=== PATIENT | male | born 1965 | race Caucasian/White ===

== ENCOUNTER 2018-02-09 10:57 | Inpatient (IN) | payer OTHER, MEDICAID ==
[~2018-02-09] VITALS: Ht 172.7 cm; Wt 70.3 kg
--- NOTE | 2018-02-09 10:59 | NUR ---
PT BROUGHT TO BED IN WHEELCHAIR BY CAREGIVER
--- NOTE | 2018-02-09 11:00 | NUR ---
PT. CAME INTO ED FROM [place] WITH CAREGIVER DUE TO LOW BLOOD PRESSURE. PT. IS AAO TO NAME AND DATE OF AND PLACE. PT. USES ACCESORY MUSCLES TO BREATH RR TACHYPNEIC, SKIN WARM, AND MOIST UPON TOUCH. DENIES ANY PAIN, DENIES SOB, DENIES CHEST PAIN. LS: WHEEZES BILATERALLY THROUGHOUT. NON PRODUCTIVE COUGH PRESENT. BED IN LOWEST POSTION, SAFETY PRECAUTIONS INITIATED. Nestor QUAN AWARE.WILL CONTINUE TO MONITOR.
[2018-02-09 11:04] VITALS: BP 92/56
[2018-02-09] MEDS ORDERED: BENA20TA PO (11:25)
[2018-02-09] MEDS ORDERED: ASCO500T45 PO (11:30)
[2018-02-09] MEDS ORDERED: MAGN400S60 PO (11:34)
[2018-02-09] MEDS ORDERED: ACET-2619 PO (11:36)
[2018-02-09] MEDS ORDERED: BISA5ECT43 RC (11:36)
[2018-02-09] MEDS ORDERED: NACL 0.9% 1,000 ML IV ONE ×2 (11:50→12:35)
[2018-02-09] MEDS ORDERED: ZINC220C12 PO (12:04)
[2018-02-09] MEDS ORDERED: CARB15DR8 OT (12:04)
[2018-02-09] MEDS ORDERED: MULT-1869 PO (12:04)
[2018-02-09] MEDS ORDERED: CALC-784 PO (12:04)
--- NOTE | 2018-02-09 12:05 | NUR ---
PT. HAS B/P OF . DR. MERRILL NOTIFIED. 1 L OF NACL BOLUS STARTED.
--- NOTE | 2018-02-09 12:16 | NUR ---
XRAY AT BEDSIDE.
[2018-02-09 12:36] LABS: BASOPHILS % (AUTO) 0.4 % (0.0-2.0); EOSINOPHILS # (AUTO) 0.3 K/uL (0-0.4); EOSINOPHILS % (AUTO) 3.1 % (0.0-4.0); HEMATOCRIT 43.5 % (36-52); HEMOGLOBIN 14.3 g/dL (12.0-18.0); LYMPHOCYTES # (AUTO) 1.4 K/uL (2.0-11.5); LYMPHOCYTES % (AUTO) 13.1 % (20.5-51.1); MEAN CORPUSCULAR HEMOGLOBIN 27 pg (27-31); MEAN CORPUSCULAR HGB CONC 33 g/dL (33-37); MEAN CORPUSCULAR VOLUME 83.3 fL (80-94); MONOCYTES # (AUTO) 0.8 K/uL (0.8-1.0); MONOCYTES % (AUTO) 7.1 % (1.7-9.3); NEUTROPHILS # (AUTO) 8.3 K/uL (1.8-7.7); NEUTROPHILS % (AUTO) 76.3 % (42.2-75.2); PLATELET COUNT (AUTO) 213 K/uL (140-450); RED BLOOD CELL COUNT(AUTO) 5.22 MIL/uL (4.20-6.10); RED CELL DISTRIBUTION WIDTH 14.4 % (11.6-13.7); WHITE BLOOD COUNT (AUTO) 10.9 K/uL (4.8-10.8)
[2018-02-09 12:52] LABS: ANION GAP 13.3 (8-16); CARBON DIOXIDE 26.4 mmol/L (21-32); POTASSIUM 3.7 mmol/L (3.5-5.1)
[2018-02-09 12:58] LABS: ALBUMIN 2.7 g/dL (3.4-5.0); TOTAL BILIRUBIN 0.6 mg/dL (0.0-1.0)
[2018-02-09 13:01] LABS: PROTHROMBIN TIME 10.7 secs (10.8-13.4)
[2018-02-09 13:14] LABS: APPEARANCE,URINE CLEAR (CLEAR); BILIRUBIN,URINE NEGATIVE (NEGATIVE); BLOOD, URINE NEGATIVE (NEGATIVE); COLOR,URINE YELLOW (YELLOW); LEUKOCYTE ESTERASE ,URINE NEGATIVE (NEGATIVE); NITRITE, URINE NEGATIVE (NEGATIVE); PH,URINE 7.5 (5.0-9.0); UGLUCOSE NEGATIVE (NEGATIVE)
[2018-02-09 13:26] LABS: RBC,URINE 0-5 (RARE) /HPF (0-5); WBC,URINE 0-5 (RARE) /HPF (0-5)
--- NOTE | 2018-02-09 14:25 | NUR ---
PT. RESTING COMFORTABLY IN BED, CAREGIVER AT BEDSIDE. WILL CONTINUE TO MONITOR.
--- NOTE | 2018-02-09 14:30 | NUR ---
PT. B/P AT , DR. MERRILL NOTIFIED. NO FURTHER ORDERS AT THIS TIME WILL CONTINUE TO MONITOR.
[2018-02-09] MEDS: NACL 0.9% 1,000 ML IV SCH (14:31)
[2018-02-09] MEDS ORDERED: DOCUSATE SODIUM 100 MG GELCAP PO PRN (14:35)
[2018-02-09] MEDS ORDERED: ACETAMINOPHEN 325 MG TAB PO PRN (14:35)
[2018-02-09] MEDS ORDERED: HYDROcodone/APAP 7.5/325 MG 1 TAB PO PRN (14:35)
[2018-02-09] MEDS ORDERED: ONDANSETRON 4 MG/2 ML VIAL IM/IVP PRN (14:35)
[2018-02-09] MEDS ORDERED: MORPHINE SULFATE 4 MG/ML SYR IVP PRN (14:35)
--- NOTE | 2018-02-09 14:57 | NUR ---
Patient will be admitted to care of DR. SCHULER . Admited to TELE FLOOR . Will go to room 121 B . Belongings list completed. Report to TIRSO HAYS .
--- NOTE | 2018-02-09 15:00 | NUR ---
RECEIVED PT ON UNIT VIA [place], REPORT RECEIVED FROM TIRSO HOANG. PT IS AAOX3, BEDBOUND, PT IS LEGALLY BLIND, PT HAS RIGHT ARM CONTRACTURE AND BILATERAL LOWER EXT CONTRACTURES, REDNESS NOTED ON RIGHT FOOT, BONY PROMINENCE, PT HAS IV ON LEFT FA, PATENT, INTACT, FLUSHING WELL, PT IS DIAPHORETIC, PT AXILLARY TEMP IS 97.5, NO S/S OF RESPIRATORY DISTRESS OR DISCOMFORT NOTED, DISCUSSED PLAN OF CARE WITH PT AND PATIENT'S CAREGIVER (WOOD) WHO IS AT BEDSIDE, ORIENTED PATIENT TO ROOM, SAFETY/FALL PRECAUTIONS ARE IN PLACE, CALL LIGHT IS WITHIN REACH, WILL CONTINUE TO MONITOR
[2018-02-09 15:11] LABS: FREE T4 (FREE THYROXINE) 1.18 ng/dL (0.76-1.46); MAGNESIUM 1.8 mg/dL (1.8-2.4); PHOSPHORUS 2.5 mg/dL (2.5-4.9); THYROID STIMULATING HORMONE 0.19 uIU/mL (0.34-3.74)
[2018-02-09 15:38] LABS: BARBITURATE, URINE NEG. ng/ml (NEG <=200); BENZODIAZEPINE, URINE NEG. ng/mL (NEG <=200); CANNABINOID, URINE NEG. ng/mL (NEG <=50); COCAINE, URINE NEG. ng/mL (NEG <=300); OPIATE, URINE NEG. ng/mL (NEG <=2000); PHENCYCLIDINE SCREEN,URINE NEG. ng/mL (NEG <=25)
[2018-02-09 16:00] VITALS: BP 102/70
[2018-02-09] MEDS ORDERED: BISACODYL 5 MG TABEC PO PRN (16:30)
[2018-02-09] MEDS ORDERED: MAGNESIUM HYDROXIDE 2400 MG/30 ML UDC PO PRN (16:30)
--- NOTE | 2018-02-09 17:00 | NUR ---
PT IS SLEEPING IN BED, NO S/S OF RESPIRATORY DISTRESS OR DISCOMFORT NOTED. CALL LIGHT WITHIN REACH.
--- NOTE | 2018-02-09 19:25 | NUR ---
ENDORSED PT TO CUTTER ALUMINUM SHEET NURSE FOR CONTINUITY OF CARE. PT STABLE AT THIS TIME.
--- NOTE | 2018-02-09 19:26 | NUR ---
RECEIVED REPORT FROM DAYSHIFT NURSE AT BEDSIDE FOR CONTINUITY OF CARE. PT AAOX2. PT IS LEGALLY BLIND. 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 PT IV NOTED LFA 20G NS 110ML/HR. PT BED LOWERED CALL LIGHT WITHIN REACH. WILL CONTINUE TO MONITOR.
[2018-02-09] MEDS: CALCIUM CARB/VIT-D 500 MG/200 IU 1 TAB PO SCH (20:19)
[2018-02-09] MEDS: ASCORBIC ACID 500 MG TAB PO SCH (20:19)
--- NOTE | 2018-02-09 20:30 | NUR ---
PT TOOK MEDS WELL. ABLE TO SWALLOW VITAMINS. PT WANTS TO GO TO SLEEP. TURNED OFF TV. WILL CONTINUE TO MONITOR.
[2018-02-09 21:19] VITALS: BP 108/62
--- NOTE | 2018-02-09 23:01 | NUR ---
PT IS SLEEPING. NO SOB. NO S/S OF DISTRESS. WILL CONTINUE TO MONITOR.
[2018-02-09 23:42] VITALS: BP 97/64
[2018-02-10] MEDS: NACL 0.9% 1,000 ML IV SCH ×2 (01:04→09:35)
[2018-02-10 04:02] VITALS: BP 104/72
--- NOTE | 2018-02-10 04:09 | NUR ---
ASSESSED PT VITALS. PT ASLEEP. WILL CONTINUE TO MONITOR.
[2018-02-10 06:04] LABS: BASOPHILS % (AUTO) 0.3 % (0.0-2.0); EOSINOPHILS # (AUTO) 0.5 K/uL (0-0.4); EOSINOPHILS % (AUTO) 5.4 % (0.0-4.0); HEMATOCRIT 43.1 % (36-52); LYMPHOCYTES # (AUTO) 1.5 K/uL (2.0-11.5); LYMPHOCYTES % (AUTO) 17.4 % (20.5-51.1); MEAN CORPUSCULAR HEMOGLOBIN 27 pg (27-31); MEAN CORPUSCULAR HGB CONC 32 g/dL (33-37); MEAN CORPUSCULAR VOLUME 83.4 fL (80-94); MONOCYTES # (AUTO) 0.5 K/uL (0.8-1.0); MONOCYTES % (AUTO) 5.7 % (1.7-9.3); NEUTROPHILS % (AUTO) 71.2 % (42.2-75.2); PLATELET COUNT (AUTO) 203 K/uL (140-450); RED BLOOD CELL COUNT(AUTO) 5.17 MIL/uL (4.20-6.10); RED CELL DISTRIBUTION WIDTH 14.2 % (11.6-13.7); WHITE BLOOD COUNT (AUTO) 8.5 K/uL (4.8-10.8)
[2018-02-10 06:18] LABS: T4 (THYROXINE) 7.6 ug/dL (4.5-12.0)
[2018-02-10 06:24] LABS: ANION GAP 10.9 (8-16); CARBON DIOXIDE 26.2 mmol/L (21-32); CREATININE 0.8 mg/dL (0.7-1.3); POTASSIUM 4.1 mmol/L (3.5-5.1)
[2018-02-10 06:34] LABS: MAGNESIUM 1.7 mg/dL (1.8-2.4); PHOSPHORUS 2.9 mg/dL (2.5-4.9)
--- NOTE | 2018-02-10 07:26 | NUR ---
GAVE PT REPORT AT BEDSIDE TO DAYSHIFT NURSE FOR CONTINUITY OF CARE.
--- NOTE | 2018-02-10 07:27 | NUR ---
RECEIVED BEDSIDE REPORT FROM HEEL NAILING MACHINE OPERATOR NURSE. PATIENT IS AWAKE. ALERT AND ORIENTEDX3. NO COMPLAINTS AT THIS TIME. NO SIGNS OF DISTRESS ON ROOM AIR. IV ON L FA 22G INFUSING NS AT 110ML/HR. IV IS CLEAN, DRY AND INTACT. R ARM IS CONTRACTED, BLE CONTRACTED, REDNESS ON R FOOT, BLE SCABS, PATIENT IS A QUADRIPLEGIC. PATIENT IS LEGALLY BLIND, SIGNS ARE POSTED. FALL RISK PRECAUTIONS IN PLACE. BED IN LOW POSITION. CALL LIGHT WITHIN REACH. BED ALARM ON. TELE MONITOR ON. WILL CONTINUE TO MONITOR THE PATIENT.
[2018-02-10 08:00] VITALS: BP 123/83
[2018-02-10] MEDS: ASCORBIC ACID 500 MG TAB PO SCH (08:51)
[2018-02-10] MEDS: CALCIUM CARB/VIT-D 500 MG/200 IU 1 TAB PO SCH (08:51)
[2018-02-10] MEDS ORDERED: ZINC SULF 220 MG CAP PO SCH (09:00)
[2018-02-10] MEDS ORDERED: MULTIVITAMIN/MINERALS 1 TAB PO SCH (09:00)
--- NOTE | 2018-02-10 09:13 | NUR ---
ADMINISTERED MORNING MEDS. PATIENT TOLERATED WELL. NO COMPLAINTS AT THIS TIME. BED IN LOW POSITION, WILL CONTINUE TO MONITOR THE PATIENT.
--- NOTE | 2018-02-10 09:14 | NUR ---
PATIENT HAS BEEN SCREENED AND CATEGORIZED MODERATE NUTRITION RISK. PATIENT WILL BE SEEN WITHIN 3-5 DAYS OF ADMISSION. 02/12/18 02/14/[address]
--- NOTE | 2018-02-10 10:25 | NUR ---
PATIENT IS SLEEPING, NO SIGNS OF DISTRESS ON ROOM AIR. BED IN LOW POSITION. WILL CONTINUE TO MONITOR THE PATIENT.
[2018-02-10 12:00] VITALS: BP 120/73
--- NOTE | 2018-02-10 12:20 | NUR ---
VITALS ARE WITHIN NORMAL LIMITS. PATIENT HAS NO COMPLAINTS AT THIS TIME. NO SIGNS OF DISTRESS ON ROOM AIR, BED IN LOW POSITION. CALL LIGHT WITHIN REACH. WILL CONTINUE TO MONITOR THE PATIENT.
--- NOTE | 2018-02-10 13:17 | NUR ---
PATIENT IS SLEEPING. NO SIGNS OF DISTRESS ON ROOM AIR. PATIENT IS EASILY AROUSABLE. WILL CONTINUE TO MONITOR THE PATIENT.
[2018-02-10] MEDS ORDERED: MAG SULF 2000 MG/WATER PREMIX 50 ML IV SCH (13:30)
--- NOTE | 2018-02-10 14:35 | NUR ---
TOLD DOCTOR ABOUT INCREASED HEART RATE ON TELE MONITOR. DR AND I CHECKED THE PATIENT AND THE APICAL HEART RATE IS 88, ON PULSE OX IT IS 84. CHANGED TELE MONITOR AND DOCTOR ORDERED A STAT EKG.
[2018-02-10 16:00] VITALS: BP 125/78
--- NOTE | 2018-02-10 16:00 | NUR ---
PATIENT IS SLEEPING. NO SIGNS OF RESP DISTRESS ON ROOM AIR. NO COMPLAINTS AT THIS TIME. BED IN LOW POSITION, CALL LIGHT WITHIN REACH. WILL CONTINUE TO MONITOR THE PATIENT.
--- NOTE | 2018-02-10 18:50 | NUR ---
GAVE REPORT TO WOOD THE CARTOON DESIGNER. ALL QUESTIONS ANSWERED.
--- NOTE | 2018-02-10 18:55 | NUR ---
EDUCATED THE PATIENT AND BUTTON INSPECTOR ON DISEASE PROCESS, S/SX WHEN TO GO TO THE ER, INCREASING FLUIDS TO PREVENT HYPOTENSION, AND THE CHANGES IN MEDICATIONS. WOOD THE CAREGIVER AND THE PATIENT VERBALIZED UNDERSTANDING. ALL DISCHARGE PAPER WORK IS SIGNED. IV IS REMOVED, IV TIP IS INTACT. REMOVED ID BANDS, REMOVED TELE. PATIENT LEFT IN STABLE CONDITION IN WHEELCHAIR WITH WOOD AND EMILIO WHITMAN.
[2018-02-15] MEDS ORDERED: PSYL660P5 PO (13:23)
[2018-02-15] MEDS ORDERED: LEVO750T2 PO (14:24)
[2018-02-15] MEDS ORDERED: INUL1CTB PO (14:25)
== END 2018-02-10 18:55 | disposition home or self-care (01) | DRG 640 ==
LOC: MED 10:57 → MTU 14:31
PROVIDERS: ADMIT Family Medicine Sports Medicine; ATTEND Family Medicine Sports Medicine
DX: E86.0 Dehydration (principal); E43 Unspecified severe protein-calorie malnutrition; E11.621 Type 2 diabetes mellitus with foot ulcer; E87.2 Acidosis; I95.2 Hypotension due to drugs; L97.519 Non-pressure chronic ulcer of other part of right foot with unspecified severity; I10 Essential (primary) hypertension; M81.0 Age-related osteoporosis without current pathological fracture; H54.3 Unqualified visual loss, both eyes; M21.6X9 Other acquired deformities of unspecified foot; E83.42 Hypomagnesemia; E05.80 Other thyrotoxicosis without thyrotoxic crisis or storm; Z87.820 Personal history of traumatic brain injury; Z68.23 Body mass index [BMI] 23.0-23.9, adult; Z93.1 Gastrostomy status; Z88.1 Allergy status to other antibiotic agents; Z88.8 Allergy status to other drugs, medicaments and biological substances; Z91.018 Allergy to other foods; T46.4X5A Adverse effect of angiotensin-converting-enzyme inhibitors, initial encounter; Y92.89 Other specified places as the place of occurrence of the external cause
CPT/HCPCS: 36415; 71045; 80048; 80053; 80305; 81001; 82150; 83036; 83605; 83690; 83735; 83880; 84100; 84436; 84439; 84443; 84479; 84484; 85025; 85610; 85730; 87040; 87081; 87086; 93005; 96360; 99285; C1758; J3475; J7030; Q0092

== ENCOUNTER 2018-08-22 17:09 | Emergency (ER) | payer OTHER, MEDICAID ==
[~2018-08-22] VITALS: Ht 177.8 cm; Wt 68.0 kg
[~2018-08-22 17:09] MED LIST: ACET-2619 PO; ASCO500T45 PO; BISA5ECT43 RC; CALC-784 PO; INUL1CTB PO; LEVO750T2 PO; MAGN400S60 PO; MULT-1869 PO; PSYL660P5 PO; ZINC220C12 PO
[2018-08-22 17:45] VITALS: BP 101/103
[2018-08-22 21:15] VITALS: BP 121/88
== END 2018-08-22 21:15 | disposition home or self-care (01) ==
LOC: MED 17:09
DX: S00.81XA Abrasion of other part of head, initial encounter (principal); S60.211A Contusion of right wrist, initial encounter; I10 Essential (primary) hypertension; H54.7 Unspecified visual loss; Z79.899 Other long term (current) drug therapy; Z88.1 Allergy status to other antibiotic agents; Z91.018 Allergy to other foods; W06.XXXA Fall from bed, initial encounter; Y93.89 Activity, other specified; Y92.89 Other specified places as the place of occurrence of the external cause; Y99.8 Other external cause status
CPT/HCPCS: 70450; 73110; 99284

== ENCOUNTER 2019-10-26 07:10 | Inpatient (IN) | payer OTHER, MEDICAID ==
[~2019-10-26] VITALS: Ht 152.4 cm; Wt 72.6 kg
[~2019-10-26 07:10] MED LIST changes: +BISA-188 RC; -BISA5ECT43 RC
[2019-10-26 07:19] VITALS: BP 126/80
--- NOTE | 2019-10-26 07:32 | NUR ---
54 Y/O M BIBA WITH C/O DISTENDED ABDOMEN THAT IS FIRM TO TOUCH, BOWEL SOUNDS ACTIVE ALL 4 QUADRANTS, VOMITTING COFFE GROUND EMESIS X2 DAYS. PT HAS CONTRACTIONS BILATERAL HANDS AND FEET. SKIN IS INTACT. PT AO4. PT ON 2 L OXYGEN NC WITH O2 AT 98%. CAREGIVER AT BEDSIDE, SIDE RAIL X2 IN PLACE. PT BLOOD SUGAR 175. MEDHX: S/P CRANIOTOMY
--- NOTE | 2019-10-26 08:15 | NUR ---
SECOND IV PLACED 20G LT HAND, LABS DRAWN, CONVERTED TO SALINE LOCK. STRAIGHT CATHETER PERFORMED, 800 ML OF DARK URINE EMPTIED, SENT TO LAB FOR UA. PT VOMITIING COFFEE GROUND EMESIS, HEAD OF BED RAISED HIGH FOWLERS. PT DENIES PAIN.
[2019-10-26] MEDS ORDERED: NACL 0.9% 1,000 ML IV ONE ×2 (08:20→09:35)
[2019-10-26] MEDS ORDERED: ONDANSETRON 4 MG/2 ML VIAL IVP ONE (08:20)
[2019-10-26] MEDS ORDERED: ONDANSETRON 4 MG/2 ML VIAL ONE (08:21)
--- NOTE | 2019-10-26 08:33 | NUR ---
X-RAY TECH AT BEDSIDE PERFORMING ORDERED TEST.
--- NOTE | 2019-10-26 08:35 | NUR ---
BLOOD DRAWN, URINE COLLECTED. SENT TO LAB.
--- NOTE | 2019-10-26 08:48 | NUR ---
EMT AT BEDSIDE PERFORMING EKG.
--- NOTE | 2019-10-26 08:49 | NUR ---
PT LEFT FOR CT SCAN BY JEN.
[2019-10-26 08:58] LABS: BASOPHILS % (AUTO) 0.2 % (0.0-2.0); HEMOGLOBIN 14.2 g/dL (12.0-18.0); LYMPHOCYTES # (AUTO) 0.9 K/uL (2.0-11.5); LYMPHOCYTES % (AUTO) 5.8 % (20.5-51.1); MEAN CORPUSCULAR HEMOGLOBIN 27 pg (27-31); MEAN CORPUSCULAR HGB CONC 32 g/dL (33-37); MEAN CORPUSCULAR VOLUME 83.5 fL (80-94); MONOCYTES # (AUTO) 1.1 K/uL (0.8-1.0); MONOCYTES % (AUTO) 7.1 % (1.7-9.3); NEUTROPHILS # (AUTO) 13.2 K/uL (1.8-7.7); NEUTROPHILS % (AUTO) 86.9 % (42.2-75.2); PLATELET COUNT (AUTO) 211 K/uL (140-450); RED BLOOD CELL COUNT(AUTO) 5.26 MIL/uL (4.20-6.10); RED CELL DISTRIBUTION WIDTH 14.3 % (11.6-13.7); WHITE BLOOD COUNT (AUTO) 15.2 K/uL (4.8-10.8)
[2019-10-26 09:13] LABS: APPEARANCE,URINE CLEAR (CLEAR); BILIRUBIN,URINE NEGATIVE (NEGATIVE); BLOOD, URINE 3+ (NEGATIVE); COLOR,URINE DARK YELLOW (YELLOW); LEUKOCYTE ESTERASE ,URINE NEGATIVE (NEGATIVE); NITRITE, URINE NEGATIVE (NEGATIVE); UGLUCOSE NEGATIVE (NEGATIVE)
[2019-10-26 09:24] LABS: RBC,URINE 20-50 /HPF (0-5); WBC,URINE 0-5 /HPF (0-5)
--- NOTE | 2019-10-26 09:30 | NUR ---
PT POSITIONED FOR COMFORT, DENIES PAIN, VSS, PT CLEANED OF VOMIT, TOWELS PLACED ON PT CHEST. ENTERPRISE CLOUD ARCHITECT AT BEDSIDE.
--- NOTE | 2019-10-26 09:31 | NUR ---
FLU SWAB PERFORMED, SENT TO LAB.
[2019-10-26] MEDS ORDERED: SODIUM PHOSPHATE 118 ML ENEM RC ONE (09:35)
[2019-10-26] MEDS ORDERED: PIPERACILLIN/TAZOBACTAM 3.375 GM in DEXTROSE 5% 50 ML IV ONE (09:35)
[2019-10-26 09:38] LABS: PROTHROMBIN TIME 9.7 secs (10.8-13.4)
[2019-10-26] MEDS ORDERED: PIPERACILLIN/TAZOBACTAM 3.375 GM VIAL IV ONE (09:47)
--- NOTE | 2019-10-26 10:00 | NUR ---
PT RESTING COMFORTABLY, VSS STABLE, RESPIRATIONS EVEN. PT ON 2 L 02 NC OXYGEN LEVEL 97%. AUTOMOTIVE EXHAUST EMISSIONS TECHNICIAN AT BEDSIDE.
[2019-10-26] MEDS ORDERED: VANCOMYCIN 1,000 MG in DEXTROSE 5% 250 ML IV ONE (10:40)
[2019-10-26] MEDS ORDERED: NACL 0.9% 500 ML IV ONE (10:40)
[2019-10-26 10:41] LABS: ANION GAP 17.2 (8-16); CARBON DIOXIDE 25.8 mmol/L (21-32); CREATININE 1.1 mg/dL (0.7-1.3)
[2019-10-26] MEDS ORDERED: NACL 0.9% 1,000 ML IV SCH (10:49)
[2019-10-26] MEDS ORDERED: HYDROcodone/APAP 5/325 MG 1 TAB TAB PO PRN (10:50)
[2019-10-26] MEDS ORDERED: ONDANSETRON 4 MG/2 ML VIAL IM/IVP PRN (10:50)
[2019-10-26] MEDS ORDERED: MORPHINE SULFATE 2 MG/ML SYR IVP PRN (10:50)
[2019-10-26] MEDS ORDERED: DOCUSATE SODIUM 100 MG GELCAP PO PRN (10:50)
[2019-10-26 10:56] LABS: ALBUMIN 2.9 g/dL (3.4-5.0); TOTAL BILIRUBIN 0.7 mg/dL (0.0-1.0)
[2019-10-26] MEDS ORDERED: POTASSIUM CHLORIDE 10 MEQ TABER PO ONE (11:10)
--- NOTE | 2019-10-26 11:10 | NUR ---
DR STANLEY AT BEDSIDE EXAMINING PATIENT. PT RESTING COMFORTABLY, VSS, ANSWERING QUESTIONS APPROPRIATELY, AO4
[2019-10-26] MEDS ORDERED: VANCOMYCIN 1,000 MG VIAL ONE (11:15)
--- NOTE | 2019-10-26 11:32 | NUR ---
PT RESTING COMFORTABLY, NACL RUNNING W/O DIFFICULTIES LT HAND 20 G, IV SITE CLEAN, DRY, INTACT. ABX RUNNING W/O DIFFICULTIES RT HAND, 20 G, IV SITE CLEAN, INTACT, DRY. REFRIGERATOR GLAZIER AT BEDSIDE. VSS.
[2019-10-26] MEDS ORDERED: KCL 20 MEQ/WATER INJ PREMIX 200 ML IV ONE (11:35)
[2019-10-26] MEDS ORDERED: CARB15DR89 OP (11:39)
[2019-10-26] MEDS ORDERED: LOSA50TA66 PO (11:39)
[2019-10-26] MEDS ORDERED: PSYL0.5227 PO (11:39)
[2019-10-26] MEDS ORDERED: RANI150C PO (11:39)
[2019-10-26] MEDS ORDERED: CARB15DR5 OT (11:39)
[2019-10-26] MEDS ORDERED: METO-485 PO (11:39)
[2019-10-26 11:46] LABS: CHOL/HDL RATIO 3.5 (1-4.5); MAGNESIUM 1.6 mg/dL (1.8-2.4); PHOSPHORUS 4.1 mg/dL (2.5-4.9); THYROID STIMULATING HORMONE 0.32 uIU/mL (0.34-3.74)
[2019-10-26] MEDS ORDERED: BISACODYL 10 MG SUPP RC SCH (12:01)
[2019-10-26] MEDS ORDERED: PIPERACILLIN/TAZOBACTAM 3.375 GM in DEXTROSE 5% 50 ML IV SCH (12:03)
[2019-10-26] MEDS ORDERED: ALBUTEROL SULFATE/IPRATROPIU 3 ML SOL IH PRN (13:40)
[2019-10-26 14:00] VITALS: BP 113/69
[2019-10-26] MEDS ORDERED: PANTOPRAZOLE 40 MG INJ VIAL IVP SCH (14:00)
--- NOTE | 2019-10-26 14:00 | NUR ---
PT ARRIVED FROM ER IN [facility], REPORT RECEIVED FROM ROVING OR YARN COLOR CHECKER, TRANSFERED TO BED WITH TOTAL ASSIST, AWAKE, SLEEPY, ORIENTED X3, RESP EVEN UNALBORED ON 2L NC, SKIN WARM DRY COLOR WNL, PT PLACED ON CARDIAC MONTIOR, PT ORIENTED TO ROOM AND FLOOR, MRSA SWAB DONE, STOOL X1, PERICARE DONE, SKIN INSPECTED, INTACT, 20G PIV TO LEFT AC, KCL INFUSING, R HAND 18G SL, SITES WNL, CALL KO WITHIN REACH, SIDE RAILS UP, BED LOCKED IN LOW POSITION, WILL CONTINUE TO MONTIOR.
--- NOTE | 2019-10-26 14:03 | NUR ---
Patient will be admitted to care of DR GARCIA. Admited to MED SURG TELE. Will go to room 106A. Belongings list completed. Report to TIRSO MAGANA.
[2019-10-26] MEDS ORDERED: SENNA 8.6 MG TAB PO SCH (14:12)
--- NOTE | 2019-10-26 14:35 | NUR ---
PT WITH SMALL AMOUNT OF EMESIS DARK COFFEE GROUND COLOR, SUCTIONED OUT OF MOUTH, PT POSITIONED WITH HOB ELEVATED, WILL MEDICATE PER ORDER.
[2019-10-26] MEDS ORDERED: MAGNESIUM CITRATE 300 ML BTL PO SCH (15:10)
[2019-10-26] MEDS: SENNA 8.6 MG TAB PO SCH ×3 (15:20→22:12)
--- NOTE | 2019-10-26 15:30 | NUR ---
MEDICATIONS GIVEN, PT ABLE TO SWALLOW PILLS WITHOUT PROBLEM.
--- NOTE | 2019-10-26 15:30 | NUR ---
SZ PRECAUTION/FALL PRECAUTION INITIATED.
--- NOTE | 2019-10-26 15:45 | NUR ---
LARGE HARD BM X1
[2019-10-26 16:00] VITALS: BP 103/57
--- NOTE | 2019-10-26 16:10 | NUR ---
PT'S SISTER BOUBACAR RODRIGUEZ CALLED AT [phone], NOTIFIED OF PT'S ADMISSION TO HOSPITAL, EGD EXPLAINED BY DR STANLEY, VERBAL CONSENT OBTAINED BY 2RNS.
[2019-10-26] MEDS: ONDANSETRON 4 MG/2 ML VIAL IVP SCH ×2 (16:25→22:12)
[2019-10-26] MEDS: POLYETHYLENE GLYCOL 17 GM/PKT PO SCH (16:25)
[2019-10-26] MEDS ORDERED: METOCLOPRAMIDE 10 MG TAB PO SCH (17:00)
--- NOTE | 2019-10-26 17:30 | NUR ---
WENDY OF [facility] CALLED TO INQUIRE ABOUT IMMUNIZATION STATUS AND ADMISSION QUESTIONS, MAURICIO STATED SHE WILL CALL BACK IN 15MIN AFTER THE MEETING, WILL AWAIT FOR HER CALL BACK.
--- NOTE | 2019-10-26 18:05 | NUR ---
LARGE HARD BM AGAIN, PERICARE DONE.
[2019-10-26] MEDS: PIPERACILLIN/TAZOBACTAM 3.375 GM in DEXTROSE 5% 50 ML IV SCH (18:17)
[2019-10-26] MEDS: POTASSIUM CHL 30 MEQ/ D5-1/2NS 1,000 ML IV SCH (18:18)
[2019-10-26] MEDS: METOCLOPRAMIDE 10 MG/2 ML INJ VIAL IVP SCH (18:29)
[2019-10-26] MEDS: ALBUTEROL SULFATE/IPRATROPIU 3 ML SOL IH SCH (19:17)
--- NOTE | 2019-10-26 19:40 | NUR ---
RECIEVED PT AAOX1 - HX CVA , RESPONSE TO SIMPLE QUESTION BY NODDING THE HEAD . WITH IV SITES INTACT AND PATENT , NPO - SOFT ADB . HAD VOMITED OF COFFEE GROUND EMESIS PRIOR TO ADM. NID - O2 SAT WNL - ON O2 AT 2LPM/NC . INCONTINENT. PLAN OF CARE DISCUSSED BUT POOR UNDERSTANDING DUE TO MENTAL STATUS . ON FALL / SAFETY PRECAUTION PROTOCOL - BED BOUND . WILL CONT. TO MONITOR.- WITH STICKY OOZING BROWNISH STOOL. FOR CLOSELY WATCH.
[2019-10-26 20:00] VITALS: BP 100/60
--- NOTE | 2019-10-26 22:00 | NUR ---
MADE ROUNDS . O2 SAT .-WNL .NO S/SX OF ACUTE DISTRESS NOTED AT THIS TIME. -WILL CONT. TO MONITOR.
[2019-10-26] MEDS: PANTOPRAZOLE 40 MG INJ VIAL IVP SCH (22:11)
[2019-10-26] MEDS: LACTULOSE 20 GM/30 ML UDC PO SCH (22:12)
[2019-10-26] MEDS ORDERED: CRUSHER, PILL MC ONE (22:23)
[2019-10-27] VITALS: BP 99/60
--- NOTE | 2019-10-27 | NUR ---
MADE ROUNDS , NO S/ SXS OF ACUTE DISTRESS NOTED AT THIS TIME . WILL CONT. TO MONITOR.
--- NOTE | 2019-10-27 00:55 | NUR ---
PT WAS NOT PLACED ON BiPAP ORDERED DUE TO CONTRAINDICATION (VOMITING). FINDINGS WERE REPORTED TO DR. PATEL
[2019-10-27] MEDS ORDERED: SODIUM PHOSPHATE 118 ML ENEM RC SCH ×2 (01:00→06:00)
[2019-10-27] MEDS: PIPERACILLIN/TAZOBACTAM 3.375 GM in DEXTROSE 5% 50 ML IV SCH ×5 (01:42→23:21)
--- NOTE | 2019-10-27 02:00 | NUR ---
MADE ROUNDS . BP RE CHECK 90/60 MMHG , THERE IS INCREASING AMT OF STOOL DARK BROWN - WILL CONT. TO MONITOR.
--- NOTE | 2019-10-27 03:00 | NUR ---
BP RE CHECK - 90/50MMHG , WITH LARGE AMOUNT OF BLACK TARRY STOOL - REFER TO ALEJANDRO MADE NEW ORDERS AND CARRIED OUT. WILL CONT. TO MONITOR.
--- NOTE | 2019-10-27 03:30 | NUR ---
BP 80/50 - WATERY TARRY STOOL - WITH ONGOING IVF BOLUS - FOR CLOSELY WATCH.
[2019-10-27] MEDS ORDERED: NACL 0.9% 1,000 ML IV ONE ×2 (03:40→05:00)
[2019-10-27 04:00] VITALS: BP 90/50
--- NOTE | 2019-10-27 04:00 | NUR ---
90/50 - UPDATED ALEJANDRO REGARDING BP - MADE NEW ORDERS AND CARRIED OUT .
[2019-10-27 04:10] LABS: ANION GAP 13.1 (8-16); CARBON DIOXIDE 25.6 mmol/L (21-32); CREATININE 1.3 mg/dL (0.7-1.3); POTASSIUM 3.7 mmol/L (3.5-5.1)
[2019-10-27 04:53] LABS: BASOPHILS # (AUTO) 0.1 K/uL (0.00-0.22); BASOPHILS % (AUTO) 0.3 % (0.0-2.0); EOSINOPHILS % (AUTO) 0.1 % (0.0-4.0); HEMATOCRIT 36.1 % (36-52); HEMOGLOBIN 11.5 g/dL (12.0-18.0); LYMPHOCYTES # (AUTO) 2.2 K/uL (2.0-11.5); LYMPHOCYTES % (AUTO) 14.7 % (20.5-51.1); MEAN CORPUSCULAR HEMOGLOBIN 27 pg (27-31); MEAN CORPUSCULAR HGB CONC 32 g/dL (33-37); MEAN CORPUSCULAR VOLUME 85.6 fL (80-94); MONOCYTES # (AUTO) 1.5 K/uL (0.8-1.0); MONOCYTES % (AUTO) 10.1 % (1.7-9.3); NEUTROPHILS # (AUTO) 11.1 K/uL (1.8-7.7); NEUTROPHILS % (AUTO) 74.8 % (42.2-75.2); PLATELET COUNT (AUTO) 196 K/uL (140-450); RED BLOOD CELL COUNT(AUTO) 4.22 MIL/uL (4.20-6.10); RED CELL DISTRIBUTION WIDTH 14.1 % (11.6-13.7); WHITE BLOOD COUNT (AUTO) 14.8 K/uL (4.8-10.8)
--- NOTE | 2019-10-27 05:00 | NUR ---
BP RE CHECK - 90/50 - WITH ON GOING IV BOLUS - FOR CLOSELY WATCH.
[2019-10-27] MEDS: POTASSIUM CHL 30 MEQ/ D5-1/2NS 1,000 ML IV SCH ×2 (05:18→19:36)
--- NOTE | 2019-10-27 06:00 | NUR ---
BP RECHECKED 90/60 . O2 SAT WNL , AWAKEABLE - ON PILE DRIVER OPERATOR. WILL CONT. TO MONITOR. STILL WITH TARRY STOOL - WILL WAIT THE RESULT OF BLOOD EXAM . [place] 84.
[2019-10-27] MEDS: METOCLOPRAMIDE 10 MG/2 ML INJ VIAL IVP SCH ×3 (06:46→17:26)
[2019-10-27] MEDS: ALBUTEROL SULFATE/IPRATROPIU 3 ML SOL IH SCH ×3 (07:03→19:14)
--- NOTE | 2019-10-27 07:15 | NUR ---
RECEIVED BEDSIDE REPORT FROM SCREW DOWN NURSE. PT IS ASLEEP, ON 2L O2 NS, NGT IN PLACE. NO S/S OF DISTRESS NOTED. FALL AND SEIZURE PRECAUTIONS IN PLACE. NGT IS NOT CONNECTED AT THIS TIME, WAITING FOR ABD XR RESULT TO VERIFY PLACEMENT. IV SITES L HAND 20 G, AND R HAND 20 G, CURRENTLY INFUSING D5NS KCL 30 MEQ AT 10 ML/HR. PER SCREW DOWN NURSE, THERE ARE NO MORE IV BAGS OF THE D5NS KCL 30; WILL FOLLOW UP WITH PHARMACY. CALL LIGHT IS WITHIN REACH. WILL CONTINUE TO MONITOR.
--- NOTE | 2019-10-27 07:30 | NUR ---
ENDORSED TO AM SHIFT FOR CONT. OF CARE - I SAID TO SHELLY CALL PHARMACY FOR IVF WITH 30 MEQ KCL AND PT IS FOR REPEAT CXR , X RAY OF ABD.FOR PLACEMENT .
[2019-10-27 08:00] VITALS: BP 93/52
[2019-10-27 08:12] LABS: T4 (THYROXINE) 8.9 ug/dL (4.5-12.0)
--- NOTE | 2019-10-27 08:33 | NUR ---
PATIENT HAS BEEN SCREENED AND CATEGORIZED HIGH NUTRITION RISK. PATIENT WILL BE SEEN WITHIN 1-2 DAYS OF ADMISSION. 10/27/[address] Addendum: 10/27/19 at [address] PT HAS BEEN RE-SCREENED MODERATE NUTRITION RISK AND WILL BE SEEN 3-5 DAYS WITHIN OF ADMISSION. DEBBY GUEVARA RD
--- NOTE | 2019-10-27 08:50 | NUR ---
DR STANLEY MADE AWARE THAT ABD XRAY CONFIRMED ACCURATE NGT PLACEMENT. DR STANLEY WILL NOTIFY RN WHICH SETTING TO PLACE NGT SUCTION ON.
[2019-10-27] MEDS: CARBAMIDE PEROXIDE 6.5% OT 15 ML BTL OT SCH ×2 (09:00→20:28)
[2019-10-27] MEDS ORDERED: MAGNESIUM CITRATE 300 ML BTL PO SCH (09:00)
[2019-10-27] MEDS: LOSARTAN 50 MG TAB PO SCH (09:00)
[2019-10-27] MEDS ORDERED: SENNA 8.6 MG TAB PO SCH (09:00)
--- NOTE | 2019-10-27 10:09 | NUR ---
SCREEN FOR LOW TIMOTHY SCALE AT RISK, CONTINUE TO FOLLOW PRESSURE ULCER PREVENTION INTERVENTIONS. -TURN AND REPOSITION PATIENT Q2H, ASSIST IF NEEDED -ASSESS AND MONITOR SKIN CONDITION DURING POSITION CHANGES -OFFLOAD BILATERAL HEELS BY PLACING PILLOWS UNDER CALVES AT ALL TIMES, UNLESS OTHERWISE CONTRAINDICATED -PRESSURE REDISTRIBUTION BY PLACING PILLOWS AND OFFLOADING SACRALCOCCYX -KEEP SKIN CLEAN AND DRY AT ALL TIMES.
--- NOTE | 2019-10-27 11:00 | NUR ---
SPOKE WITH DR SCHMITZ; PER DR SCHMITZ, NO NGT SUCTION NEEDED, AND ADMINISTER ALL PO MEDS VIA THE NGT. DR SCHMITZ NOT DECIDED IF PT STILL NEEDS EGD. WILL FOLLOW UP WITH RESIDENT
[2019-10-27] MEDS: ONDANSETRON 4 MG/2 ML VIAL IVP SCH ×2 (11:16→20:16)
[2019-10-27] MEDS: LACTULOSE 20 GM/30 ML UDC PO SCH ×2 (11:16→20:16)
[2019-10-27] MEDS: ZINC SULF 220 MG CAP PO SCH (11:16)
[2019-10-27] MEDS: PANTOPRAZOLE 40 MG INJ VIAL IVP SCH ×2 (11:16→20:16)
[2019-10-27] MEDS: POLYETHYLENE GLYCOL 17 GM/PKT PO SCH ×3 (11:17→17:26)
--- NOTE | 2019-10-27 11:45 | NUR ---
AM MEDS ADMINISTERED VIA THE NGT. PT TOLERATED WELL. FAMILY IS AT BEDSIDE.
[2019-10-27 12:00] VITALS: BP 115/68
[2019-10-27 12:47] LABS: BASOPHILS % (AUTO) 0.4 % (0.0-2.0); EOSINOPHILS # (AUTO) 0.1 K/uL (0-0.4); EOSINOPHILS % (AUTO) 0.9 % (0.0-4.0); HEMATOCRIT 36.5 % (36-52); HEMOGLOBIN 11.7 g/dL (12.0-18.0); LYMPHOCYTES # (AUTO) 2.1 K/uL (2.0-11.5); LYMPHOCYTES % (AUTO) 18.7 % (20.5-51.1); MEAN CORPUSCULAR HEMOGLOBIN 27 pg (27-31); MEAN CORPUSCULAR HGB CONC 32 g/dL (33-37); MEAN CORPUSCULAR VOLUME 85.5 fL (80-94); MONOCYTES # (AUTO) 0.9 K/uL (0.8-1.0); MONOCYTES % (AUTO) 7.8 % (1.7-9.3); NEUTROPHILS # (AUTO) 8.2 K/uL (1.8-7.7); NEUTROPHILS % (AUTO) 72.2 % (42.2-75.2); PLATELET COUNT (AUTO) 196 K/uL (140-450); RED BLOOD CELL COUNT(AUTO) 4.26 MIL/uL (4.20-6.10); RED CELL DISTRIBUTION WIDTH 14.3 % (11.6-13.7); WHITE BLOOD COUNT (AUTO) 11.4 K/uL (4.8-10.8)
[2019-10-27] MEDS: POLYVINYL ALCOHOL 1.4% OP 15 ML SOL OP SCH ×2 (13:00→17:26)
--- NOTE | 2019-10-27 13:02 | NUR ---
R EYE DISCHARGE SWABBED AND TAKEN TO LAB FOR CULTURE
--- NOTE | 2019-10-27 13:40 | NUR ---
DR SCHMITZ CALLEDMOE TO D/C THE NGT AND START PT ON A PUREE DIET. PER DR SCHMITZ, PT WILL NOT HAVE AN EGD. Addendum: 10/27/19 at 1354 by Narcisa Beltran RN NGT REMOVED PER DR CSHMITZ'S ORDER
[2019-10-27 16:00] VITALS: BP 97/49
--- NOTE | 2019-10-27 16:24 | NUR ---
FORM SETTER HELPER assessment/discharge plan High Risk DC Screen Yes Name: Samira Medina Home Relationship: sister Pre-Admission Living Arrangements: Other Other: [facility] ([facility]) Current Name/Tel: [email or web address] Healthcare Decision Maker: Next of Kin Other: Samira Medina Advance Directive No Tentative Discharge Plan Summary: Patient is a 54 year old male admitted for sepsis. Per tableau administrator Kathleen from [facility] patient has been living at their facility for approximately 1 year and they are able to accept him back upon discharge (except cannot take him back if he needs abx iv/s). Kathleen stated their facility can provide transportation for patient upon discharge from [facility]. She told me patient is wheelchair bound and his pcp is Braulio Tucker. Kathleen reported they have an RN available at their facility. She stated patient is not conserved and his sister Samira Medina is his health care decision maker. Patient's casey saw operator from [facility] is . I called and spoke with patient's sister Samira, she confirmed she is patient's health care decision maker. She told me she has already obtained an update on patient's medical condition and will be coming to visit patient tomorrow at hospital. She does not have any questions/concerns at this time. Stone Finisher and/or Corrugator Helper will follow up as needed. Signature: MIGUEL ANGEL Mcpherson Date: Oct 27, 2019
--- NOTE | 2019-10-27 19:10 | NUR ---
RECIEVED PT . AAOX1 , NID -O2 SAT WNL , NO VOMITING OF EPISODE OR PRANK TARRY STOOL AM NOD ENDORSING . IV SITE INTACT AND PATENT . POC DISCUSSED BUT POOR UNDERSTANDING DUE TO MENTAL STATUS . ON SAFETY / FALL PRECAUTUION PROTOCOL . WILL CONT. TO MONITOR.
--- NOTE | 2019-10-27 19:15 | NUR ---
ENDORSED PT TO PRODUCTION INTERNSHIP NURSE IN STABLE CONDITION
[2019-10-27 20:00] VITALS: BP 120/60
[2019-10-27] MEDS: SENNA 8.6 MG TAB PO SCH (20:17)
--- NOTE | 2019-10-27 22:00 | NUR ---
MADE ROUNDS - NO S/SX OF ACUTE DISTRESS - WILL CONT TO MONITOR.
[2019-10-28] VITALS: BP 110/60
--- NOTE | 2019-10-28 | NUR ---
MADE ROUNDS , NO S/SX OF ACUTE DISTRESS NOTED - WILL CONT. TO MONITOR. ON CLINICAL ACADEMIC ALLERGIST.
--- NOTE | 2019-10-28 01:30 | NUR ---
MADE ROUNDS . SLEEPING - HOOK ON O2 SAT 95%
[2019-10-28 04:00] VITALS: BP 101/60
--- NOTE | 2019-10-28 04:00 | NUR ---
MADE ROUNDS , O2 SAT WNL . NO SIGNS OF ACUTE DISTRESS NOTED AT THIS TIME .
[2019-10-28] MEDS: POTASSIUM CHL 30 MEQ/ D5-1/2NS 1,000 ML IV SCH ×2 (04:59→19:40)
[2019-10-28] MEDS: PIPERACILLIN/TAZOBACTAM 3.375 GM in DEXTROSE 5% 50 ML IV SCH ×4 (05:51→23:34)
[2019-10-28] MEDS: METOCLOPRAMIDE 10 MG/2 ML INJ VIAL IVP SCH ×3 (05:52→18:34)
--- NOTE | 2019-10-28 06:36 | NUR ---
SLEEPING.CHST RISE AND FALL EQUALLY.
[2019-10-28] MEDS: ALBUTEROL SULFATE/IPRATROPIU 3 ML SOL IH SCH ×3 (06:59→18:56)
--- NOTE | 2019-10-28 07:10 | NUR ---
ENDORSED TO AM SHIFT. PT - STABLE CONDITION.
--- NOTE | 2019-10-28 07:11 | NUR ---
RECEIVED REPORT FROM RIPRAP WORKER NURSE FOR CONTINUITY OF CARE. PT IN STABLE CONDITION. RESPIRATIONS EVEN AND UNLABORED. IV INTACT AND PATENT. SAFETY MEASURES IN PLACE. BED IN LOW POSITION. BED ALARM ON. CALL LIGHT AT BEDSIDE. WILL CONTINUE TO MONITOR.
[2019-10-28 07:55] LABS: BASOPHILS # (AUTO) 0.1 K/uL (0.00-0.22); BASOPHILS % (AUTO) 0.6 % (0.0-2.0); EOSINOPHILS # (AUTO) 0.4 K/uL (0-0.4); EOSINOPHILS % (AUTO) 3.9 % (0.0-4.0); HEMATOCRIT 35.8 % (36-52); HEMOGLOBIN 11.4 g/dL (12.0-18.0); LYMPHOCYTES # (AUTO) 2.3 K/uL (2.0-11.5); LYMPHOCYTES % (AUTO) 24.3 % (20.5-51.1); MEAN CORPUSCULAR HEMOGLOBIN 28 pg (27-31); MEAN CORPUSCULAR HGB CONC 32 g/dL (33-37); MEAN CORPUSCULAR VOLUME 86.2 fL (80-94); MONOCYTES # (AUTO) 0.8 K/uL (0.8-1.0); MONOCYTES % (AUTO) 8.7 % (1.7-9.3); NEUTROPHILS # (AUTO) 5.9 K/uL (1.8-7.7); NEUTROPHILS % (AUTO) 62.5 % (42.2-75.2); PLATELET COUNT (AUTO) 194 K/uL (140-450); RED BLOOD CELL COUNT(AUTO) 4.15 MIL/uL (4.20-6.10); RED CELL DISTRIBUTION WIDTH 14.4 % (11.6-13.7); WHITE BLOOD COUNT (AUTO) 9.4 K/uL (4.8-10.8)
[2019-10-28 08:00] VITALS: BP 103/63
[2019-10-28 08:07] LABS: ANION GAP 11.8 (8-16); CARBON DIOXIDE 26.6 mmol/L (21-32); CREATININE 0.8 mg/dL (0.7-1.3); POTASSIUM 3.4 mmol/L (3.5-5.1)
[2019-10-28 08:13] LABS: MAGNESIUM 1.9 mg/dL (1.8-2.4); PHOSPHORUS 2.1 mg/dL (2.5-4.9)
[2019-10-28] MEDS: LACTULOSE 20 GM/30 ML UDC PO SCH ×2 (08:32→20:23)
[2019-10-28] MEDS: PANTOPRAZOLE 40 MG INJ VIAL IVP SCH ×2 (08:32→20:23)
[2019-10-28] MEDS: SENNA 8.6 MG TAB PO SCH ×2 (08:32→20:24)
[2019-10-28] MEDS: ONDANSETRON 4 MG/2 ML VIAL IVP SCH ×2 (08:32→20:23)
[2019-10-28] MEDS: ZINC SULF 220 MG CAP PO SCH (08:33)
[2019-10-28] MEDS: POLYVINYL ALCOHOL 1.4% OP 15 ML SOL OP SCH ×3 (08:33→17:02)
[2019-10-28] MEDS: CARBAMIDE PEROXIDE 6.5% OT 15 ML BTL OT SCH ×2 (08:34→20:25)
[2019-10-28] MEDS: LOSARTAN 50 MG TAB PO SCH (08:35)
[2019-10-28] MEDS: POLYETHYLENE GLYCOL 17 GM/PKT PO SCH ×3 (08:35→17:00)
--- NOTE | 2019-10-28 08:45 | NUR ---
GAVE ORDERED DUE MEDICATIONS AT THIS TIME. PT IN STABLE CONDITION. BED IN LOW POSITION. CALL LIGHT AT BEDSIDE. BED ALARM ON. WILL CONTINUE TO MONITOR.
[2019-10-28] MEDS ORDERED: KCL 20 MEQ/WATER INJ PREMIX 200 ML IV PRN (09:10)
--- NOTE | 2019-10-28 10:35 | NUR ---
CLEANED AFTER URINATION. PT TOLERATED WELL. BED IN LOW POSITION. CALL LIGHT AT BEDSIDE. WILL CONTINUE TO MONITOR.
[2019-10-28 12:00] VITALS: BP 109/63
[2019-10-28] MEDS: SODIUM PHOS / POTASSIUM PHOS 1 PKT PDR PO SCH ×2 (12:13→17:02)
--- NOTE | 2019-10-28 12:14 | NUR ---
GAVE ORDERED DUE MEDICATIONS AT THIS TIME. PT TOLERATED WELL. PT IN STABLE CONDITION. BED IN LOW POSITION. CALL LIGHT AT BEDSIDE. BED ALARM ON. WILL CONTINUE TO MONITOR.
[2019-10-28] MEDS ORDERED: Z-GUARD PASTE TP ONE (15:19)
[2019-10-28] MEDS ORDERED: Z-GUARD PASTE TP SCH (15:20)
--- NOTE | 2019-10-28 15:30 | NUR ---
CLEANED AFTER LARGE DIARRHEA. PT TOLERATED WELL. BED IN LOW POSITION. CALL LIGHT AT BEDSIDE. WILL CONTINUE TO MONITOR.
[2019-10-28 16:00] VITALS: BP 122/79
--- NOTE | 2019-10-28 17:26 | NUR ---
PT SLEEPING AT THIS TIME. RESPIRATIONS EVEN AND UNLABORED. BED IN LOW POSITION. CALL LIGHT AT BEDSIDE. BED ALARM ON.
--- NOTE | 2019-10-28 19:01 | NUR ---
RECEIVED PT ON 2L NC WITH SP02 OF 98% AND COARSE BREATH SOUNDS. NO RESPIRATORY DISTRESS NOTED AT THIS TIME; HR 94, RR 16. HHN TX GIVEN ORDERED WITH NO ADVERSE REACTION. WILL CONTINUE TO MONITOR PT.
--- NOTE | 2019-10-28 19:20 | NUR ---
RECIEVED PT. AAOX1 , NID , IV SITES INTACT AND PATENT . WITH LARGE BM TODAY AM SHIFT NURSE REPORTED THE LAST ONE IS SEEMS WATERY . IVF IS W/ KCL INCORPORATED . POC DISCUSSED BUT POOR UNDERSTANDING DUE TO MENTAL STATUS . ON SAFETY / FALL PRECAUTION PROTOCOL . PUREED DIET TOLERATED - NO VOMITING EPISODE. WILL CONT. TO MONITOR.
--- NOTE | 2019-10-28 19:28 | NUR ---
GAVE REPORT TO SPECIAL EDUCATION DIRECTOR NURSE FOR CONTINUITY OF CARE. PT IN STABLE CONDITION.
[2019-10-28 20:00] VITALS: BP 112/76
--- NOTE | 2019-10-28 22:00 | NUR ---
SLEEPING - CHEST RISE AND FALL EQUALLY . WILL CONT. TO MONITOR.
[2019-10-29] VITALS: BP 102/60
--- NOTE | 2019-10-29 | NUR ---
MADE ROUNDS , NO S/SX OF ACUTE DISTRESS NOTED AT THIS TIME. WILL CONT. TO MONITOR - ON MILITARY EDUCATION COORDINATOR.
[2019-10-29 04:00] VITALS: BP 100/60
--- NOTE | 2019-10-29 04:00 | NUR ---
MADE ROUNDS ,RESP. EVEN AND UNLABORED - WILL CONT. TO MONITOR.
[2019-10-29] MEDS: PIPERACILLIN/TAZOBACTAM 3.375 GM in DEXTROSE 5% 50 ML IV SCH ×3 (04:50→17:40)
[2019-10-29] MEDS: METOCLOPRAMIDE 10 MG/2 ML INJ VIAL IVP SCH ×3 (06:00→17:40)
--- NOTE | 2019-10-29 06:52 | NUR ---
MADE ROUNDS . NO COMPLAIN MADE . WILL CONT. TO MONITOR.
--- NOTE | 2019-10-29 07:25 | NUR ---
DR. MAX CALL - MADE NEW ORDER - HE SAID INCREASE IVF TO 50CC/HR.- JENNIFER ROMERO FOR CONT. OF CARE . PT IS W/ STABLE CONDITION. Addendum: 10/29/19 at 0749 by Jenny Turner RN THE ABOVE NURSE'S NOTE IS AN ERROR ENTRY - MALIA
--- NOTE | 2019-10-29 07:30 | NUR ---
RECEIVED REPORT FROM PLANT PATHOLOGY TEACHER NURSE MATTHEW FOR CONTINUITY OF CARE. PT IN STABLE CONDITION. RESPIRATIONS EVEN AND UNLABORED. IV INTACT AND PATENT. SAFETY MEASURES IN PLACE. BED IN LOW POSITION. BED ALARM ON. CALL LIGHT AT BEDSIDE. WILL CONTINUE TO MONITOR.
[2019-10-29 07:47] LABS: BASOPHILS # (AUTO) 0.1 K/uL (0.00-0.22); BASOPHILS % (AUTO) 0.8 % (0.0-2.0); EOSINOPHILS # (AUTO) 0.4 K/uL (0-0.4); HEMATOCRIT 34.2 % (36-52); LYMPHOCYTES # (AUTO) 1.5 K/uL (2.0-11.5); LYMPHOCYTES % (AUTO) 14.4 % (20.5-51.1); MEAN CORPUSCULAR HEMOGLOBIN 28 pg (27-31); MEAN CORPUSCULAR HGB CONC 32 g/dL (33-37); MEAN CORPUSCULAR VOLUME 85.9 fL (80-94); MONOCYTES # (AUTO) 0.4 K/uL (0.8-1.0); MONOCYTES % (AUTO) 4.1 % (1.7-9.3); NEUTROPHILS % (AUTO) 76.7 % (42.2-75.2); PLATELET COUNT (AUTO) 208 K/uL (140-450); RED BLOOD CELL COUNT(AUTO) 3.98 MIL/uL (4.20-6.10); RED CELL DISTRIBUTION WIDTH 14.2 % (11.6-13.7); WHITE BLOOD COUNT (AUTO) 10.5 K/uL (4.8-10.8)
[2019-10-29 08:00] VITALS: BP 152/73
[2019-10-29 08:39] LABS: ANION GAP 14.7 (8-16); CARBON DIOXIDE 25.9 mmol/L (21-32); CREATININE 0.8 mg/dL (0.7-1.3); POTASSIUM 3.6 mmol/L (3.5-5.1)
[2019-10-29] MEDS: ALBUTEROL SULFATE/IPRATROPIU 3 ML SOL IH SCH ×3 (08:40→19:04)
[2019-10-29] MEDS: POLYETHYLENE GLYCOL 17 GM/PKT PO SCH ×3 (09:00→17:00)
--- NOTE | 2019-10-29 09:33 | NUR ---
PT SLEEPING AT THIS TIME. RESPIRATIONS EVEN AND UNLABORED. BED IN LOW POSITION. BED ALARM ON. CALL LIGHT AT BEDSIDE. WILL CONTINUE TO MONITOR.
[2019-10-29] MEDS: SODIUM PHOS / POTASSIUM PHOS 1 PKT PDR PO SCH (10:09)
[2019-10-29] MEDS: LACTULOSE 20 GM/30 ML UDC PO SCH ×2 (10:09→21:02)
[2019-10-29] MEDS: ONDANSETRON 4 MG/2 ML VIAL IVP SCH ×2 (10:09→21:01)
[2019-10-29] MEDS: PANTOPRAZOLE 40 MG INJ VIAL IVP SCH ×2 (10:09→21:01)
[2019-10-29] MEDS: LOSARTAN 50 MG TAB PO SCH (10:10)
[2019-10-29] MEDS: SENNA 8.6 MG TAB PO SCH ×2 (10:10→21:02)
[2019-10-29] MEDS: POLYVINYL ALCOHOL 1.4% OP 15 ML SOL OP SCH ×3 (10:11→17:40)
[2019-10-29] MEDS: CARBAMIDE PEROXIDE 6.5% OT 15 ML BTL OT SCH ×2 (10:11→21:32)
[2019-10-29] MEDS: ZINC SULF 220 MG CAP PO SCH (10:12)
[2019-10-29] MEDS: POTASSIUM CHL 30 MEQ/ D5-1/2NS 1,000 ML IV SCH (10:14)
[2019-10-29] MEDS: ACETAMINOPHEN 325 MG TAB PO PRN ×2 (11:37→18:02)
--- NOTE | 2019-10-29 11:37 | NUR ---
GAVE PRN TYLENOL FOR 101.9 FEVER. WILL CONTINUE TO MONITOR.
[2019-10-29 12:00] VITALS: BP 126/69
--- NOTE | 2019-10-29 13:45 | NUR ---
PT RECEIVING BREATHING TREATMENT AT THIS TIME. WILL CONTINUE TO MONITOR. BED IN LOW POSITION. BED ALARM ON. CALL LIGHT AT BEDSIDE.
[2019-10-29 16:00] VITALS: BP 146/76
--- NOTE | 2019-10-29 18:02 | NUR ---
GAVE PRN TYLENOL FOR 103.2 FEVER. PLACED ICE PACKS. PT IN STABLE CONDITION.
--- NOTE | 2019-10-29 18:30 | NUR ---
US TECH AT BEDSIDE AT THIS TIME. PT IN STABLE CONDITION.
--- NOTE | 2019-10-29 18:45 | NUR ---
RECHECKED TEMP 102.6 WILL CONTINUE TO MONITOR DROP IN FEVER AND ENDORSE TO BUSINESS OFFICE ASSOCIATE NURSE.
--- NOTE | 2019-10-29 19:09 | NUR ---
RECEIVED PT ON 2L NC WITH SP02 OF 95% AND COARSE BREATH SOUNDS. NO RESPIRATORY DISTRESS NOTED AT THIS TIME; HR 95, RR 18. HHN TX GIVEN ORDERED WITH NO ADVERSE REACTION. WILL CONTINUE TO MONITOR PT
--- NOTE | 2019-10-29 19:30 | NUR ---
GAVE REPORT TO LAB AID NURSE HEYDI FOR CONTINUITY OF CARE. PT IN STABLE CONDITION.
--- NOTE | 2019-10-29 19:35 | NUR ---
RECEIVED PT FROM MARISOL PT FOLLOW SIMPLES COMANDS AOX2 NOT FEVER AT THIS TIME ON TELEMETRY ST IV ON LEFT HAND INFUSING WELL NOT DISTRESS NOTED AT THIS TIME INITIAL ASSESSMENT DONE
[2019-10-29 20:00] VITALS: BP 98/50
--- NOTE | 2019-10-29 22:00 | NUR ---
PT SLEEPING NOT DISTRESS NOTED REPOSITIONED ON TELE ST
[2019-10-30] VITALS: BP 129/76
[2019-10-30] MEDS: PIPERACILLIN/TAZOBACTAM 3.375 GM in DEXTROSE 5% 50 ML IV SCH ×5 (00:55→23:19)
[2019-10-30] MEDS: ACETAMINOPHEN 325 MG TAB PO PRN ×4 (00:56→23:48)
--- NOTE | 2019-10-30 01:00 | NUR ---
PT IS ENDORSED TO KARSTEN CHAHAL FOR CONTINUE OF CARE
[2019-10-30 04:00] VITALS: BP 126/68
--- NOTE | 2019-10-30 04:00 | NUR ---
V/S TAKEN STILL TEMP OF 100.7 AND TYLENOL IS NOT DUE YET. COOLING MEASURE APPLIED TO SHARI
[2019-10-30] MEDS: POTASSIUM CHL 30 MEQ/ D5-1/2NS 1,000 ML IV SCH ×2 (05:33→19:06)
[2019-10-30] MEDS: METOCLOPRAMIDE 10 MG/2 ML INJ VIAL IVP SCH ×3 (05:39→17:15)
--- NOTE | 2019-10-30 06:46 | NUR ---
RTESTING QUIETLY, NO DISTRESS NOTED.
[2019-10-30 06:51] LABS: BASOPHILS % (AUTO) 0.3 % (0.0-2.0); EOSINOPHILS # (AUTO) 0.1 K/uL (0-0.4); EOSINOPHILS % (AUTO) 0.8 % (0.0-4.0); HEMATOCRIT 36.6 % (36-52); HEMOGLOBIN 11.9 g/dL (12.0-18.0); LYMPHOCYTES # (AUTO) 0.8 K/uL (2.0-11.5); LYMPHOCYTES % (AUTO) 8.3 % (20.5-51.1); MEAN CORPUSCULAR HEMOGLOBIN 28 pg (27-31); MEAN CORPUSCULAR HGB CONC 33 g/dL (33-37); MEAN CORPUSCULAR VOLUME 84.8 fL (80-94); MONOCYTES # (AUTO) 0.7 K/uL (0.8-1.0); MONOCYTES % (AUTO) 6.6 % (1.7-9.3); NEUTROPHILS # (AUTO) 8.5 K/uL (1.8-7.7); PLATELET COUNT (AUTO) 250 K/uL (140-450); RED BLOOD CELL COUNT(AUTO) 4.32 MIL/uL (4.20-6.10); RED CELL DISTRIBUTION WIDTH 14.3 % (11.6-13.7); WHITE BLOOD COUNT (AUTO) 10.1 K/uL (4.8-10.8)
[2019-10-30] MEDS: ALBUTEROL SULFATE/IPRATROPIU 3 ML SOL IH SCH ×3 (07:10→21:49)
--- NOTE | 2019-10-30 07:15 | NUR ---
RECEIVED REPORT FROM AMPHIBIOUS OPERATIONS OFFICER NURSE FOR CONTINUITY OF CARE. AAOX1. RESPIRATIONS EVEN AND UNLABORED, ON 2L O2 VIA NC. VISIBLE CHEST RISE NOTED. ON TELE MONITORING. IV INTACT AND PATENT. IV IN THE LEFT HAND RUNNING D51/2NS AT 60ML/HR. SAFETY MEASURES IN PLACE. BED IN LOW POSITION. BED ALARM ON. CALL LIGHT AT BEDSIDE. WILL CONTINUE TO MONITOR. SEIZURE AND FALL PRECAUTIONS IN PLACE
[2019-10-30 07:19] LABS: ANION GAP 12.2 (8-16); CARBON DIOXIDE 27.6 mmol/L (21-32); CREATININE 0.9 mg/dL (0.7-1.3); POTASSIUM 3.8 mmol/L (3.5-5.1)
[2019-10-30 08:00] VITALS: BP 128/73
--- NOTE | 2019-10-30 08:10 | NUR ---
CHECKED VITAL SIGNS. TEMPERATURE: 102.6. APPLIED COOLING MEASURES
[2019-10-30] MEDS: PANTOPRAZOLE 40 MG INJ VIAL IVP SCH ×2 (09:07→20:54)
[2019-10-30] MEDS: SENNA 8.6 MG TAB PO SCH ×2 (09:07→20:54)
[2019-10-30] MEDS: ONDANSETRON 4 MG/2 ML VIAL IVP SCH ×2 (09:07→20:55)
[2019-10-30] MEDS: LACTULOSE 20 GM/30 ML UDC PO SCH ×2 (09:08→20:54)
[2019-10-30] MEDS: LOSARTAN 50 MG TAB PO SCH (09:08)
[2019-10-30] MEDS: ZINC SULF 220 MG CAP PO SCH (09:08)
[2019-10-30] MEDS: POLYVINYL ALCOHOL 1.4% OP 15 ML SOL OP SCH ×3 (09:09→16:30)
[2019-10-30] MEDS: POLYETHYLENE GLYCOL 17 GM/PKT PO SCH ×3 (09:09→16:30)
[2019-10-30] MEDS: CARBAMIDE PEROXIDE 6.5% OT 15 ML BTL OT SCH ×2 (09:09→20:56)
--- NOTE | 2019-10-30 09:09 | NUR ---
GIVEN MORNING MEDICATIONS PO CRUSHED AND MIXED WITH APPLESAUCE. PATIENT TOLERATED WELL. GIVEN TYLENOL FOR FEVER 102.1. WILL RECHECK TEMPERATURE
--- NOTE | 2019-10-30 10:20 | NUR ---
RECHECKED TEMPERATURE: 101.8. APPLIED COOLING MEASURES. WILL RECHECK AGAIN. BED IN LOW POSITION. CALL LIGHT IS WITHIN REACH. WILL CONTINUE TO MONITOR
[2019-10-30 12:00] VITALS: BP 148/73
--- NOTE | 2019-10-30 12:06 | NUR ---
HANG ZOSYN VIA IVPB. GIVEN REGLAN VIA IVP. EXPLAINED TO PATIENT MEDS. WILL CONTINUE TO MONITOR
--- NOTE | 2019-10-30 13:15 | NUR ---
GIVEN EYE DROPS EACH EACH. HELD MIRALAX BECAUSE PT HAD DIARRHEA EARLIER TODAY. BED IN LOW POSITION. CALL LIGHT IS WITHIN REACH. WILL CONTINUE TO MONITOR
--- NOTE | 2019-10-30 13:42 | NUR ---
PATIENT IS SLEEPING AT THIS TIME. NO SIGNS OF DISTRESS NOTED. PATIENT OPEN EYES AND RESPONDS WHEN NAME IS CALLED. BED IN LOW POSITION. CALL LIGHT IS WITHIN REACH. WILL CONTINUE TO MONITOR
--- NOTE | 2019-10-30 14:58 | NUR ---
PATIENT IS SLEEPING AT THIS TIME BUT OPEN EYES AND RESPONDS WHEN NAME IS CALLED. NO SIGNS OF DISTRESS NOTED. CALL LIGHT IS WITHIN REACH. BED IN LOW POSITION. WILL CONTINUE TO MONITOR
--- NOTE | 2019-10-30 15:58 | NUR ---
10/30/19 RD INITIAL ASSESSMENT COMPLETED PLEASE REFER TO NUTRITION ASSESSMENT UNDER CARE ACTIVITY FOR ESTIMATED NUTRITIONAL NEEDS. 1. RECOMMEND NPO AND SWALLOW EVALUATION DUE TO COUGHING WHEN EATING AND TAKING MEDICATIONS 2. IF PT PASSES SWALLOW EVALUATION FOLLOW RECOMMENDATIONS MADE BY FIRE EXTINGUISHER TECHNICIAN 3. CONSIDER ENTERAL NUTRITION SUPPORT IF PT DOES NOT PASS SWALLOW EVALUATION 4. RD TO FOLLOW-UP 2-3 DAYS, HIGH RISK JAYDA GUEVARA, RD
[2019-10-30 16:00] VITALS: BP 129/81
--- NOTE | 2019-10-30 16:15 | NUR ---
VITAL SIGNS TAKEN. TEMP 102.5
--- NOTE | 2019-10-30 16:21 | NUR ---
COOLING MEASURES IN PLACE.
--- NOTE | 2019-10-30 16:30 | NUR ---
GIVEN TYLENOL FOR FEVER. GIVEN EYE DROPS. HELD MIRALAX BECAUSE PATIENT HAD 2BM. WILL CONTINUE TO MONITOR. BED IN LOW POSITION. CALL LIGHT IS WITHIN REACH.
--- NOTE | 2019-10-30 17:20 | NUR ---
GIVEN ZOSYN VIA IVPB AND REGLAN VIA IVP. EXPLAINED TO PATIENT MEDS. PATIENT VERBALIZED UNDERSTANDING. BED IN LOW POSITION. CALL LIGHT IS WITHIN REACH. WILL CONTINUE TO MONITOR
--- NOTE | 2019-10-30 17:58 | NUR ---
RECHECKED TEMPERATURE: 101.9. COOLING MEASURES IN PLACE.
--- NOTE | 2019-10-30 18:20 | NUR ---
COOLING MEASURES IN PLACE. EXPLAINED TO PATIENT REASON. PATIENT VERBALIZED UNDERSTANDING.
--- NOTE | 2019-10-30 18:26 | NUR ---
NEMESIO FROM [facility] VISITED THE PATIENT. NEMESIO LEFT HER PHONE NUMBER: [phone]
--- NOTE | 2019-10-30 19:01 | NUR ---
ENDORSED PATIENT TO GREEN END DEPARTMENT SUPERVISOR NURSE FOR CONTINUITY OF CARE. PATIENT IS IN STABLE CONDITION.
--- NOTE | 2019-10-30 19:05 | NUR ---
RECEIVED PATIENT IN STABLE CONDITION FROM AM SHIFT NURSE FOR CONTINUITY OF CARE. PATIENT IS ABLE TO MAKE NEEDS KNOWN. RESPIRATIONS EVEN, UNLABORED. SKIN WARM, DRY TO TOUCH. IV SITE TO RIGHT HAND 20G PATENT/INTACT, INFUSING FLUIDS WELL. COOLING MEASURES IN PLACE FROM AM SHIFT. SEIZURE PRECAUTIONS IN PLACE. NO C/O PAIN. NO S/SX ACUTE DISTRESS. CALL LIGHT WITHIN REACH. WILL CONTINUE TO MONITOR.
[2019-10-30 20:00] VITALS: BP 118/64
--- NOTE | 2019-10-30 21:20 | NUR ---
PATIENT ASLEEP IN BED. DUE MEDS GIVEN. NO C/O PAIN. NO S/SX ACUTE DISTRESS NOTED. COOLING MEASURES IN PLACE. CALL LIGHT WITHIN REACH. WILL CONTINUE TO MONITOR.
--- NOTE | 2019-10-30 23:05 | NUR ---
MADE ROUNDS. PATIENT ASLEEP AND IN STABLE CONDITION. NO C/O PAIN. NO S/SX ACUTE DISTRESS. INCONTINENT CARE PROVIDED WITH TEAM ASSEMBLER AT BEDSIDE. CALL LIGHT WITHIN REACH. WILL CONTINUE TO MONITOR.
[2019-10-31] VITALS (7 sets, daily range): BP systolic 89–110; BP diastolic 49–74
[2019-10-31] MEDS: POTASSIUM CHL 30 MEQ/ D5-1/2NS 1,000 ML IV SCH (00:47)
--- NOTE | 2019-10-31 00:52 | NUR ---
CHECKED PATIENT'S TEMPERATURE AT 102.0, COOLING MEASURES IN PLACE. ADMINISTERED ACETAMINOPHEN ORDERED. TEMPERATURE DECREASED TO 99.3, PATIENT VERBALIZED NO S/SX DISTRESS. NO C/O PAIN. CALL LIGHT WITHIN REACH. WILL CONTINUE TO MONITOR.
--- NOTE | 2019-10-31 01:35 | NUR ---
MADE ROUNDS. PATIENT IS ASLEEP. NO C/O PAIN. NO S/SX ACUTE DISTRESS. CALL LIGHT WITHIN REACH. WILL CONTINUE TO MONITOR.
--- NOTE | 2019-10-31 03:12 | NUR ---
PATIENT IS ASLEEP. NO C/O PAIN. NO S/SX ACUTE DISTRESS. CALL LIGHT WITHIN REACH. WILL CONTINUE TO MONITOR.
[2019-10-31] MEDS ORDERED: KETOROLAC 15 MG/ML VIAL IVP PRN (04:15)
[2019-10-31] MEDS: PIPERACILLIN/TAZOBACTAM 3.375 GM in DEXTROSE 5% 50 ML IV SCH ×3 (05:08→18:00)
[2019-10-31] MEDS ORDERED: KETOROLAC 15 MG/ML VIAL IM SCH (05:09)
[2019-10-31] MEDS: METOCLOPRAMIDE 10 MG/2 ML INJ VIAL IVP SCH ×3 (05:12→18:00)
--- NOTE | 2019-10-31 05:45 | NUR ---
PATIENT HAD A TEMPERATURE OF 102.0, ADMINISTERED ONE TIME DOSE OF KETORALAC. PATIENT'S TEMPERATURE DECREASED TO 98.6, PATIENT REQUESTED TO KEEP COOL TOWEL ON FOREHEAD FOR COMFORT. NO C/O PAIN. CALL LIGHT WITHIN REACH. WILL CONTINUE TO MONITOR.
[2019-10-31] MEDS: ALBUTEROL SULFATE/IPRATROPIU 3 ML SOL IH SCH ×2 (06:27→13:38)
--- NOTE | 2019-10-31 07:22 | NUR ---
ENDORSED PATIENT TO AM SHIFT NURSE IN STABLE CONDITION FOR CONTINUITY OF CARE.
--- NOTE | 2019-10-31 07:23 | NUR ---
RECEIVED PATIENT IN STABLE CONDITION FROM CIVIL PROJECT ENGINEER NURSE FOR CONTINUITY OF CARE. PATIENT IS ABLE TO MAKE NEEDS KNOWN. RESPIRATIONS EVEN, UNLABORED,. ON 2L O2 VIA NC. SKIN WARM, DRY TO TOUCH. IV SITE TO RIGHT HAND 20G PATENT/INTACT, INFUSING D51/2NS AT 60 ML/HR. COOLING MEASURES IN PLACE. SEIZURE PRECAUTIONS IN PLACE. NO C/O PAIN. NO S/SX ACUTE DISTRESS. CALL LIGHT WITHIN REACH. WILL CONTINUE TO MONITOR.
[2019-10-31 07:43] LABS: HEMATOCRIT 33.2 % (36-52); HEMOGLOBIN 10.9 g/dL (12.0-18.0); MEAN CORPUSCULAR HEMOGLOBIN 28 pg (27-31); MEAN CORPUSCULAR HGB CONC 33 g/dL (33-37); MEAN CORPUSCULAR VOLUME 84.9 fL (80-94); PLATELET COUNT (AUTO) 284 K/uL (140-450); RED BLOOD CELL COUNT(AUTO) 3.91 MIL/uL (4.20-6.10); RED CELL DISTRIBUTION WIDTH 14.4 % (11.6-13.7); WHITE BLOOD COUNT (AUTO) 7.7 K/uL (4.8-10.8)
[2019-10-31 07:55] LABS: ANION GAP 10.7 (8-16); CARBON DIOXIDE 26.2 mmol/L (21-32); CREATININE 0.9 mg/dL (0.7-1.3); POTASSIUM 3.9 mmol/L (3.5-5.1)
[2019-10-31] MEDS ORDERED: NACL 0.9% 1,000 ML IV SCH (08:00)
--- NOTE | 2019-10-31 08:00 | NUR ---
VITAL SIGNS TAKEN. BP IS 82/58. DR. STANLEY IS AWARE.
--- NOTE | 2019-10-31 08:09 | NUR ---
DR. PATEL INCREASED THE RATE OF D51/2NS 30 MEQ FROM 60 TO 100 ML/HR.
[2019-10-31 08:10] LABS: MAGNESIUM 1.7 mg/dL (1.8-2.4); PHOSPHORUS 2.3 mg/dL (2.5-4.9)
--- NOTE | 2019-10-31 08:10 | NUR ---
BOLUS WITH NS 1000 ML WIDE OPEN PER ORDER. BP NOW IS 89/70. WILL CONTINUE TO MONITOR. TEMPERATURE IS 98.2
[2019-10-31 08:21] LABS: LYMPHOCYTES % (MANUAL) 17 % (20-46); MONOCYTES % (MANUAL) 7 % (5-12)
--- NOTE | 2019-10-31 08:34 | NUR ---
PATIENT'S BP NOW 103/73. HR IS 91. O2SAT IS 97%. PATIENT DENIES ANY CHEST PAIN OR ANY DISCOMFORT. WILL CONTINUE TO MONITOR
[2019-10-31] MEDS: LOSARTAN 50 MG TAB PO SCH (09:00)
--- NOTE | 2019-10-31 09:00 | NUR ---
BP NO IS 116/44, HR IS 77, O2SAT 97%. WILL CONTINUE TO MONITOR
[2019-10-31] MEDS: ONDANSETRON 4 MG/2 ML VIAL IVP SCH (09:40)
[2019-10-31] MEDS: ZINC SULF 220 MG CAP PO SCH (09:40)
[2019-10-31] MEDS: PANTOPRAZOLE 40 MG INJ VIAL IVP SCH (09:40)
[2019-10-31] MEDS: POLYVINYL ALCOHOL 1.4% OP 15 ML SOL OP SCH ×3 (09:40→17:06)
[2019-10-31] MEDS: CARBAMIDE PEROXIDE 6.5% OT 15 ML BTL OT SCH (09:40)
--- NOTE | 2019-10-31 09:58 | NUR ---
GIVEN MORNING MEDICATIONS CRUSHED AND MIXED WITH APPLESAUCE. PATIENT TOLERATED WELL. GIVEN MAG IVF RATE OF 25 ML/HR. EXPLAINED TO PT MEDS. PATIENT VERBALIZED UNDERSTANDING. HELD COZAAR BECAUSE PATIENT'S BP IS 102/64 OF NOW.
[2019-10-31] MEDS ORDERED: MAG SULF 2000 MG/WATER PREMIX 50 ML IV SCH (10:00)
--- NOTE | 2019-10-31 10:54 | NUR ---
DISCHARGE PLANNING: RECEIVED AN ORDER FOR SNF PLACEMENT FOR IV ANTIBIOTICS X 7 DAYS. MET WITH PATIENT AT THE BEDSIDE TO DISCUSS DC PLAN. HE STATED TO CONTACT JERALD CARBALLO. CONTACTED JERALD AT [phone], REGARDING DC PLAN, IMM AND CHOICE OF VENDOR LETTERS. SHE STATED SHE WILL BE IN THE HOSPITAL TODAY. I INFORMED HER TO HAVE THE NURSE CALL ME ONCE SHE IS IN THE BUILDING. Addendum: 10/31/19 at 1150 by Boubacar Hughes CM RECEIVED A CALL FROM MAURICIO LEVY DIRECTOR AT [facility], REQUESTING UPDATE ON THIS PATIENT. INFORMATION PROVIDED. Addendum: 10/31/19 at 1610 by Boubacar Hughes CM PER [facility] ARE ABLE TO ACCEPT THE PATIENT AND PATIENT WILL GO TO ROOM [address] UND[address] KELLY. PER NING THEY ARE NOT ABLE TO HELP WITH TRANSPORTATION. CONTACTED PATIENT'S SISTER BOUBACAR CARBALLO, SHE SAID SHE IS NOT ABLE TO PAY FOR TRANSPORT. CONTACTED [facility], PER JOSE HOSPICE CASE MANAGER WILL BE AT 1830. PRIMARY RN AND DR. STANLEY MADE AWARE. Addendum: 10/31/19 at 1630 by Boubacar Hughes CM JOAQUIN FUEL RETROFITTING TECHNICIAN AT [facility], MAURICIO HUTCHINS OF [facility] MADE AWARE.
--- NOTE | 2019-10-31 12:23 | NUR ---
GIVEN ZOSYN VIA IVPB. GIVEN REGLAN VIA IVP. GIVEN ARTIFICIAL TEARS BOTH EYES. EXPLAINED TO PATIENT MEDS. PATIENT VERBALIZED UNDERSTANDING. BED IN LOW POSITION. CALL LIGHT IS WITHIN REACH. WILL CONTINUE TO MONITOR
--- NOTE | 2019-10-31 12:56 | NUR ---
BOLUS PATIENT BECAUSE BP IS TRENDING DOWN AGAIN. DR. STANLEY IS AWARE. FAMILY AT BEDSIDE. BED IN LOW POSITION. CALL LIGHT IS WITHIN REACH.
--- NOTE | 2019-10-31 13:20 | NUR ---
CALLED CASE MANAGEMENT BECAUSE PER PATIENT'S SISTER SHE NEEDS TO SIGN SOME PAPERWORK. ARIS ALEGRIA IS AWARE
--- NOTE | 2019-10-31 13:52 | NUR ---
*S.T. Bedside swallow eval completed* See report. Pt presents w/ adequate oropharyngeal swallow function for his baseline diet textures, without overt s/s aspiration. Pt is unable to feed self and requires 1:1 feeder w/ aspiration precautions and assistance w/ repositioning for optimal P.O. intake. Recommend: 1) Advance to mechanical soft chopped diet, thin liquids okay. Straws okay. 2) P.O. meds okay whole, one at a time. 3) 1:1 feeder to assist w/ repositioning and aspiration precautions. Pt appears to be functioning at his reported baseline. No further swallow tx indicated at this time. DC to [facility]. Endorsed to TIRSO Phelan. Time [id number]
[2019-10-31] MEDS ORDERED: SODIUM PHOSPHATE 15 MMOLE in NACL 0.9% 250 ML IV SCH (14:00)
--- NOTE | 2019-10-31 14:02 | NUR ---
RECHECKED TEMPERATURE: 99.2. STILL PUT COOLING MEASURES IN PLACE. FAMILY AT BEDSIDE
--- NOTE | 2019-10-31 14:55 | NUR ---
HANG SODIUM PHOSPHATE IVPB. EXPLAINED TO PATIENT AND FAMILY MED. BED IN LOW POSITION. CALL LIGHT IS WITHIN REACH. WILL CONTINUE TO MONITOR
--- NOTE | 2019-10-31 14:58 | NUR ---
PLANT PROTECTION SUPERINTENDENT, BOUBACAR, IS SPEAKING WITH THE PATIENT'S FAMILY
[2019-10-31] MEDS ORDERED: POLY17PD46 PO (15:13)
[2019-10-31] MEDS ORDERED: SENN-74 PO (15:13)
[2019-10-31] MEDS ORDERED: ZOS3.375I IV (15:13)
[2019-10-31] MEDS ORDERED: MAGN1.753 PO (15:46)
[2019-10-31] MEDS ORDERED: ASCO1CAP75 PO (16:00)
--- NOTE | 2019-10-31 16:10 | NUR ---
PER CASE MANAGEMENT, PATIENT IS BEING TRANSFERRED TO [facility] TO BED 51-A 1830 TONIGHT. [facility]. CHARGE NURSE IS AWARE. WILL NOTIFY FAMILY
--- NOTE | 2019-10-31 17:07 | NUR ---
GIVEN ARTIFICIAL TEARS BOTH EYES. EXPLAINED PT MED. WILL CONTINUE TO MONITOR
--- NOTE | 2019-10-31 17:47 | NUR ---
GAVE REPORT TO TIRSO VAZQUEZ AT THE [facility]. SHE IS AWARE ABOUT PATIENT BP,TEMPERATURE, TAND HAT HE IS GOING WITH THE IV AND NASAL CANNULA FOR OXYGENATION. PATIENT IS PRECRIBED WITH IV ANTIBIOTIC PER MD. DR. KLELY WILL RECEIVE PATIENT AT [facility].
--- NOTE | 2019-10-31 18:00 | NUR ---
GIVEN REGLAN IVP AND ZOSYN VIA IVPB. EXPLAINED TO PATIENT MED. WILL CONTINUE TO MONITOR. BED IN LOW POSITION. CALL LIGHT IS WITHIN REACH
[2019-10-31] MEDS: ACETAMINOPHEN 325 MG TAB PO PRN (18:03)
--- NOTE | 2019-10-31 18:03 | NUR ---
GIVEN TYLENOL PO MIXED WITH APPLESAUCE FOR TEMPERATURE 100.5. WILL RECHECK BP. EXPLAINED TO PT. MED. PATIENT VERBALIZED UNDERSTANDING. WILL CONTINUE TO MONITOR. BED IN LOW POSITION. CALL LIGHT IS WITHIN REACH.
--- NOTE | 2019-10-31 19:10 | NUR ---
PATIENT LEFT WITH 2 TRANSPORT MEMBERS VIA [facility] FOR [facility]. NO C/O PAIN. NO S/SX ACUTE DISTRESS. O2 2L VIA NC. LEFT WITH IV INTACT/PATENT. LEFT WITH DISCHARGE PAPERS. TELE MONITOR REMOVED. ALL ARM BANDS REMOVED. PATIENT LEFT IN STABLE CONDITION.
== END 2019-10-31 20:16 | DRG 871 ==
LOC: MED 07:10 → MTU 10:49
PROVIDERS: ADMIT General Practice; ATTEND General Practice
DX: A41.9 Sepsis, unspecified organism (principal); J69.0 Pneumonitis due to inhalation of food and vomit; G80.0 Spastic quadriplegic cerebral palsy; E87.0 Hyperosmolality and hypernatremia; D62 Acute posthemorrhagic anemia; K92.0 Hematemesis; E83.42 Hypomagnesemia; H54.8 Legal blindness, as defined in USA; I10 Essential (primary) hypertension; E87.6 Hypokalemia; K56.41 Fecal impaction; Z96.642 Presence of left artificial hip joint; R31.9 Hematuria, unspecified; R65.20 Severe sepsis without septic shock; E87.8 Other disorders of electrolyte and fluid balance, not elsewhere classified; N20.0 Calculus of kidney; N21.0 Calculus in bladder; Z88.1 Allergy status to other antibiotic agents; Z88.8 Allergy status to other drugs, medicaments and biological substances; Z91.018 Allergy to other foods; Z87.820 Personal history of traumatic brain injury; Z93.1 Gastrostomy status; Z79.899 Other long term (current) drug therapy; Z90.49 Acquired absence of other specified parts of digestive tract
CPT/HCPCS: 36415; 71045; 74018; 74022; 76770; 80048; 80053; 81001; 82272; 83036; 83605; 83735; 83880; 84100; 84436; 84443; 85025; 85610; 85730; 86886; 86900; 86901; 87040; 87070; 87075; 87081; 87086; 87205; 87804; 92610; 93005; 94640; 96361; 96365; 96366; 96367; 96375; 99291; C9113; J1885; J2405; J2543; J2765; J3370; J3475; J3480; J7030; J7060; J7620; Q0092

== ENCOUNTER 2019-11-03 12:00 | Inpatient (IN) | payer OTHER, MEDICAID ==
[~2019-11-03] VITALS: Ht 177.8 cm; Wt 77.1 kg
[~2019-11-03 12:00] MED LIST changes: +ASCO1CAP75 PO; -ASCO500T45 PO; -CALC-784 PO; +CARB15DR5 OT; +CARB15DR89 OP; -INUL1CTB PO; -LEVO750T2 PO; +LOSA50TA66 PO; +MAGN1.753 PO; +METO-485 PO; +POLY17PD46 PO; +PSYL0.5227 PO; -PSYL660P5 PO; +RANI150C PO; +SENN-74 PO; +ZOS3.375I IV
--- NOTE | 2019-11-03 12:00 | NUR ---
PATIENT TO BED 6 BY EMS AT THIS TIME.
[2019-11-03 12:03] VITALS: BP 94/54
[2019-11-03] MEDS ORDERED: NACL 0.9% 500 ML IV SCH (12:08)
--- NOTE | 2019-11-03 13:00 | NUR ---
54 YO MALE BIBA FOR RECURRENT FEVERS SINCE YESTERDAY. PT HAD A HIGH OF 103.2 YESTERDAY. UPON ARRIVAL, TEMP IS 98.5. PT IS A/O X2 TO PERSON AND PLACE. LABS DRAWN AND TAKEN TO THE LAB. URINE OBTAINED FROM IN AND OUT CATH. PT IS RESTING COMFORTABLY WITH SISTER AT BEDSIDE.
[2019-11-03 13:04] LABS: BASOPHILS % (AUTO) 0.4 % (0.0-2.0); EOSINOPHILS % (AUTO) 0.4 % (0.0-4.0); HEMATOCRIT 32.8 % (36-52); HEMOGLOBIN 10.6 g/dL (12.0-18.0); LYMPHOCYTES # (AUTO) 0.9 K/uL (2.0-11.5); LYMPHOCYTES % (AUTO) 17.9 % (20.5-51.1); MEAN CORPUSCULAR HEMOGLOBIN 27 pg (27-31); MEAN CORPUSCULAR HGB CONC 32 g/dL (33-37); MEAN CORPUSCULAR VOLUME 84.7 fL (80-94); MONOCYTES # (AUTO) 0.5 K/uL (0.8-1.0); MONOCYTES % (AUTO) 9.1 % (1.7-9.3); NEUTROPHILS # (AUTO) 3.7 K/uL (1.8-7.7); NEUTROPHILS % (AUTO) 72.2 % (42.2-75.2); PLATELET COUNT (AUTO) 286 K/uL (140-450); RED BLOOD CELL COUNT(AUTO) 3.87 MIL/uL (4.20-6.10); RED CELL DISTRIBUTION WIDTH 14.5 % (11.6-13.7); WHITE BLOOD COUNT (AUTO) 5.1 K/uL (4.8-10.8)
[2019-11-03 13:05] LABS: APPEARANCE,URINE CLEAR (CLEAR); BILIRUBIN,URINE NEGATIVE (NEGATIVE); BLOOD, URINE 3+ (NEGATIVE); COLOR,URINE YELLOW (YELLOW); LEUKOCYTE ESTERASE ,URINE NEGATIVE (NEGATIVE); NITRITE, URINE NEGATIVE (NEGATIVE); UGLUCOSE NEGATIVE (NEGATIVE)
[2019-11-03 13:22] LABS: ANION GAP 9.6 (8-16); CARBON DIOXIDE 27.8 mmol/L (21-32); CREATININE 0.9 mg/dL (0.6-1.3); POTASSIUM 3.4 mmol/L (3.5-5.1); TOTAL BILIRUBIN 0.2 mg/dL (0.0-1.0)
[2019-11-03 13:27] LABS: PROTHROMBIN TIME 9.3 secs (10.8-13.4)
[2019-11-03 13:37] LABS: WBC,URINE 0-5 /HPF (0-5)
[2019-11-03] MEDS ORDERED: ALBUTEROL SULFATE/IPRATROPIU 3 ML SOL IH ONE (13:45)
--- NOTE | 2019-11-03 13:48 | NUR ---
flu swab obtained.
--- NOTE | 2019-11-03 14:14 | NUR ---
NEW IV STARTED IN RIGHT FOOT 20G NEEDLE.
--- NOTE | 2019-11-03 14:20 | NUR ---
BREATHING TREATMENT IN PROCESS
[2019-11-03] MEDS ORDERED: DOCUSATE SODIUM 100 MG GELCAP PO PRN (14:25)
[2019-11-03] MEDS ORDERED: ONDANSETRON 4 MG/2 ML VIAL IM/IVP PRN (14:25)
[2019-11-03] MEDS ORDERED: MORPHINE SULFATE 2 MG/ML SYR IVP PRN (14:25)
[2019-11-03] MEDS ORDERED: HYDROcodone/APAP 5/325 MG 1 TAB TAB PO PRN (14:25)
[2019-11-03] MEDS ORDERED: ACETAMINOPHEN 325 MG TAB PO PRN (14:25)
[2019-11-03] MEDS ORDERED: PIPERACILLIN/TAZOBACTAM 3.375 GM in DEXTROSE 5% 50 ML IV ONE (14:35)
[2019-11-03] MEDS ORDERED: PIPERACILLIN/TAZOBACTAM 3.375 GM VIAL IV ONE (14:38)
[2019-11-03 15:10] LABS: MAGNESIUM 1.9 mg/dL (1.8-2.4)
[2019-11-03] MEDS: NACL 0.9% 1,000 ML IV SCH (15:15)
[2019-11-03] MEDS ORDERED: ALBUTEROL SULFATE/IPRATROPIU 3 ML SOL IH PRN (15:35)
[2019-11-03] MEDS ORDERED: POTASSIUM CHLORIDE 20% 40 MEQ/15 ML UDC NG SCH (16:00)
--- NOTE | 2019-11-03 16:02 | NUR ---
RD RECOMMENDATIONS FOR TUBE FEEDING WERE GIVEN TO DR. STANLEY FOR VITAL 1.2 AF @ 60 ML/HR. START AT 20 ML/HR AND INCREASE GRADUALLY WITH FREE WATER FLUSH OF 140 ML Q6H.
[2019-11-03 16:20] VITALS: BP 114/53
[2019-11-03] MEDS ORDERED: BISACODYL 5 MG TABEC NG PRN (16:20)
[2019-11-03] MEDS ORDERED: MAGNESIUM CITRATE 300 ML BTL PO PRN (16:20)
[2019-11-03] MEDS ORDERED: MAGNESIUM HYDROXIDE 2400 MG/30 ML UDC NG PRN (16:20)
[2019-11-03] MEDS ORDERED: POLYETHYLENE GLYCOL 17 GM/PKT NG PRN (16:20)
[2019-11-03] MEDS ORDERED: SENNA 8.6 MG TAB NG PRN (16:20)
--- NOTE | 2019-11-03 16:20 | NUR ---
RECEIVED PT FROM BULK SAUSAGE CASING TIER OFFTIRSO CLAY. PT IN BED. BLIND. AAOX2. ABLE TO COMMUNICATE AND FOLLOW SIMPLE COMMANDS. IV CATH TO RIGHT FOOT, 22G, FLUSHED, DRESSING INTACT AND ASYMPTOMATIC AT IV SITES. PT ON 3L O2 NC. NO S/S OF DISTRESS, LUNG SOUNDS CLEAR. TACHYPNEA. ST ON MONITOR. MRSA NARES SWAB DONE. TEMPORAL TEMP 99.5F. ABDOMEN SOFT W/ ACTIVE BOWEL SOUNDS. SKIN INTACT, WARM AND DRY TO TOUCH. NO EDEMA NOTED. BMX1, PASTY BROWN STOOL. PT HAS CLEANED, CHUX CHANGED. HOB ELEVATED TO 30 DEGREES, SAFETY PRECAUTION IN PLACE, WILL CONTINUE TO MONITOR.
--- NOTE | 2019-11-03 16:22 | NUR ---
Patient will be admitted to care of DR GARCIA. Admited to ICU. Will go to room 6. Belongings list completed. Report to TIRSO ALMENDAREZ.
[2019-11-03] MEDS ORDERED: VANCOMYCIN PER PHARMACY MC PRN (16:55)
--- NOTE | 2019-11-03 16:55 | NUR ---
WALLS CATHETER PLACED AND SECURED
--- NOTE | 2019-11-03 17:05 | NUR ---
PATIENT REFUSED NGT, STATED HE IS EATING NORMAL, WHAT IS THE REASON TO USE NGT, RISK AND BENEFIT OF USING NGT EXPLAINED TO PATIENT, PATIENT STILL REFUSED AT THIS TIME, DR. STANLEY MADE AWARE.
--- NOTE | 2019-11-03 17:20 | NUR ---
PICC LINE CONSENT OBTAINED FROM PATIENT'S SISTER BOUBACAR RODRIGUEZ, PROCEDURE EXPLAINED AND VERBALIZED UNDERSTANDING.
--- NOTE | 2019-11-03 17:35 | NUR ---
ACCORDING TO PT'S SISTER, PT IS ON CHOPPED DIET, ABLE TO EAT INDEPENDENTLY WITH SPECIAL SPOON.
[2019-11-03 18:00] VITALS: BP 109/75
[2019-11-03] MEDS ORDERED: AZITHROMYCIN 500 MG in DEXTROSE 5% 250 ML IV SCH (18:00)
[2019-11-03] MEDS: VANCOMYCIN 1,000 MG in DEXTROSE 5% 250 ML IV SCH (18:08)
--- NOTE | 2019-11-03 18:10 | NUR ---
PT REFUSED NGT. MADE DR STANLEY AWARE.
[2019-11-03] MEDS: ALBUTEROL SULFATE/IPRATROPIU 3 ML SOL IH SCH (19:11)
--- NOTE | 2019-11-03 19:30 | NUR ---
RECEIVED PT REPORT FROM DAYSILFT NURSE FOR CONTINUITY OF CARE. CURRENTLY RESTING IN BED WITH EYES OPEN. RESPONDS VERBALLY. AFEBRILE @ 98.4, TEMPORAL. A/O X3, WITH SLOW, GARBLED, SPEECH. DENIES PAIN, FLACC 0. PERRL. UNABLE TO TRACK. STATES THAT HE HAS DIFFICULTY SEEING. ST ON MONITOR 101-110BPM. + S1/S2 UPON AUSCULTATION. O2 @ 3LPM VIA NC. SPO2 @ 94%. RHONCHI THROUGHOUT UPON INSPIRATION/ EXPIRATION. BOWEL SOUNDS ACTIVE X4. ABDOMEN SOFT, NON-TENDER, AND NON-DISTENDED. INDWELLING URINARY CATH IN PLACE DRAINING CLEAR, STRAW-COLORED, URINE TO GRAVITY. BLE WITH +DECORTICATE POSTURING, +MUSCLE ATROPHY. 22G IV TO RT FOOT WITH SALINE-LOCK IN PLACE INFUSING 0.9% NS @ 60ML/HR. SKIN WARM, DRY, AND INTACT. SAFETY PRECAUTIONS IN PLACE. BED LOW AND LOCKED. CALL LIGHT WITHIN REACH. WILL CONTINUE TO MONITOR FOR CHANGES.
--- NOTE | 2019-11-03 19:45 | NUR ---
PICC LINE NURSE @ BEDSIDE AT THIS TIME. MIDLINE INSERTED TO XIOMY WITHOUT INCIDENT.
[2019-11-03 20:00] VITALS: BP 141/86
[2019-11-03] MEDS ORDERED: OSELTAMIVIR PHOSPHATE 6 MG/ML SUSPENSION PO SCH (21:00)
[2019-11-03] MEDS: OSELTAMIVIR PHOSPHATE 6 MG/ML SUSPENSION NG SCH (21:03)
[2019-11-03 22:00] VITALS: BP 128/77
--- NOTE | 2019-11-03 22:00 | NUR ---
ORAL CARE PROVIDED. JOSÉ ANTONIO-CARE PROVIDED. REPOSITIONED. PT RESTING COMFORTABLY IN BED. WILL CONTINUE TO MONITOR.
[2019-11-03] MEDS: PIPERACILLIN/TAZOBACTAM 3.375 GM in DEXTROSE 5% 50 ML IV SCH (23:28)
[2019-11-04] VITALS (12 sets, daily range): BP systolic 87–126; BP diastolic 51–66
--- NOTE | 2019-11-04 | NUR ---
PT RESTING COMFORTABLY IN BED. VSS. WILL CONTINUE TO MONITOR FOR CHANGES.
--- NOTE | 2019-11-04 02:00 | NUR ---
JOSÉ ANTONIO CARE PROVIDED. DENIES PAIN @ THIS TIME. SAFETY PRECAUTIONS REMAIN IN PLACE. BED LOW AND LOCKED. WILL CONTINUE TO MONITOR.
--- NOTE | 2019-11-04 04:00 | NUR ---
PT RESTING IN BED. REPOSITIONED WITH PRESSURE AREAS OFFLOADED. DENIES PAIN UPON QUESTIONING. SAFETY PRECAUTIONS IN PLACE WITH BED LOW AND LOCKED. CALL LIGHT WITHIN REACH. WILL CONTINUE TO MONITOR.
--- NOTE | 2019-11-04 05:20 | NUR ---
RASH OBSERVED TO LEFT FOREARM/HAND AND SCATTERED THROUGHOUT BILAT CHEST AREA. PT SEEN AND EXAMINED BY DR PATEL; ORDERED TO ADMIN BENADRYL PRIOR TO GIVING 0600 VANCO ANTIBIOTIC AND CONTINUE WITH CURRENT ABX REGIMEN ORDERED. NEW ORDERS IMPLEMENTED. WILL FOLLOW UP
[2019-11-04] MEDS: PIPERACILLIN/TAZOBACTAM 3.375 GM in DEXTROSE 5% 50 ML IV SCH ×3 (05:45→17:38)
[2019-11-04] MEDS ORDERED: diphenhydrAMINE 50 MG/ML VIAL IVP SCH ×2 (06:00→17:10)
--- NOTE | 2019-11-04 06:00 | NUR ---
S/P BENEDRYL ADMINISTRATION. PT STATES HE "FEELS BETTER." RASH SLIGHTLY DECREASED IN SEVERITY. SPO2 @ 98% ON 3 LPM VIA NC. BED LOW AND LOCKED WITH SIDE RAILS UP X2. WILL CONTINUE TO MONITOR.
[2019-11-04] MEDS: VANCOMYCIN 1,000 MG in DEXTROSE 5% 250 ML IV SCH ×2 (06:09→18:32)
[2019-11-04] MEDS: ALBUTEROL SULFATE/IPRATROPIU 3 ML SOL IH SCH ×3 (06:59→20:15)
[2019-11-04] MEDS: NACL 0.9% 1,000 ML IV SCH ×2 (07:04→23:44)
--- NOTE | 2019-11-04 07:30 | NUR ---
RECEIVED PT REPORT FROM PM SHIFT NURSE . BEDSIDE MONITOR SHOWS SR. PT RESTING IN BED WITH EYES CLOSED. RESPONDS VERBALLY. + S1/S2 UPON AUSCULTATION. O2 @ 6LPM VIA MASK. SPO2 @ 94%. TACHYPNEA 30 S. RHONCHI THROUGHOUT UPON INSPIRATION/ EXPIRATION. PT HAS MIDLINE TO RIGHT UPPER ARM RUNNING 0.9 NS AT 60 CC/HR. BOWEL SOUNDS ACTIVE X4. ABDOMEN SOFT, NON-TENDER, NON-DISTENDED. URINARY CATH IN PLACE DRAINING CLEAR, YELLOW-COLORED URINE NOTED. BLE CONTRACTED WITH MUSCLE ATROPHY. 22G IV TO RT FOOT WITH SALINE-LOCK IN PLACE . SKIN WARM, DRY, AND INTACT. SAFETY PRECAUTIONS IN PLACE. BED LOW AND LOCKED. CALL LIGHT WITHIN REACH. WILL CONTINUE TO MONITOR .
--- NOTE | 2019-11-04 07:30 | NUR ---
ENDORSED PT TO DAYSHIFT FOR CONTINUITY OF CARE. VSS.
--- NOTE | 2019-11-04 07:35 | NUR ---
SCATTERED RASHES NOTED TO LEFT ARM AND HAND. PER PM SHIFT NURSE ,IT HAPPENED AFTER GIVING VANCO ABX .
[2019-11-04 08:27] LABS: BASOPHILS % (AUTO) 0.5 % (0.0-2.0); EOSINOPHILS % (AUTO) 0.6 % (0.0-4.0); HEMATOCRIT 32.4 % (36-52); HEMOGLOBIN 10.7 g/dL (12.0-18.0); LYMPHOCYTES # (AUTO) 0.9 K/uL (2.0-11.5); LYMPHOCYTES % (AUTO) 14.3 % (20.5-51.1); MEAN CORPUSCULAR HEMOGLOBIN 28 pg (27-31); MEAN CORPUSCULAR HGB CONC 33 g/dL (33-37); MEAN CORPUSCULAR VOLUME 83.6 fL (80-94); MONOCYTES # (AUTO) 0.6 K/uL (0.8-1.0); MONOCYTES % (AUTO) 9.6 % (1.7-9.3); NEUTROPHILS # (AUTO) 4.8 K/uL (1.8-7.7); PLATELET COUNT (AUTO) 321 K/uL (140-450); RED BLOOD CELL COUNT(AUTO) 3.88 MIL/uL (4.20-6.10); RED CELL DISTRIBUTION WIDTH 14.4 % (11.6-13.7); WHITE BLOOD COUNT (AUTO) 6.4 K/uL (4.8-10.8)
[2019-11-04 08:46] LABS: ANION GAP 9.4 (8-16); CARBON DIOXIDE 26.1 mmol/L (21-32); CREATININE 0.8 mg/dL (0.6-1.3); POTASSIUM 3.5 mmol/L (3.5-5.1)
[2019-11-04 08:52] LABS: MAGNESIUM 1.7 mg/dL (1.8-2.4); PHOSPHORUS 2.1 mg/dL (2.5-4.9)
[2019-11-04] MEDS ORDERED: AZITHROMYCIN 250 MG in DEXTROSE 5% 250 ML IV SCH (09:00)
--- NOTE | 2019-11-04 09:00 | NUR ---
GAVE DUE MEDS WITH APPLE SAUCE, PT TOLERATED WELL. NO CHOKE OR ASPIRATION NOTED.
[2019-11-04 09:06] LABS: CHOL/HDL RATIO 4.3 (1-4.5)
[2019-11-04] MEDS: OSELTAMIVIR PHOSPHATE 6 MG/ML SUSPENSION NG SCH ×2 (09:18→20:00)
[2019-11-04] MEDS: ZINC SULF 220 MG CAP NG SCH (09:19)
[2019-11-04] MEDS: MAG SULF 2000 MG/WATER PREMIX 100 ML IV SCH ×2 (10:15→12:03)
--- NOTE | 2019-11-04 10:15 | NUR ---
PATIENT HAS BEEN SCREENED AND CATEGORIZED HIGH NUTRITION RISK. PATIENT WILL BE SEEN WITHIN 1-2 DAYS OF ADMISSION. 11/04/19 - 11/05/19 NAI ELIAS MBA, RD
--- NOTE | 2019-11-04 11:05 | NUR ---
PT RESTING IN BED, ASKED HOW HE IS DOING, PT STATED HE IS FINE. BEDSIDE MONITOR SHOWS O2 SATS 94-95% AND RR 29-30S. ON O2 MASK 6L/MIN.
--- NOTE | 2019-11-04 12:00 | NUR ---
PT'S AROUSABLE TO VOICE, ABLE TO ANSWER QUESTIONS. SISTER AT BEDSIDE.
--- NOTE | 2019-11-04 14:34 | NUR ---
11/04/2019 RD INITIAL ASSESSMENT COMPLETED PLEASE REFER TO NUTRITION ASSESSMENT UNDER CARE ACTIVITY FOR ESTIMATED NUTRITIONAL NEEDS. RD RECOMMENDATIONS: 1. RECOMMEND CONTINUE NPO DIET. 2. IF PATIENT/FAMILY CHANGED THEIR MIND AND ACCEPTED TF; RECOMMEND VITAL AF @50MLS/HR ([id number], 90G PROTEIN). START@30 AND ADVANCE TOLERATED BY 10MLS/HR Q8HRS TO REACH GOAL RATE OF 50MLS/HR. 3. IF MEDICALLY CLEARED FOR PO DIET; RECOMMEND SWALLOW EVALUATION AND PROVIDE MEALS ACCORDINGLY. 4. F/U 2-3 DAYS; HIGH RISK NAI ELIAS MBA, RD
--- NOTE | 2019-11-04 15:10 | NUR ---
PT'S BROTHER AND SISTER IN LAW CAME IN TO CHECK PT. PER BROTHER, PT ATE CHOPPED FOOD WHEN HE WAS IN [facility].
--- NOTE | 2019-11-04 15:40 | NUR ---
PT SLEEPING IN BED, ABLE TO ANSWER QUESTIONS. BEDSIDE MONITOR SHOWS O2 SATS 97%, AND RR 26-27. STILL ON O2 MASK @ 6L/MIN.
--- NOTE | 2019-11-04 17:00 | NUR ---
PT O2 SATS 98-99% AND RR 23-24, TURNED AND REPOSITIONED PT. BED BATH GIVEN. PT HAS MODERATE AMOUNT OF LOOSE YELLOWISH BM, CLEANED PT, PT TOLERATED WELL.
--- NOTE | 2019-11-04 18:30 | NUR ---
DR. MANUEL CAME IN , UPDATED PT'S SITUATION. NOTIFIED MAR GARCIA PT SBP LESS THAN 90, DR. MANUEL VERBALLY GAVE ORDER 0.9 % NS 1 L BOLUS. CARRIED OUT.
[2019-11-04] MEDS ORDERED: SODIUM PHOSPHATE 15 MMOLE in NACL 0.9% 250 ML IV SCH (19:20)
[2019-11-04] MEDS ORDERED: NACL 0.9% 1,000 ML IV ONE (19:30)
--- NOTE | 2019-11-04 19:30 | NUR ---
RECEIVED PT REPORT FROM DAYSMNFT NURSE. CURRENTLY RESTING IN BED WITH EYES OPEN. RESPONDS VERBALLY. AFEBRILE @ 98.7, TEMPORAL. A/O X3, WITH SLOW, GARBLED, SPEECH. DENIES PAIN, FLACC 0. PERRL. NO JVD. NSR ON MONITOR. + S1/S2 UPON AUSCULTATION. O2 @ 5LPM VIA SIMPLE MASK. SPO2 @ 98%. NO SOB NOTED. RHONCHI THROUGHOUT UPON INSPIRATION/ EXPIRATION. BOWEL SOUNDS ACTIVE X4. ABDOMEN SOFT, NON-TENDER, AND NON-DISTENDED. INDWELLING URINARY CATH IN PLACE DRAINING CLEAR, STRAW-COLORED, URINE TO GRAVITY. BLE WITH +DECORTICATE POSTURING, +MUSCLE ATROPHY. 22G IV TO RT FOOT WITH SALINE-LOCK IN PLACE, PATENT. XIOMY MIDLINE INFUSING 0.9% NS @ 60ML/HR, VANCO @ 165 ML/HR, AND 0.9 NS BOLUS @ 1000 ML/HR D/T HYPOTENSIVE EPISODE DURING AM SHIFT. SKIN WARM AND DRY. RASH NOTED TO BUE. SAFETY PRECAUTIONS IN PLACE. BED LOW AND LOCKED. CALL LIGHT WITHIN REACH. WILL CONTINUE TO MONITOR FOR CHANGES.
--- NOTE | 2019-11-04 22:40 | NUR ---
DR SHUKLA AT BEDSIDE AT THIS TIME. UPDATED ON PT STATUS. INFORMED OF PT RASH TO CHEST/BUE. NEW ORDER TO SLOW RATE OF VANCO ADMINISTRATION. WILL FOLLOW UP.
[2019-11-05] VITALS (11 sets, daily range): BP systolic 97–118; BP diastolic 54–73
--- NOTE | 2019-11-05 | NUR ---
FLACC 0. HOB @ 30 DEGREES. ORAL CARE PROVIDED. SAFETY PRECAUTIONS REMAIN IN PLACE. BED LOW AND LOCKED. CALL LIGHT WITHIN REACH. WILL CONTINUE TO MONITOR.
[2019-11-05] MEDS: PIPERACILLIN/TAZOBACTAM 3.375 GM in DEXTROSE 5% 50 ML IV SCH ×4 (00:07→17:46)
[2019-11-05 05:04] LABS: BASOPHILS % (AUTO) 0.6 % (0.0-2.0); EOSINOPHILS # (AUTO) 0.5 K/uL (0-0.4); EOSINOPHILS % (AUTO) 8.4 % (0.0-4.0); HEMATOCRIT 32.6 % (36-52); HEMOGLOBIN 10.5 g/dL (12.0-18.0); LYMPHOCYTES # (AUTO) 1.1 K/uL (2.0-11.5); LYMPHOCYTES % (AUTO) 17.7 % (20.5-51.1); MEAN CORPUSCULAR HEMOGLOBIN 27 pg (27-31); MEAN CORPUSCULAR HGB CONC 32 g/dL (33-37); MEAN CORPUSCULAR VOLUME 84.2 fL (80-94); MONOCYTES # (AUTO) 0.6 K/uL (0.8-1.0); MONOCYTES % (AUTO) 9.3 % (1.7-9.3); NEUTROPHILS # (AUTO) 3.8 K/uL (1.8-7.7); PLATELET COUNT (AUTO) 332 K/uL (140-450); RED BLOOD CELL COUNT(AUTO) 3.88 MIL/uL (4.20-6.10); RED CELL DISTRIBUTION WIDTH 14.7 % (11.6-13.7); WHITE BLOOD COUNT (AUTO) 5.9 K/uL (4.8-10.8)
[2019-11-05 05:31] LABS: ANION GAP 10.8 (8-16); CARBON DIOXIDE 25.8 mmol/L (21-32); CREATININE 0.7 mg/dL (0.6-1.3); POTASSIUM 3.6 mmol/L (3.5-5.1)
[2019-11-05] MEDS: VANCOMYCIN 1,000 MG in DEXTROSE 5% 250 ML IV SCH ×2 (06:00→09:56)
--- NOTE | 2019-11-05 06:00 | NUR ---
0600 VANCO NOT ADMINISTERED. LAB YASMIN VANCO TROUGH. AWAITING RESULTS PRIOR TO ADMINISTRATION
[2019-11-05 06:02] LABS: MAGNESIUM 2.1 mg/dL (1.8-2.4); PHOSPHORUS 2.2 mg/dL (2.5-4.9)
[2019-11-05] MEDS: ALBUTEROL SULFATE/IPRATROPIU 3 ML SOL IH SCH ×3 (07:01→19:43)
--- NOTE | 2019-11-05 07:25 | NUR ---
ENDORSED PT TO DAYSHIFT RN FOR CONTINUITY OF CARE. VSS.
--- NOTE | 2019-11-05 07:30 | NUR ---
RECEIVED PT REPORT FROM PM SHIFT NURSE . BEDSIDE MONITOR SHOWS SR. PT RESTING IN BED WITH EYES CLOSED. RESPONDS VERBALLY. + S1/S2 UPON AUSCULTATION. O2 NC @ 3LPM. SPO2 @ 97%. PT HAS MIDLINE TO RIGHT UPPER ARM RUNNING 0.9 NS AT 60 CC/HR. BOWEL SOUNDS ACTIVE X4. ABDOMEN SOFT, NON-TENDER, NON-DISTENDED. URINARY CATH IN PLACE DRAINING CLEAR, YELLOW-COLORED URINE NOTED. BLE CONTRACTED WITH MUSCLE ATROPHY. REMOVED 22G IV TO RT FOOT. SKIN WARM, DRY, AND INTACT. SAFETY PRECAUTIONS IN PLACE. BED LOW AND LOCKED. CALL LIGHT WITHIN REACH. WILL CONTINUE TO MONITOR .
[2019-11-05] MEDS ORDERED: DEXT 5% /NACL 0.9% 1,000 ML IV SCH (09:00)
[2019-11-05] MEDS: ZINC SULF 220 MG CAP NG SCH (09:51)
[2019-11-05] MEDS: OSELTAMIVIR PHOSPHATE 6 MG/ML SUSPENSION NG SCH ×2 (09:52→20:13)
[2019-11-05] MEDS: [UNRECOGNIZED DRUG - OTHER] OP SCH ×3 (11:28→21:10)
[2019-11-05] MEDS: NEOMYCIN OP SCH ×3 (11:28→21:10)
[2019-11-05] MEDS: POLYMYXIN OP SCH ×3 (11:28→21:10)
[2019-11-05] MEDS ORDERED: ERYTHROMYCIN 0.5% OPTH OINT 1 GM TUBE OP SCH (12:00)
--- NOTE | 2019-11-05 12:45 | NUR ---
NOTIFIED DR. BASS PT SBP [address] BASS, INCREASE IV FLUID FROM 80 CC/HR TO 100 CC/HR AND MONITOR BP. CARRIED OUT.
--- NOTE | 2019-11-05 14:30 | NUR ---
pt resting in bed, denies sob or discomfort. bedside monitor shows SR.
--- NOTE | 2019-11-05 16:00 | NUR ---
turned and repositioned pt. pt tolerated well. no situation changed .
--- NOTE | 2019-11-05 16:05 | NUR ---
in to check pt. updated pt's situation. per dr. Kerr, pt ok with puree diet.
[2019-11-05] MEDS: MUPIROCIN CA NASAL 2% 1GM TUBE NS SCH (17:45)
[2019-11-05] MEDS: CHLORHEXADINE GLUC 2% CLOTH TP SCH (17:46)
--- NOTE | 2019-11-05 18:00 | NUR ---
charge nurse fed pt, per charge nurse, pt tolerated well. no sob or choke noted.
--- NOTE | 2019-11-05 19:15 | NUR ---
endorsed to pm shift rn. pt vital stable.
[2019-11-05] MEDS ORDERED: DEXT 5% / NACL 0.9% 500 ML IV SCH (19:25)
--- NOTE | 2019-11-05 19:30 | NUR ---
RECEIVED PT REPORT FROM DAYSOHFT NURSE. CURRENTLY RESTING IN BED WITH EYES OPEN. RESPONDS VERBALLY. AFEBRILE @ 98.9, TEMPORAL. A/O X3, WITH SLOW, GARBLED, SPEECH. DENIES PAIN, FLACC 0. PERRL. NO JVD. NSR ON MONITOR. + S1/S2 UPON AUSCULTATION. O2 @ 3LPM VIA NC. SPO2 @ 97%. NO SOB NOTED. RHONCHI THROUGHOUT UPON INSPIRATION/ EXPIRATION. BOWEL SOUNDS ACTIVE X4. ABDOMEN SOFT, NON-TENDER, AND NON-DISTENDED. INDWELLING URINARY CATH IN PLACE DRAINING CLEAR, YELLOW-COLORED, URINE TO GRAVITY. BLE WITH +DECORTICATE POSTURING, +MUSCLE ATROPHY. XIOMY MIDLINE INFUSING 0.9% D5 @ 100 ML/HR. SAFETY PRECAUTIONS IN PLACE. BED LOW AND LOCKED. CALL LIGHT LEFT WITHIN REACH.
--- NOTE | 2019-11-05 19:48 | NUR ---
RECEIVED PT FROM AM SHIFT ON 3L NC WITH AND SP02 OF 93% AND A COARSE BREATH SOUNDS. NO RESPIRATORY DISTRESS NOTED AT THIS TIME. HHN TX GIVEN ORDERED WITH NO ADVERSE REACTION. BVM AT BEDSIDE. WILL CONTINUE TO MONITOR PT.
[2019-11-05] MEDS: NACL 0.9% 1,000 ML IV SCH (20:12)
--- NOTE | 2019-11-05 22:00 | NUR ---
ORAL CARE PROVIDED. REPOSITIONED. VSS. DENIES PAIN UPON QUESTIONING. SAFETY PRECAUTIONS REMAIN IN PLACE WITH BED LOW AND LOCKED. SIDE RAILS UP X2. HOB @ 35 DEGREES. WILL CONTINUE TO MONITOR.
--- NOTE | 2019-11-06 | NUR ---
MADE ROUNDS . NO S/SXS OF ACUTE DISTRESS NOTED AT THIS TIME . WILL CONT. TO MONITOR.
--- NOTE | 2019-11-06 | NUR ---
LARGE LOOSE BM @ THIS TIME. JOSÉ ANTONIO-CARE PROVIDED. REPOSITIONED WITH PRESSURE AREAS OFFLOADED.VSS. SAFETY PRECAUTIONS REMAIN IN PLACE. BED LOW AND LOCKED. CALL LIGHT LEFT WITHIN REACH
[2019-11-06] MEDS: PIPERACILLIN/TAZOBACTAM 3.375 GM in DEXTROSE 5% 50 ML IV SCH ×5 (00:22→23:28)
[2019-11-06] MEDS: NEOMYCIN OP SCH ×7 (00:46→23:28)
[2019-11-06] MEDS: POLYMYXIN OP SCH ×7 (00:46→23:28)
[2019-11-06] MEDS: [UNRECOGNIZED DRUG - OTHER] OP SCH ×7 (00:46→23:28)
[2019-11-06 02:00] VITALS: BP 101/58
--- NOTE | 2019-11-06 04:15 | NUR ---
PT TRANSFERRED TO MED SURG/TELE UNIT, ROOM 107 A PER MD ORDERS. ALL PERSONAL BELONGINGS SENT WITH PT. REPORT GIVEN TO LA NENA CHAHAL FOR CONTINUITY OF CARE.
--- NOTE | 2019-11-06 04:16 | NUR ---
RECEIVED PT REPORT FROM ICU NURSE FOR CONTINUOUS CARE. CURRENTLY RESTING IN BED WITH EYES OPEN. DENIES PAIN, FLACC 0. PERRL. BREATHING EVEN AND UNLABORED WITH 3LPM VIA NC. NO SOB NOTED. BOWEL SOUNDS NOTED X4 QUADRANT. ABDOMEN SOFT, NON-TENDER, AND NON-DISTENDED. INDWELLING URINARY CATH IN PLACE DRAINING CLEAR, YELLOW-COLORED, BLE WITH +DECORTICATE POSTURING, +MUSCLE ATROPHY. XIOMY MIDLINE INFUSING 0.9% D5 @ 100 ML/HR. SAFETY PRECAUTIONS IN PLACE. BED LOW AND LOCKED. CALL LIGHT LEFT WITHIN REACH.
--- NOTE | 2019-11-06 04:41 | NUR ---
GIVEN NEOSPORIN OPTH MD ORDERED. PT TOLERATED WELL.
--- NOTE | 2019-11-06 05:04 | NUR ---
GIVEN ZOSYN MD ORDERED. PT TOLERATED WELL.
[2019-11-06] MEDS: NACL 0.9% 1,000 ML IV SCH (05:35)
[2019-11-06] MEDS: VANCOMYCIN 1,000 MG in DEXTROSE 5% 250 ML IV SCH ×2 (05:53→18:49)
--- NOTE | 2019-11-06 05:53 | NUR ---
GIVEN VANCO MD ORDERED. PT TOLERATED WELL.
[2019-11-06] MEDS ORDERED: MUPIROCIN CA NASAL 2% 1GM TUBE NS SCH (05:55)
[2019-11-06] MEDS ORDERED: CHLORHEXADINE GLUC 2% CLOTH TP SCH (05:55)
[2019-11-06 05:58] LABS: BASOPHILS % (AUTO) 0.2 % (0.0-2.0); EOSINOPHILS # (AUTO) 0.7 K/uL (0-0.4); EOSINOPHILS % (AUTO) 8.3 % (0.0-4.0); HEMATOCRIT 30.3 % (36-52); HEMOGLOBIN 10.1 g/dL (12.0-18.0); LYMPHOCYTES # (AUTO) 1.1 K/uL (2.0-11.5); MEAN CORPUSCULAR HEMOGLOBIN 28 pg (27-31); MEAN CORPUSCULAR HGB CONC 33 g/dL (33-37); MEAN CORPUSCULAR VOLUME 83.8 fL (80-94); MONOCYTES # (AUTO) 0.7 K/uL (0.8-1.0); MONOCYTES % (AUTO) 7.7 % (1.7-9.3); NEUTROPHILS # (AUTO) 6.1 K/uL (1.8-7.7); NEUTROPHILS % (AUTO) 70.8 % (42.2-75.2); PLATELET COUNT (AUTO) 390 K/uL (140-450); RED BLOOD CELL COUNT(AUTO) 3.62 MIL/uL (4.20-6.10); RED CELL DISTRIBUTION WIDTH 14.7 % (11.6-13.7); WHITE BLOOD COUNT (AUTO) 8.7 K/uL (4.8-10.8)
[2019-11-06 06:08] LABS: ANION GAP 9.5 (8-16); CREATININE 0.8 mg/dL (0.6-1.3); POTASSIUM 3.5 mmol/L (3.5-5.1)
[2019-11-06 06:09] LABS: MAGNESIUM 1.7 mg/dL (1.8-2.4); PHOSPHORUS 1.8 mg/dL (2.5-4.9)
--- NOTE | 2019-11-06 06:21 | NUR ---
PT IN STABLE CONDITION. WILL ENDORSE PT TO DAY SHIFT NURSE.
[2019-11-06] MEDS: DEXT 5% /NACL 0.9% 1,000 ML IV SCH ×3 (06:29→23:28)
--- NOTE | 2019-11-06 07:15 | NUR ---
RECEIVED BEDSIDE REPORT FROM NIGHTSHIFT NURSE. PT RESTING IN BED UPON ARRIVAL. ABLE TO MAKE NEEDS KNOWN. RESPIRATIONS EVEN AND UNLABORED WITH NO SOB OR RESPIRATORY DISTRESS. SKIN WARM AND DRY TO TOUCH. MIDLINE IN RIGHT UPPER ARM IS CLEAN, DRY, AND INTACT. SAFETY MEASURES IN PLACE. WILL CONTINUE TO MONITOR.
[2019-11-06] MEDS: ALBUTEROL SULFATE/IPRATROPIU 3 ML SOL IH SCH ×3 (07:24→20:17)
[2019-11-06 08:00] VITALS: BP 114/67
[2019-11-06] MEDS ORDERED: MAG SULF 2000 MG/WATER PREMIX 50 ML IV SCH (09:00)
[2019-11-06] MEDS: ZINC SULF 220 MG CAP NG SCH (09:51)
[2019-11-06] MEDS: OSELTAMIVIR PHOSPHATE 6 MG/ML SUSPENSION NG SCH ×2 (09:51→19:59)
[2019-11-06] MEDS: SODIUM PHOS / POTASSIUM PHOS 1 PKT PDR PO SCH ×3 (09:52→16:11)
--- NOTE | 2019-11-06 09:52 | NUR ---
ADMINISTERED SCHED MED PRESCRIBED PER MD ORDER. PT TOLERATED WELL. MEDICATION EDUCATION PERFORMED. PT VERBALIZED UNDERSTANDING. SAFETY MEASURES IN PLACE. WILL CONTINUE TO MONITOR.
[2019-11-06 12:00] VITALS: BP 100/59
--- NOTE | 2019-11-06 12:20 | NUR ---
ADMINISTERED SCHED MED PRESCRIBED PER MD ORDER. PT TOLERATED WELL. MEDICATION EDUCATION PERFORMED. PT VERBALIZED UNDERSTANDING. SAFETY MEASURES IN PLACE. WILL CONTINUE TO MONITOR.
--- NOTE | 2019-11-06 13:05 | NUR ---
HOURLY ROUNDING. PT RESTING IN BED UPON ARRIVAL. ABLE TO MAKE NEEDS KNOWN. RESPIRATIONS EVEN AND UNLABORED WITH NO SOB OR RESPIRATORY DISTRESS. SKIN WARM AND DRY TO TOUCH. SAFETY MEASURES IN PLACE. WILL CONTINUE TO MONITOR.
--- NOTE | 2019-11-06 13:27 | NUR ---
ADMINISTERED SCHED MED PRESCRIBED PER MD ORDER. PT TOLERATED WELL. MEDICATION EDUCATION PERFORMED. PT VERBALIZED UNDERSTANDING. SAFETY MEASURES IN PLACE. WILL CONTINUE TO MONITOR.
--- NOTE | 2019-11-06 14:12 | NUR ---
GYM ATTENDANT assessment/discharge plan High Risk DC Screen Yes Name: Samira Medina Home Relationship: sister Pre-Admission Living Arrangements: Other Other: [facility] Current Name/Tel: wheelchair Healthcare Decision Maker: Next of Kin Other: Samira Medina Advance Directive No Tentative Discharge Plan Summary: Patient is a 54 year old male admitted for fever of unknown origin. Patient was previously admitted and discharged from [facility] 10/26/19-10/31/19. On previous hospital admission patient was transferred to [facility] . Per medical administrator Kathleen from [facility] patient has been living at their facility for approximately 1 year and they are able to accept him back upon discharge (except cannot take him back if he needs abx iv/s). Kathleen stated their facility can provide transportation for patient upon discharge from [facility]. She told me patient is wheelchair bound and his pcp is Braulio Tucker. Kathleen reported they have an RN available at their facility. She stated patient is not conserved and his sister Samira Medina is his health care decision maker. Patient's pillowcase cutter from [facility] is Aixa Robledo . I called and spoke with patient's sister Samira, she stated she is unsure if she would like patient to return to [facility] if he needs snf placement. She is planning to contact Aixa Robledo today and ask her if she can recommend her any snfs and she will call me back tomorrow to provide me with an update. I provided her with my contact information. Per India from [facility], patient is on a 7 day bed hold. Cloth Packer and/or Evaluation Engineer will follow up as needed. Signature: MIGUEL ANGEL Mcpherson Date: Nov 06, 2019 Addendum: 11/09/19 at 1320 by Keren Mahajan SS Correction: medical administrator Tenisha from [facility]
[2019-11-06 16:00] VITALS: BP 114/64
[2019-11-06] MEDS: MUPIROCIN CA NASAL 2% 1GM TUBE NS SCH (16:11)
[2019-11-06] MEDS: CHLORHEXADINE GLUC 2% CLOTH TP SCH (16:12)
--- NOTE | 2019-11-06 16:16 | NUR ---
ADMINISTERED SCHED MED PRESCRIBED PER MD ORDER. PT TOLERATED WELL. MEDICATION EDUCATION PERFORMED. PT VERBALIZED UNDERSTANDING. SAFETY MEASURES IN PLACE. WILL CONTINUE TO MONITOR.
--- NOTE | 2019-11-06 19:30 | NUR ---
ENDORSED AT BEDSIDE WITH NIGHTSHIFT NURSE. PT RESTING IN BED UPON ARRIVAL. ABLE TO MAKE NEEDS KNOWN. RESPIRATIONS EVEN AND UNLABORED WITH NO SOB OR RESPIRATORY DISTRESS. SKIN WARM AND DRY TO TOUCH. SAFETY MEASURES IN PLACE. PT IS STABLE
--- NOTE | 2019-11-06 19:30 | NUR ---
RECIEVED PT AWAKE ON BED AWAKE AND ALERT LIMITED RESPONSE TO DAY AND PLACE AND TIME DUE TO BLINDNESS BUT HE CAN ABLE TO ANSWER SIMPLE QUESTIONS AND ABLE TO FOLLOW SIMPLE COMMAND SUCH OPEN YOUR MOUTH AND CLOSE YOUR EYES. NID - O2 SAT WNL , W/ O2 SAT AT 2LP/NC .W/ FC DRAINING CLEAR U.O .POC DISCUSSED AND FAIR UNDERSTANDING.ON STUDENT NURSE . ON SAFETY / FALL PRECAUTION PROTOCOL - CALL LIGHT WITHIN REACH . WILL CONT. TO MONITOR. Addendum: 11/07/19 at 0042 by Jenny Turner RN W/ MIDLINE ON XIOMY - IVF INFUSING WELL
[2019-11-06 20:00] VITALS: BP 117/65
--- NOTE | 2019-11-06 22:00 | NUR ---
MADE ROUNDS . RESTING ON BED COMFORTABLY . NO SIGNS OF DISTRESS NOTED AT THIS TIME . WILL CONT. TO MONITOR.
[2019-11-07] VITALS: BP 118/63
--- NOTE | 2019-11-07 00:39 | NUR ---
MADE ROUNDS . NO S/SXS OF ACUTE DISTRESS NOTED AT THIS TIME.
[2019-11-07 04:00] VITALS: BP 110/60
[2019-11-07] MEDS: [UNRECOGNIZED DRUG - OTHER] OP SCH ×4 (04:00→16:33)
[2019-11-07] MEDS: POLYMYXIN OP SCH ×4 (04:00→16:33)
[2019-11-07] MEDS: NEOMYCIN OP SCH ×4 (04:00→16:33)
[2019-11-07] MEDS: PIPERACILLIN/TAZOBACTAM 3.375 GM in DEXTROSE 5% 50 ML IV SCH ×3 (06:00→18:00)
[2019-11-07] MEDS: VANCOMYCIN 1,000 MG in DEXTROSE 5% 250 ML IV SCH ×2 (06:07→18:00)
[2019-11-07 06:48] LABS: BASOPHILS % (AUTO) 0.3 % (0.0-2.0); EOSINOPHILS # (AUTO) 0.8 K/uL (0-0.4); EOSINOPHILS % (AUTO) 9.5 % (0.0-4.0); HEMATOCRIT 31.2 % (36-52); HEMOGLOBIN 10.2 g/dL (12.0-18.0); LYMPHOCYTES # (AUTO) 1.1 K/uL (2.0-11.5); LYMPHOCYTES % (AUTO) 13.2 % (20.5-51.1); MEAN CORPUSCULAR HEMOGLOBIN 28 pg (27-31); MEAN CORPUSCULAR HGB CONC 33 g/dL (33-37); MEAN CORPUSCULAR VOLUME 84.1 fL (80-94); MONOCYTES # (AUTO) 0.9 K/uL (0.8-1.0); MONOCYTES % (AUTO) 11.2 % (1.7-9.3); NEUTROPHILS # (AUTO) 5.3 K/uL (1.8-7.7); NEUTROPHILS % (AUTO) 65.8 % (42.2-75.2); PLATELET COUNT (AUTO) 457 K/uL (140-450); RED BLOOD CELL COUNT(AUTO) 3.71 MIL/uL (4.20-6.10); RED CELL DISTRIBUTION WIDTH 14.5 % (11.6-13.7)
[2019-11-07 06:56] LABS: ANION GAP 10.2 (8-16); CARBON DIOXIDE 27.4 mmol/L (21-32); CREATININE 0.8 mg/dL (0.6-1.3); POTASSIUM 3.6 mmol/L (3.5-5.1)
--- NOTE | 2019-11-07 07:15 | NUR ---
RECEIVED REPORT FROM LEAD INVESTIGATOR NURSE FOR CONTINUITY OF CARE. PT IN STABLE CONDITION. RESPIRATIONS EVEN AND UNLABORED. IV INTACT AND PATENT. SAFETY MEASURES IN PLACE. BED IN LOW POSITION. BED ALARM ON. CALL LIGHT AT BEDSIDE. WILL CONTINUE TO MONITOR.
[2019-11-07] MEDS: ALBUTEROL SULFATE/IPRATROPIU 3 ML SOL IH SCH ×2 (07:40→13:10)
[2019-11-07 08:00] VITALS: BP 109/68
[2019-11-07] MEDS: SODIUM PHOS / POTASSIUM PHOS 1 PKT PDR PO SCH ×3 (09:00→16:38)
[2019-11-07] MEDS: ZINC SULF 220 MG CAP NG SCH (09:01)
--- NOTE | 2019-11-07 09:10 | NUR ---
GAVE ORDERED DUE MEDICATION AT THIS TIME. PT TOLERATED WELL. WILL CONTINUE TO MONITOR.
[2019-11-07] MEDS ORDERED: ZOS3.375I IV (10:18)
[2019-11-07] MEDS ORDERED: VANC1PDS13 IV (10:21)
[2019-11-07] MEDS ORDERED: TAM75 PO (10:22)
--- NOTE | 2019-11-07 10:38 | NUR ---
Plastic Surgery Technician Note: I faxed referral to [facility], phone number per patient's sister Samira Medina request, , Manager Control Samira, and Manager Control Aixa from [facility] made aware. Addendum: 11/07/19 at 1517 by Keren CHENG Provided patient's sister Samira with information on Important Message from Medicare via phone.
--- NOTE | 2019-11-07 11:09 | NUR ---
DISCHARGE PLANNING: A 54 Y/O MALE PATIENT FROM [facility], WHO CAME IN DUE TO FEVER X 2 DAYS. PAST MEDICAL HISTORY INCLUDE CEREBRAL PALSY WITH SPASTIC QUADRIPARESIS, CONTRACTURES, BLINDNESS, OSTEOPOROSIS, HTN AND CHRONIC CONSTIPATION. CURRENT LABS INCLUDE WBC 8.0, H/H 10.2/31.2, NA/K 144/3.6, BUN/CREA 5/0.8. ID AND PULMO CONSULTS IN PLACE. ON ZOSYN AND VANCO. DC PLAN TO SNF ONCE STABLE.
[2019-11-07 12:00] VITALS: BP 116/63
[2019-11-07] MEDS: OSELTAMIVIR PHOSPHATE 6 MG/ML SUSPENSION NG SCH (12:11)
[2019-11-07] MEDS: DEXT 5% /NACL 0.9% 1,000 ML IV SCH (12:16)
--- NOTE | 2019-11-07 12:17 | NUR ---
Attorney Note: I received a call from patient's sister Samira Medina she stated she would like patient to return to [facility] after all, and Manager Erp Samira made aware. Addendum: 11/07/19 at 1220 by Keren Mahajan SS I faxed patient's clinical information to [facility].
--- NOTE | 2019-11-07 12:25 | NUR ---
GAVE ORDERED DUE MEDICATION AT THIS TIME. PT IN STABLE CONDITION. FAMILY AT BEDSIDE. WILL CONTINUE TO MONITOR. BED IN LOW POSITION. BED ALARM ON. CALL LIGHT AT BEDSIDE. WILL CONTINUE TO MONITOR.
--- NOTE | 2019-11-07 13:28 | NUR ---
Park Recreation Manager Note: Per Peter from [facility] , patient may return room 51A today and accepting MD is Dr.Mallu Ramsey. She told me patient's pcp is Dr.Mallu Ramsey. Addendum: 11/08/19 at 1035 by Keren Mahajan SS Late entry for 11/07/19: Per Byproducts Extractor Samira, patient does not meet criteria for [facility] or [employer]. Per patient's sister Samira, she cannot pay for transportation. Per Loly from [facility], they cannot pay for transportation. Per Byproducts Extractor Aixa from [facility], they do not pay for transportation.
--- NOTE | 2019-11-07 13:31 | NUR ---
*S.T. TREATMENT NOTE* S: Pt seen at bedside, having just finished RT treatment. Pt easily arousable and responded appropriately to questions. Pt denied pain 0/10. O: P.O. trials honey thick liquids and nectar thick liquids and thin liquids via spoon, and straw sips of thin liquid. A: Pt coughed immediately after straw sip of thin liquid. No overt s/s aspiration observed after swallows of spoon sips of honey thick and nectar thick liquids. Pt is demonstrating poorer swallow function as compared to previous admit 10/31/2019. Pt continues to demonstrate mild-mod oropharyngeal dysphagia for thin liquids. P: Recommend continue mechanical soft chopped diet, advance liquid texture to NECTAR thick liquids via spoon and continue 1:1 feeder w/ aspiration precautions. Endorsed to ns. Time [id number]
--- NOTE | 2019-11-07 14:22 | NUR ---
PT SLEEPING AT THIS TIME. RESPIRATIONS EVEN AND UNLABORED. BED IN LOW POSITION. CALL LIGHT AT BEDSIDE. BED ALARM ON. WILL CONTINUE TO MONITOR.
--- NOTE | 2019-11-07 15:09 | NUR ---
CALLED [employer] AND SET UP TRANSPORTATION AT 1900.
[2019-11-07] MEDS: MUPIROCIN CA NASAL 2% 1GM TUBE NS SCH (16:37)
[2019-11-07] MEDS: CHLORHEXADINE GLUC 2% CLOTH TP SCH (16:37)
--- NOTE | 2019-11-07 16:38 | NUR ---
PHOS-NAK GIVEN AT 1300
[2019-11-07] MEDS ORDERED: POTASSIUM CHLORIDE 20% 40 MEQ/15 ML UDC NG SCH (17:00)
--- NOTE | 2019-11-07 18:01 | NUR ---
GAVE REPORT TO RADHA STAFF NURSE AT [facility]. FOR CONTINUITY OF CARE. ALL QUESTIONS ANSWERED. RADHA VERBALIZED UNDERSTANDING OF INSTRUCTIONS.
--- NOTE | 2019-11-07 19:00 | NUR ---
GAVE REPORT TRANSPORT TEAM AT THIS TIME. ALL QUESTIONS ANSWERED AT THIS TIME. DISCONNECTED IV. REMOVED IV, LUMEN INTACT. REMOVED IV BAND. PT PLACED ON GURNEY IN STABLE CONDITION.
[2019-11-08] MEDS ORDERED: MAGNESIUM OXIDE 400 MG TAB PO SCH (09:00)
== END 2019-11-07 19:00 | DRG 193 ==
LOC: MED 12:00 → MTU 14:24 → UNDOADMIN 14:24 → MIC 14:58 → MTU 11-06 04:00
PROVIDERS: ADMIT General Practice; ATTEND General Practice
PROC: 05HY33Z Insertion of Infusion Device into Upper Vein, Percutaneous Approach (ICD-10-PCS; principal; 2019-11-03)
PROC: B54MZZA Ultrasonography of Right Upper Extremity Veins, Guidance (ICD-10-PCS; 2019-11-03)
DX: J10.08 Influenza due to other identified influenza virus with other specified pneumonia (principal); G80.0 Spastic quadriplegic cerebral palsy; J96.21 Acute and chronic respiratory failure with hypoxia; E43 Unspecified severe protein-calorie malnutrition; J15.9 Unspecified bacterial pneumonia; D64.9 Anemia, unspecified; E87.6 Hypokalemia; I10 Essential (primary) hypertension; M81.0 Age-related osteoporosis without current pathological fracture; Z96.642 Presence of left artificial hip joint; R31.9 Hematuria, unspecified; K59.09 Other constipation; N20.0 Calculus of kidney; N41.1 Chronic prostatitis; E83.42 Hypomagnesemia; E83.39 Other disorders of phosphorus metabolism; Z68.24 Body mass index [BMI] 24.0-24.9, adult; Z88.1 Allergy status to other antibiotic agents; Z88.8 Allergy status to other drugs, medicaments and biological substances; Z91.018 Allergy to other foods; Z90.49 Acquired absence of other specified parts of digestive tract; Z95.5 Presence of coronary angioplasty implant and graft; Z93.0 Tracheostomy status
CPT/HCPCS: 36415; 36600; 71045; 80048; 80053; 80202; 81001; 82803; 82948; 83605; 83735; 83880; 84100; 84484; 85025; 85610; 85730; 87040; 87081; 87086; 87804; 92526; 92610; 93005; 94640; 96361; 96365; 99291; C1751; J0456; J0696; J1200; J2543; J3370; J3475; J7030; J7042; J7060; J7620; Q0092

== ENCOUNTER 2019-11-08 10:56 | Inpatient (IN) | payer OTHER, MEDICAID ==
[~2019-11-08] VITALS: Ht 165.1 cm; Wt 73.0 kg
[~2019-11-08 10:56] MED LIST changes: +TAM75 PO; +VANC1PDS13 IV; -ZINC220C12 PO; +ZINC220C28 PO
--- NOTE | 2019-11-08 10:56 | NUR ---
PATIENT BIBA TO BED 1 AT THIS TIME.
[2019-11-08 11:00] VITALS: BP 109/64
--- NOTE | 2019-11-08 11:11 | NUR ---
54 Y/O M BIBA FOR C/O SOB, LETHARGIC, FEVER. PT TEMPERATURE IN ED IS 98.4, PT AO4. PT OXYGEN LEVEL 100% ON 3 L NC. PT HAS A FOLLEY IN PLACE DRAINING CLEAR YELLOW URINE. PT HAS A PICC LINE IN THE RIGHT INNER ARM. PT POSITIONED FOR COMFORT.
--- NOTE | 2019-11-08 11:11 | NUR ---
DR. MAN EXAMINING PATIENT AT BEDSIDE.
--- NOTE | 2019-11-08 11:24 | NUR ---
X-RAY TECH AT BED PERFORMING ORDERED TEST.
--- NOTE | 2019-11-08 11:24 | NUR ---
LAB AT BEDSIDE DRAWING ORDERED LAB WORK.
--- NOTE | 2019-11-08 11:26 | NUR ---
EMT AT BEDSIDE PERFORMING ORDERED EKG.
--- NOTE | 2019-11-08 11:42 | NUR ---
ABG COMPLETED PRESSURE APPLIED TO PUNCTURE SITE NO ADVERSE REACTIONS NOTED
[2019-11-08 11:47] LABS: BASOPHILS % (AUTO) 0.3 % (0.0-2.0); EOSINOPHILS # (AUTO) 0.6 K/uL (0-0.4); EOSINOPHILS % (AUTO) 7.4 % (0.0-4.0); HEMATOCRIT 33.9 % (36-52); HEMOGLOBIN 10.9 g/dL (12.0-18.0); LYMPHOCYTES # (AUTO) 0.6 K/uL (2.0-11.5); LYMPHOCYTES % (AUTO) 7.6 % (20.5-51.1); MEAN CORPUSCULAR HEMOGLOBIN 27 pg (27-31); MEAN CORPUSCULAR HGB CONC 32 g/dL (33-37); MEAN CORPUSCULAR VOLUME 83.8 fL (80-94); MONOCYTES # (AUTO) 0.9 K/uL (0.8-1.0); MONOCYTES % (AUTO) 10.2 % (1.7-9.3); NEUTROPHILS # (AUTO) 6.3 K/uL (1.8-7.7); NEUTROPHILS % (AUTO) 74.5 % (42.2-75.2); PLATELET COUNT (AUTO) 562 K/uL (140-450); RED BLOOD CELL COUNT(AUTO) 4.04 MIL/uL (4.20-6.10); RED CELL DISTRIBUTION WIDTH 14.6 % (11.6-13.7); WHITE BLOOD COUNT (AUTO) 8.5 K/uL (4.8-10.8)
[2019-11-08 11:56] LABS: APPEARANCE,URINE CLEAR (CLEAR); BILIRUBIN,URINE NEGATIVE (NEGATIVE); BLOOD, URINE 1+ (NEGATIVE); COLOR,URINE YELLOW (YELLOW); LEUKOCYTE ESTERASE ,URINE NEGATIVE (NEGATIVE); NITRITE, URINE NEGATIVE (NEGATIVE); PH,URINE 6.5 (5.0-9.0); UGLUCOSE NEGATIVE (NEGATIVE)
[2019-11-08 12:10] LABS: WBC,URINE 0-5 /HPF (0-5)
[2019-11-08] MEDS ORDERED: LEVOFLOXACIN 500 MG/D5W PREMIX 100 ML IV ONE (12:10)
[2019-11-08 12:14] LABS: ALBUMIN 2.2 g/dL (3.4-5.0); ANION GAP 10.2 (8-16); CARBON DIOXIDE 27.6 mmol/L (21-32); CREATININE 0.8 mg/dL (0.6-1.3); POTASSIUM 3.8 mmol/L (3.5-5.1); TOTAL BILIRUBIN 0.5 mg/dL (0.0-1.0)
--- NOTE | 2019-11-08 12:16 | NUR ---
MURIEL TO USE PICC PER DR MAN.
[2019-11-08 13:55] VITALS: BP 128/75
--- NOTE | 2019-11-08 13:55 | NUR ---
PT. BROUGHT INTO UNIT BY JEN. RECEIVED REPORT FROM ER NURSE. PT. NOT IN DISTRESSED WILL CONTINUE TO MONITOR.
--- NOTE | 2019-11-08 14:00 | NUR ---
Patient will be admitted to care of DR MAX. Admited to MED SURG TELE. Will go to room 115. Belongings list completed. Report to TIRSO SOLOMON.
--- NOTE | 2019-11-08 14:10 | NUR ---
XIOMY PICC LINE NOTED AND IN PLACE. CHECKED FOR PATENCY AND PLACEMENT.
--- NOTE | 2019-11-08 15:58 | NUR ---
MRSA SWAB DONE TO PT NOW AND SAMPLE WAS SENT TO LAB
[2019-11-08 16:00] VITALS: BP 137/75
[2019-11-08] MEDS ORDERED: BISACODYL 5 MG TABEC PO PRN (18:20)
[2019-11-08] MEDS ORDERED: MAGNESIUM HYDROXIDE 2400 MG/30 ML UDC PO PRN (18:20)
[2019-11-08] MEDS ORDERED: MAGNESIUM CITRATE 300 ML BTL PO PRN (18:20)
[2019-11-08] MEDS ORDERED: VANCOMYCIN PER PHARMACY MC PRN (18:20)
[2019-11-08] MEDS ORDERED: ONDANSETRON 4 MG/2 ML VIAL IVP PRN (18:25)
[2019-11-08] MEDS ORDERED: HYDROcodone/APAP 5/325 MG 1 TAB TAB PO PRN (18:25)
[2019-11-08] MEDS ORDERED: LORazepam 2 MG/ML VIAL IVP PRN (18:25)
--- NOTE | 2019-11-08 19:25 | NUR ---
ENDORSED PT TO TRIMMING DEPARTMENT BLOCKER NURSE FOR CONTINUITY OF CARE.
[2019-11-08 19:30] LABS: CREATINE KINASE MB 0.8 ng/mL (0-3.6)
--- NOTE | 2019-11-08 19:30 | NUR ---
RECEIVED BEDSIDE REPORT FROM AM SHIFT RN FOR PT'S CONTINUITY OF CARE. PT IS LYING DOWN, ASLEEP, WITH NO SIGNS OF DISTRESS. PT IS ON SPARERIBS TRIMMER, IS ON 2L O2 VIA NC, HAS RIGHT UPPER ARM PICC LINE SALINE LOCK. PT ON DROPLET ISOLATION FOR POSITIVE INFLUENZA A. SAFETY MEASURES IN PLACE, AND CALL LIGHT IS WITHIN REACH. WILL MONITOR PT THROUGHOUT SHIFT.
[2019-11-08 20:00] VITALS: BP 139/80
[2019-11-08] MEDS ORDERED: VANCOMYCIN 1,000 MG VIAL IV SCH (21:00)
[2019-11-08] MEDS ORDERED: NON-FORMULARY ITEM (Ranitidine HCl (Ranitidine Hcl) 1 CAP) PO SCH (21:00)
[2019-11-08] MEDS ORDERED: CRUSHER, PILL MC ONE (21:23)
[2019-11-08] MEDS: SENNA 8.6 MG TAB PO PRN (21:29)
[2019-11-08] MEDS: OSELTAMIVIR PHOSPHATE 75 MG CAP PO SCH (21:30)
[2019-11-08] MEDS: PIPERACILLIN/TAZOBACTAM 3.375 GM VIAL IV SCH (21:30)
[2019-11-08] MEDS: FAMOTIDINE 20 MG TAB PO SCH (21:30)
--- NOTE | 2019-11-08 21:30 | NUR ---
ADMINISTERED SCHEDULED MEDICATIONS ORDERED, PO MEDICATIONS CRUSHED IN APPLESAUCE. PT TOLERATED IT WELL. OBTAINED INFLUENZA A & B CULTURE SWAB AND SENT TO LAB. APPLIED SCD IN PLACE. PT DENIES ANY PAIN OR DISCOMFORT AT THIS TIME. PT MADE COMFORTABLE. WILL CONTINUE TO MONITOR PT.
[2019-11-08] MEDS: CARBAMIDE PEROXIDE 6.5% OT 15 ML BTL OT SCH (21:31)
[2019-11-08] MEDS: VANCOMYCIN 1,000 MG in DEXTROSE 5% 250 ML IV SCH (22:34)
[2019-11-09] VITALS (7 sets, daily range): BP systolic 78–139; BP diastolic 44–90
--- NOTE | 2019-11-09 | NUR ---
PT ASLEEP WITH NO SIGNS OF DISTRESS. WILL CONTINUE TO MONITOR PT.
--- NOTE | 2019-11-09 02:15 | NUR ---
MADE ROUND. PT ASLEEP WITH NO SIGNS OF DISTRESS. WILL CONTINUE TO MONITOR PT.
--- NOTE | 2019-11-09 04:00 | NUR ---
VS CHECKED AND CHARTED. PT ASLEEP, WITH NO SIGNS OF DISTRESS. WILL CONTINUE TO MONITOR PT.
[2019-11-09] MEDS: PIPERACILLIN/TAZOBACTAM 3.375 GM VIAL IV SCH (04:42)
--- NOTE | 2019-11-09 06:30 | NUR ---
PT LYING DOWN WITH NO SIGNS OF DISTRESS. MADE PT COMFORTABLE. WILL ENDORSE TO AM SHIFT RN FOR PT'S CONTINUITY OF CARE.
[2019-11-09 07:12] LABS: BASOPHILS % (AUTO) 0.6 % (0.0-2.0); EOSINOPHILS # (AUTO) 0.6 K/uL (0-0.4); EOSINOPHILS % (AUTO) 7.6 % (0.0-4.0); HEMATOCRIT 33.4 % (36-52); HEMOGLOBIN 10.7 g/dL (12.0-18.0); LYMPHOCYTES # (AUTO) 0.7 K/uL (2.0-11.5); LYMPHOCYTES % (AUTO) 8.9 % (20.5-51.1); MEAN CORPUSCULAR HEMOGLOBIN 27 pg (27-31); MEAN CORPUSCULAR HGB CONC 32 g/dL (33-37); MEAN CORPUSCULAR VOLUME 84.3 fL (80-94); MONOCYTES # (AUTO) 0.7 K/uL (0.8-1.0); MONOCYTES % (AUTO) 8.8 % (1.7-9.3); NEUTROPHILS % (AUTO) 74.1 % (42.2-75.2); PLATELET COUNT (AUTO) 587 K/uL (140-450); RED BLOOD CELL COUNT(AUTO) 3.96 MIL/uL (4.20-6.10); RED CELL DISTRIBUTION WIDTH 14.7 % (11.6-13.7); WHITE BLOOD COUNT (AUTO) 8.1 K/uL (4.8-10.8)
--- NOTE | 2019-11-09 07:20 | NUR ---
RECEIVED PT FROM PIPE BENDER NURSENAVJOT, PT IS ASLEEP AND LYING ON THE BED WITH SIDE RAILS UP AND CALL LIGHT WITHIN REACH, BED IN LOW POSITION AND BED ALARM ACTIVATED, PT IS ON O2 2L NC, RESPIRATION IS EVEN, PT A A MIDLINE DOUBLE LUMEN IV ACCESS ON SALINE LOCK, NO SIGN OF DISTRESS NOTED AND WILL MONITOR PT.
[2019-11-09 07:43] LABS: ANION GAP 10.2 (8-16); CARBON DIOXIDE 27.7 mmol/L (21-32); POTASSIUM 3.9 mmol/L (3.5-5.1)
[2019-11-09 08:13] LABS: MAGNESIUM 1.7 mg/dL (1.8-2.4); PHOSPHORUS 2.6 mg/dL (2.5-4.9)
[2019-11-09] MEDS: MULTIVITAMIN/MINERALS 1 TAB PO SCH (08:16)
[2019-11-09] MEDS: ZINC SULF 220 MG CAP PO SCH (08:16)
[2019-11-09] MEDS: OSELTAMIVIR PHOSPHATE 75 MG CAP PO SCH ×2 (08:17→21:01)
[2019-11-09] MEDS: SENNA 8.6 MG TAB PO PRN (08:17)
[2019-11-09] MEDS: METOCLOPRAMIDE 10 MG TAB PO SCH (08:17)
[2019-11-09] MEDS: ACETAMINOPHEN 325 MG TAB PO PRN ×2 (08:17→16:41)
[2019-11-09] MEDS: LACTOBACILLUS RHAMNOSUS GG 1 EACH CAP PO SCH (08:18)
[2019-11-09] MEDS: FAMOTIDINE 20 MG TAB PO SCH ×2 (08:18→21:11)
[2019-11-09] MEDS: POLYETHYLENE GLYCOL 17 GM/PKT PO PRN ×2 (08:19→16:44)
[2019-11-09] MEDS: PSYLLIUM 12.2 GM/PKT PO SCH (08:21)
[2019-11-09] MEDS: CARBAMIDE PEROXIDE 6.5% OT 15 ML BTL OT SCH ×2 (08:21→21:06)
--- NOTE | 2019-11-09 08:21 | NUR ---
MEDICATIONS CRUSHED AND GIVEN WITH APPLESAUCE. PT. TOLERATED WELL. ASPIRATION PRECAUTIONS INITIATED. NO SIGNS OF DISTRESS NOTED. WILL CONTINUE TO MONITOR.
[2019-11-09] MEDS ORDERED: INULIN PO SCH (09:00)
[2019-11-09] MEDS ORDERED: NON-FORMULARY ITEM (Multivit-Min/Iron Fum/Folic AC (Multi-Vitamin-Minerals Tablet) 1 TAB) PO SCH (09:00)
[2019-11-09] MEDS ORDERED: RHAMNOSUS GG PO SCH (09:00)
[2019-11-09] MEDS ORDERED: LOSARTAN 50 MG TAB PO SCH (09:00)
[2019-11-09] MEDS ORDERED: MAG SULF 2000 MG/WATER PREMIX 50 ML IV SCH (10:00)
[2019-11-09] MEDS: VANCOMYCIN 1,000 MG in DEXTROSE 5% 250 ML IV SCH ×2 (10:18→22:20)
--- NOTE | 2019-11-09 10:18 | NUR ---
PT WAS GIVEN VANCOMYCIN IVPB NOW, WILL MONITOR PT.
--- NOTE | 2019-11-09 10:27 | NUR ---
PATIENT HAS BEEN SCREENED AND CATEGORIZED MODERATE NUTRITION RISK. PATIENT WILL BE SEEN WITHIN 3-5 DAYS OF ADMISSION. 04/10/19 04/12/[address]
--- NOTE | 2019-11-09 12:56 | NUR ---
WATCH GUARD GATE assessment/discharge plan High Risk DC Screen Yes Name: Samira Medina Home Relationship: sister Pre-Admission Living Arrangements: Other Other: [facility] Current Name/Tel: wheelchair Advance Directive No Tentative Discharge Plan Summary: Patient is a 54 year old male admitted for pneumonia. Patient was previously admitted and discharged from [facility] 11/03/19-11/07/19. On previous hospital admission patient was transferred to [facility] . Per linux network administrator Kathleen from [facility] patient has been living at their facility for approximately 1 year and they are able to accept him back upon discharge (except cannot take him back if he needs abx iv/s). Kathleen stated their facility can provide transportation for patient upon discharge from [facility]. She told me patient is wheelchair bound and his pcp is Braulio Tucker. Kathleen reported they have an RN available at their facility. She stated patient is not conserved and his sister Samira Medina is his health care decision maker. Patient's insurance case manager from [facility] is Aixa Robledo . I called and spoke with patient's sister Samira, she stated she would like patient to return to [facility] if he needs snf placement. She is planning to speak with attending MD regarding patient's medical condition and her concerns regarding patient's hospital readmission. I provided her with my contact information. Per Tania from [facility], patient is on a 7 day bed hold. Housekeeper Cleaning Cooking and/or Import Specialist will follow up as needed. Signature: MIGUEL ANGEL Mcpherson Date: Nov 09, 2019 Addendum: 11/09/19 at 1321 by Keren Mahajan SS correction: janak Wang from [facility], Marie from [facility]
[2019-11-09] MEDS ORDERED: PIPERACILLIN/TAZOBACTAM 3.375 GM in DEXTROSE 5% 50 ML IV SCH ×2 (13:04→21:00)
--- NOTE | 2019-11-09 13:20 | NUR ---
PT'S VITAL SIGNS WAS TAKEN AND BP WAS NOTED TO BE LOW, 73/44, PULSE IS 79, TEMP IS 98.1, O2 SATURATION IS 97%, WILL INFORM MD.
--- NOTE | 2019-11-09 13:30 | NUR ---
PAGED DR. KENDELL MAX TO INFORM MD OF THE PT'S BP.
--- NOTE | 2019-11-09 13:35 | NUR ---
SPOKE TO DR. KINGA MAX AND INFORMED MD THAT PT'S BP IS LOW, 73/44, PULSE IS 79, AND MD MADE A TELEPHONE ORDER TO GIVE PT A 500ML BOLUS, READ BACK AND VERIFIED AND WILL CARRY OUT ORDER.
[2019-11-09] MEDS ORDERED: NACL 0.9% 500 ML IV SCH ×2 (13:40→14:00)
--- NOTE | 2019-11-09 13:56 | NUR ---
PT WAS GIVEN ZOSYN IVPB NOW. WILL MONITOR PT.
--- NOTE | 2019-11-09 15:00 | NUR ---
DC PLANNIN YRS OLD MALE PATIENT WAS ADMITTED FROM [facility] WITH A DX OF PNEUMONIA. PT HAS A HX OF CAD, HTN, CONSTIPATION AND INFLUENZA A+ . CXRAY SHOWED PNEUMONIA SUSPECTED LEFT PLEURAL EFFUSION . ADMINISTERED IV ABX VANCOMYCIN AND ZOSYN ORDERED ID CONSULT DR SHUKLA . DC PLAN TO GO BACK TO [facility] WHEN STABLE .CM TO FOLLOW. Addendum: 11/11/19 at 1407 by Estrella Adler CM DC PLANNING: SEEN BY DR SHUKLA CONTINUE CURRENT IV ABX AND FOLLOW URINE AND SPUTUM CULTURES, PRODUCT INSPECTION COORDINATOR DR MANSOOR Tan DISCONTINUED LASIX AND CONTINUE WITH THE FLUID BALANCE. RENAL ULTRASOUND SHOWED RT RENAL CYST CONSULT WITH TRACK VEHICLE REPAIRER FOR THE ACUTE KIDNEY INJURY. DC PLAN TO GO HOME WHEN STABLE CM TO FOLLOW. Addendum: 11/13/19 at 1628 by Estrella Adler CM DC PLANNING: WAITING FOR FINAL RESULT OF BLOOD AND SPUTUM CULTURE CONTINUE WEANING OF O2 AND CONTINUE IV ABX REPEAT CHEST XRAY IN AM CM TO FOLLOW Addendum: 11/14/19 at 1554 by Estrella Adler DC PLANNING PT HAS ORDER FOR [facility] EVAL. CONTACTED GEORGE GROSS ALL THE PAPERWORK WILL REVIEW AND WILL CALL US BACK. CALL PT'S SISTER BOUBACAR CARBALLO AT [phone] LEFT A MESSAGE REGARDING LTAC EVAL. TO FOLLOW Addendum: 11/15/19 at 1135 by Estrella Adler DC PLANNING: SEEN BY TRACK VEHICLE REPAIRER DR CAMACHO DISCONTINUED ALL THE IV ABX , PER DR MAX A PT CAN GO BACK TO [facility] .CALLED PT'S SISTER BOUBACAR WOULD LIKE HER BROTHER TO GO BACK TO THE [facility] .CALLED [facility] [phone] LEFT A MESSAGE FOR ANDREW THE INFANTRY OFFICER. Addendum: 11/16/19 at 0912 by Estrella Adler ND PLANNING CALLED [facility] ([facility] ) [phone] SPOKE WITH CASSANDRA BAR THEY CAN OPTICAL FABRICATION TECHNICIAN PATIENT BETWEEN 11-1PM NOTIFIED NIC CHAHAL.
--- NOTE | 2019-11-09 16:41 | NUR ---
PT WAS GIVEN ACETAMINOPHEN NOW FOR THE TEMPERATURE OF 101.7, MIRALAX WAS GIVEN WELL, ASPIRATION PRECAUTION INITIATED, WILL RE-ASSESS TEMPERATURE AND MONITOR PT..
--- NOTE | 2019-11-09 18:06 | NUR ---
CALLED PT'S SISTER, BOUBACAR AT [phone] AND LEFT A MESSAGE TO HER VOICEMAIL TO ASK REGARDING THE PT'S PNA AND FLU VACCINATION, AWAITING SISTER CALL BACK AND WILL ENDORSE TO DIESEL DINKEY OPERATOR NURSE
--- NOTE | 2019-11-09 19:05 | NUR ---
PV/S TAKEN, BP WAS LOW AND TEMPERATURE WAS HIGH. COOLING MEASURES WERE IMPLEMENTED AND AND MD WAS INFORMED.
--- NOTE | 2019-11-09 19:15 | NUR ---
PT. IS ENDORSED TO DIRECTOR OF ROOMS NURSE. FOR CONTINUITY OF CARE, PT. TEMPERATURE IS 99.4 AFTER COOLING MEASURES. RN AWARE.
--- NOTE | 2019-11-09 19:30 | NUR ---
RECEIVED BEDSIDE REPORT FROM AM SHIFT RN FOR PT'S CONTINUITY OF CARE. PT HAD FEVER BEFORE SHIFT CHANGE, COOLING MEASURES IN PLACE, LATEST ORAL TEMP 99.4. CURRENTLY RECEIVING IV BOLUS, DT LOW BP. PT IS ON FULL TIME BABYSITTER, IS ON O2 4L VIA NC, HAS RIGHT UPPER ARM MIDLINE, SCD IN PLACE. SAFETY MEASURES AND ISOLATION PROTOCOL IN PLACE. WILL CONTINUE TO MONITOR PT.
[2019-11-09] MEDS: CARVEDILOL 6.25 MG TAB PO SCH (21:00)
[2019-11-09] MEDS: FUROSEMIDE 20 MG/2 ML VIAL IVP SCH (21:01)
--- NOTE | 2019-11-09 21:05 | NUR ---
COREG NON-ADMINISTERED DT LOW BP THROUGHOUT AM SHIFT. ADMINISTERED OTHER SCHEDULED PO MEDICATIONS, CRUSHED IN APPLESAUCE, AND SCHEDULED EAR DROPS, IV ABX AND IVP MEDICATIONS ORDERED. PT TOLERATED IT WELL. PT'S CURRENT VS: T 98.7, BP 115/73 (AFTER ORDERED BOLUS), P 109, O2 97%, RR 21. PT STATES FEELS MUCH BETTER THAN EARLIER, DENIES ANY PAIN AT THIS TIME. PT MADE COMFORTABLE, NOTED INTERMITTENT COUGHING. WILL CONTINUE TO MONITOR PT.
--- NOTE | 2019-11-09 22:20 | NUR ---
ADMINISTERED SCHEDULED IV ABX ORDERED. PT NOTED TO BE SHIVERING, BUT DENIES ANY DISTRESS OR DISCOMFORT. PT ABLE TO ANSWER SIMPLE QUESTIONS, AND FOLLOWS SIMPLE COMMANDS. PT ABLE TO COMMUNICATE NEEDS. MADE THE PT COMFORTABLE VS CHECKED: ORAL TEMP 98.3, BP 133/75, RR 23 (NOTED SHALLOW LABORED BREATHING, BUT NO INTERCOSTAL RETRACTIONS. WILL CONTINUE TO MONITOR PT.
[2019-11-10] VITALS: BP 129/59
--- NOTE | 2019-11-10 | NUR ---
PAGED DR. MAX RE: PT'S CONDITION. PT'S CURRENT VS: T 103, BP 136/43, RR 23, O2 95%, P 140. ADMINISTERED PRN PO ACETAMINOPHEN ORDERED. PT TOLERATED IT WELL. ONLY STATES THAT HE FEELS A LITTLE COLD, AND DENIES PAIN AT THIS TIME. COOLING MEASURES IN PLACE, WILL CONTINUE TO MONITOR PT.
[2019-11-10] MEDS: ACETAMINOPHEN 325 MG TAB PO PRN ×3 (00:13→20:52)
--- NOTE | 2019-11-10 00:40 | NUR ---
PAGED DR. MAX AGAIN. PT'S CURRENT VS: T 103, BP 78/34, RR 21, HR 124, O2 93%. PUBLIC HEALTH SPECIALIST AWARE OF PT'S CONDITION.
--- NOTE | 2019-11-10 00:57 | NUR ---
DR. VAZQUEZ STANTON PT, NOTIFIED RE: PT'S CONDITION. NEW ORDERS: DISCONTINUE ZOSYN, START FLUCONAZOLE 200MG AT 100 ML/HR RATE, AND MERREM 1,000 MG IN 100ML NS AT 200ML/HR RATE. WILL CARRY OUT THE ORDERS.
--- NOTE | 2019-11-10 01:15 | NUR ---
DR MAX CALLED, NOTIFIED PT'S CONDITION. NEW ORDERS: BOLUS 1,000 ML NS, AND 1,000 ML D5 0.45% NS AT 100 ML/HR MAINTENANCE FLUID. WILL CARRY OUT ORDERS.
[2019-11-10] MEDS ORDERED: NACL 0.9% 1,000 ML IV SCH (01:20)
[2019-11-10] MEDS: FLUCONAZOLE 200 MG/NS PREMIX 100 ML IV SCH (01:25)
[2019-11-10] MEDS: DEXT 5% / NACL 0.45% 1,000 ML IV SCH ×2 (02:45→11:24)
--- NOTE | 2019-11-10 02:45 | NUR ---
VS AFTER BOLUS T 99.1 BP 84/45, P 91, O2 SAT 99%, RR 20. FISHER TRAWL LINE AWARE. WILL CONTINUE TO MONITOR PT.
[2019-11-10 04:00] VITALS: BP 106/55
[2019-11-10] MEDS ORDERED: MEROPENEM 1,000 MG VIAL IV ONE (04:27)
[2019-11-10] MEDS: MEROPENEM 1,000 MG in NACL 0.9% 100 ML IV SCH ×3 (04:30→20:52)
--- NOTE | 2019-11-10 04:31 | NUR ---
VS CHECKED AND CHARTED. PT'S ORAL TEMP 102. ADMINISTERED PRN PO MEDICATION ORDERED. COOLING MEASURES IN PLACE. PT IS EASILY AROUSABLE, FOLLOWS COMMAND, AND COULD CARRY SHORT CONVERSATIONS. WILL CONTINUE TO MONITOR PT.
[2019-11-10 06:38] LABS: BASOPHILS % (AUTO) 0.3 % (0.0-2.0); EOSINOPHILS # (AUTO) 0.7 K/uL (0-0.4); EOSINOPHILS % (AUTO) 6.3 % (0.0-4.0); HEMATOCRIT 28.9 % (36-52); HEMOGLOBIN 9.3 g/dL (12.0-18.0); LYMPHOCYTES # (AUTO) 0.5 K/uL (2.0-11.5); LYMPHOCYTES % (AUTO) 4.7 % (20.5-51.1); MEAN CORPUSCULAR HEMOGLOBIN 27 pg (27-31); MEAN CORPUSCULAR HGB CONC 32 g/dL (33-37); MEAN CORPUSCULAR VOLUME 84.3 fL (80-94); MONOCYTES # (AUTO) 1.1 K/uL (0.8-1.0); MONOCYTES % (AUTO) 9.6 % (1.7-9.3); NEUTROPHILS # (AUTO) 8.8 K/uL (1.8-7.7); NEUTROPHILS % (AUTO) 79.1 % (42.2-75.2); PLATELET COUNT (AUTO) 501 K/uL (140-450); RED BLOOD CELL COUNT(AUTO) 3.43 MIL/uL (4.20-6.10); RED CELL DISTRIBUTION WIDTH 14.7 % (11.6-13.7); WHITE BLOOD COUNT (AUTO) 11.1 K/uL (4.8-10.8)
--- NOTE | 2019-11-10 06:55 | NUR ---
VS CHECKED: ORAL TEMP 98; BP 97/38 LEFT LEG ; P 92; O2 98%, RR 19. PT DENIES ANY PAIN AT THIS TIME. PAGED DR. MAX FOR UPDATE, AWAITING FOR PHONE CALL. PT MADE COMFORTABLE. WILL ENDORSE TO AM SHIFT RN FOR PT'S CONTINUITY OF CARE.
--- NOTE | 2019-11-10 07:10 | NUR ---
RECEIVED BEDSIDE REPORT FROM NIGHTSHIFT NURSE. PT RESTING IN BED UPON ARRIVAL. ABLE TO MAKE NEEDS KNOWN. RESPIRATIONS EVEN AND UNLABORED WITH NO SOB OR RESPIRATORY DISTRESS. SKIN WARM AND DRY TO TOUCH. DOUBLE LUMEN PICC LINE IS CLEAN, DRY, AND INTACT. SAFETY MEASURES IN PLACE. WILL CONTINUE TO MONITOR.
[2019-11-10 07:26] LABS: ANION GAP 9.5 (8-16); CARBON DIOXIDE 25.2 mmol/L (21-32); CREATININE 2.5 mg/dL (0.6-1.3); POTASSIUM 3.7 mmol/L (3.5-5.1)
[2019-11-10 08:00] VITALS: BP 97/48
[2019-11-10] MEDS: FUROSEMIDE 20 MG/2 ML VIAL IVP SCH ×2 (09:00→21:00)
[2019-11-10] MEDS: CARVEDILOL 6.25 MG TAB PO SCH ×2 (09:00→21:00)
[2019-11-10] MEDS ORDERED: LOSARTAN 25 MG TAB PO SCH (09:00)
[2019-11-10] MEDS: ATORVASTATIN 20 MG TAB PO SCH (09:29)
[2019-11-10] MEDS: LACTOBACILLUS RHAMNOSUS GG 1 EACH CAP PO SCH (09:30)
[2019-11-10] MEDS: SENNA 8.6 MG TAB PO PRN (09:30)
[2019-11-10] MEDS: ZINC SULF 220 MG CAP PO SCH (09:30)
[2019-11-10] MEDS: PSYLLIUM 12.2 GM/PKT PO SCH (09:32)
[2019-11-10] MEDS: MULTIVITAMIN/MINERALS 1 TAB PO SCH (09:32)
[2019-11-10] MEDS: FAMOTIDINE 20 MG TAB PO SCH ×2 (09:32→20:51)
[2019-11-10] MEDS: METOCLOPRAMIDE 10 MG TAB PO SCH (09:32)
[2019-11-10] MEDS: OSELTAMIVIR PHOSPHATE 75 MG CAP PO SCH ×2 (09:38→20:51)
[2019-11-10] MEDS: CARBAMIDE PEROXIDE 6.5% OT 15 ML BTL OT SCH ×2 (09:39→21:09)
--- NOTE | 2019-11-10 09:40 | NUR ---
ADMINISTERED SCHED MED PRESCRIBED PER MD ORDER. PT TOLERATED WELL. MEDICATION EDUCATION PERFORMED. PT VERBALIZED UNDERSTANDING. SAFETY MEASURES IN PLACE. WILL CONTINUE TO MONITOR
--- NOTE | 2019-11-10 09:54 | NUR ---
RECIEVED CALL FROM LAB WITH A VANC TROUGH RESULT OF 33.6. PHARMACY MADE AWARE. WILL CONTINUE TO MONITOR.
--- NOTE | 2019-11-10 10:37 | NUR ---
* ST NOTE * Pt seen at bedside after receiving clearance from Mika Orlando in pt's room. Pt alert, cooperative and engaged, reporting no c/o pain at this time. Pt's sister and other family member entering room at this time. Pt consenting to evaluation w/family present. Bedside dysphagia and oral mechanism exams completed. See evaluation report for further details. Pt tolerating 5/5 alternating PO trials of regular solid saltine crackers as well as 5/5 alternating PO trials of nectar-thickened apple juice 3-5 CCs at a time via a spoon, all w/o s/s of aspiration or choking. Pt presenting with occasional oral labial leakage of salive between PO administrations out of right side of oral cavity. Pt however reporting no difficulty masticating or swallowing solids at this time, unless they are "too big". Pt and caregiver/sister education completed re: benefits of upgrading pt's liquid consistency to nectar-thick for hydration purposes. Pt and caregiver/sister education also completed re: aspiration precautions and safe swallow compensatory strategies pt and caregivers could utilize to aid pt w/swallow function, w/pt and caregiver/sister verbalizing understanding and agreement w/clinician's recommendations. It is thus recommended pt's PO diet consistency be modified to mechanical soft-chopped textures w/nectar-thickened liquids for all meals w/strict aspiration precautions in place, w/pt and caregiver/sister agreeable. ST to follow up 2x/week for 1 week to further assess pt's tolerance for PO intake and least restrictive PO diet consistency. Pt, caregiver/sister and caregiver/Mika Orlando education completed re: results of evaluation; benefits of receiving skilled TIMBER FALLER services; POC; and prognosis for improvement; with pt, caregiver/sister, and caregiver/[facility] Johanny verbalizing understanding and agreement w/clinician's recommendations. Recommend: - PO DIET CONSISTENCY OF MECHANICAL SOFT-CHOPPED TEXTURES W/NECTAR-THICKENED LIQUIDS for all meals - DO NOT USE A STRAW TO PROVIDE NECTAR-THICKENED LIQUIDS - PLEASE ONLY USE A SPOON OR CUP - PO MEDICATION ADMINISTRATION CRUSHED IN PUREE OR NECTAR-THICKENED TEXTURES - MAINTAIN STRICT ASPIRATION PRECAUTIONS DURING PT'S PO INTAKE 2/2 TO ASPIRATION PNA - Pt requires total assistance w/feeding - FEEDER TO SIT PT UP AT 80-90 DEGREE ANGLE DURING PO INTAKE; FEED PT SLOWLY; ALTERNATE BTWN SOLIDS & LIQUIDS; AND PROVIDE SMALL BITES/SIPS - IF PT PRESENTING W/ S/S OF ASPIRATION DURING PO INTAKE, NSG MAY DOWNGRADE PT'S PO DIET CONSISTENCY TO PUREE TEXTURES W/HONEY-THICKENED LIQUIDS ST to ff 2x/week for 1 week to further assess pt's least restrictive PO diet consistency. NOMS Level 3 Time In/Out 09:45 - 10:15
--- NOTE | 2019-11-10 11:24 | NUR ---
ADMINISTERED SCHED IV FLUID PRESCRIBED PER MD ORDER. PT TOLERATED WELL. MEDICATION EDUCATION PERFORMED. PT VERBALIZED UNDERSTANDING. SAFETY MEASURES IN PLACE. WILL CONTINUE TO MONITOR
[2019-11-10 12:00] VITALS: BP 131/65
--- NOTE | 2019-11-10 12:54 | NUR ---
ADMINISTERED SCHED MED PRESCRIBED PER MD ORDER. PT TOLERATED WELL. MEDICATION EDUCATION PERFORMED. PT VERBALIZED UNDERSTANDING. SAFETY MEASURES IN PLACE. WILL CONTINUE TO MONITOR
--- NOTE | 2019-11-10 15:02 | NUR ---
HOURLY ROUNDING. PT SLEEPING IN BED. RESPONSIVE TO VERBAL AND TACTILE STIMULI. ABLE TO MAKE NEEDS KNOWN. RESPIRATIONS EVEN AND UNLABORED WITH NO SOB OR RESPIRATORY DISTRESS. SKIN WARM AND DRY TO TOUCH. SAFETY MEASURES IN PLACE. WILL CONTINUE TO MONITOR
[2019-11-10 16:00] VITALS: BP 104/53
--- NOTE | 2019-11-10 18:02 | NUR ---
HOURLY ROUNDING. PT RESTING IN BED UPON ARRIVAL. ABLE TO MAKE NEEDS KNOWN. RESPIRATIONS EVEN AND UNLABORED WITH NO SOB OR RESPIRATORY DISTRESS. SKIN WARM AND DRY TO TOUCH. SAFETY MEASURES IN PLACE. WILL CONTINUE TO MONITOR
--- NOTE | 2019-11-10 19:08 | NUR ---
GAVE BEDSIDE REPORT TO NIGHTSHIFT NURSE. PT RESTING IN BED UPON ARRIVAL. ABLE TO MAKE NEEDS KNOWN. RESPIRATIONS EVEN AND UNLABORED WITH NO SOB OR RESPIRATORY DISTRESS. SKIN WARM AND DRY TO TOUCH. SAFETY MEASURES IN PLACE. PT IS STABLE
--- NOTE | 2019-11-10 19:08 | NUR ---
RECIEVED PT. AAOX3 , LEGALLY BLIND , ON MECH . SOFT DIET W/ SAP . NID - O2 SAT WNL , W/ FC DRAINING CLEAR U.O , W/ MIDLINE ON THE XIOMY - IVF INFUSING WELL ./ AT 4LPM/NC , SKIN INTACT . ON SAFETY / FALL PRECAUTION PROTOCOL - BED ALARM ON , POC DISCUSSED AND VERBALIZE FAIR UNDERSTANDING. WILL CONT. TO MONITOR.
[2019-11-10 20:00] VITALS: BP 90/60
--- NOTE | 2019-11-10 23:22 | NUR ---
PAGED DR. Kylie MAX DUE TO PERSISTENT LOW BP 80/50 AND FEVER. - WAITING FOR CALL BACK.
[2019-11-11] MEDS ORDERED: NACL 0.9% 1,000 ML IV ONE ×2 (00:10→00:20)
--- NOTE | 2019-11-11 00:30 | NUR ---
NSS 1 L - BOLUS - GIVEN T.O BT DR. MAX - WILL CONT. TO MONITOR.
[2019-11-11] MEDS: FLUCONAZOLE 200 MG/NS PREMIX 100 ML IV SCH (01:18)
[2019-11-11] MEDS: DEXT 5% / NACL 0.45% 1,000 ML IV SCH ×2 (01:20→23:40)
--- NOTE | 2019-11-11 01:30 | NUR ---
BP RE CHECKED . 90/60 - AFEBRILE - AWAKEABLE - WILL CONT. TO MONITOR.
[2019-11-11 04:00] VITALS: BP 102/67
--- NOTE | 2019-11-11 04:00 | NUR ---
MADE ROUNDS , O2 SAT - WNL , OBEYS COMMANDS , AFEBRILE . BP WNL - WILL CONT. TO MONITOR.
[2019-11-11] MEDS: MEROPENEM 1,000 MG in NACL 0.9% 100 ML IV SCH ×3 (04:54→20:31)
--- NOTE | 2019-11-11 06:46 | NUR ---
MADE ROUNDS . - NO S/SXS OF ACUTE DISTRESS NOTED AT THIS TIME . OS SAT WNL.WILL CONT. TO MONITOR.
--- NOTE | 2019-11-11 07:20 | NUR ---
RECEIVED REPORT FROM NIGHT NURSE. PT IN STABLE CONDITION, WITH EYES CLOSED, AROUSABLE TO SPEECH. NO DISTRESS NOTED, FLACC 0. RESPIRATIONS EVEN AND UNLABORED ON O2 4L NC. IV MIDLINE IN PLACE IN R UA INFUSING PER ORDER PATENT AND ASYMPTOMATIC. SKIN INTACT. WALLS CATH IN PLACE. SAFETY MEASURES IN PLACE, CALL LIGHT WITHIN REACH, BED IN LOW POSITION. WILL CONTINUE TO MONITOR.
[2019-11-11 07:21] LABS: BASOPHILS % (AUTO) 0.2 % (0.0-2.0); EOSINOPHILS # (AUTO) 0.9 K/uL (0-0.4); HEMATOCRIT 32.7 % (36-52); HEMOGLOBIN 10.4 g/dL (12.0-18.0); LYMPHOCYTES # (AUTO) 1.5 K/uL (2.0-11.5); LYMPHOCYTES % (AUTO) 11.5 % (20.5-51.1); MEAN CORPUSCULAR HEMOGLOBIN 27 pg (27-31); MEAN CORPUSCULAR HGB CONC 32 g/dL (33-37); MEAN CORPUSCULAR VOLUME 84.4 fL (80-94); MONOCYTES # (AUTO) 1.2 K/uL (0.8-1.0); MONOCYTES % (AUTO) 8.8 % (1.7-9.3); NEUTROPHILS # (AUTO) 9.6 K/uL (1.8-7.7); NEUTROPHILS % (AUTO) 72.5 % (42.2-75.2); PLATELET COUNT (AUTO) 577 K/uL (140-450); RED BLOOD CELL COUNT(AUTO) 3.87 MIL/uL (4.20-6.10); WHITE BLOOD COUNT (AUTO) 13.2 K/uL (4.8-10.8)
[2019-11-11 07:48] LABS: ANION GAP 12.8 (8-16); CARBON DIOXIDE 24.2 mmol/L (21-32); CREATININE 3.1 mg/dL (0.6-1.3)
[2019-11-11 07:50] LABS: MAGNESIUM 2.2 mg/dL (1.8-2.4); PHOSPHORUS 3.4 mg/dL (2.5-4.9)
[2019-11-11 08:00] VITALS: BP 126/81
--- NOTE | 2019-11-11 08:09 | NUR ---
RECEIVED CALL FROM DR HUFFMAN AND WAS INSTRUCTED TO HOLD DOSE OF [place] AND CALL PHARMACY TO ADJUST PT DOSE OF TAMIFLU WHICH NEEDS TO BE LOWERED DUE TO KIDNEY FUNCTION. WILL FOLLOWUP.
[2019-11-11] MEDS: METOCLOPRAMIDE 10 MG TAB PO SCH (08:42)
[2019-11-11] MEDS: LACTOBACILLUS RHAMNOSUS GG 1 EACH CAP PO SCH (08:43)
[2019-11-11] MEDS: ZINC SULF 220 MG CAP PO SCH (08:43)
[2019-11-11] MEDS: FUROSEMIDE 20 MG/2 ML VIAL IVP SCH (08:43)
[2019-11-11] MEDS: MULTIVITAMIN/MINERALS 1 TAB PO SCH (08:43)
[2019-11-11] MEDS: CARVEDILOL 6.25 MG TAB PO SCH ×2 (08:43→20:40)
[2019-11-11] MEDS: PSYLLIUM 12.2 GM/PKT PO SCH (08:44)
[2019-11-11] MEDS: ATORVASTATIN 20 MG TAB PO SCH (08:44)
[2019-11-11] MEDS: CARBAMIDE PEROXIDE 6.5% OT 15 ML BTL OT SCH ×2 (08:44→20:32)
[2019-11-11] MEDS: FAMOTIDINE 20 MG TAB PO SCH ×2 (08:44→20:31)
--- NOTE | 2019-11-11 09:03 | NUR ---
MEDICATIONS ADMINISTERED PER ORDER. PT TOLERATED WELL, NO DISTRESS NOTED. SAFETY MEASURES IN PLACE. WILL CONTINUE TO MONITOR.
[2019-11-11] MEDS: ALBUTEROL 0.083% 2.5 MG/3 ML NEBU INH PRN ×2 (10:43→16:18)
[2019-11-11] MEDS: IPRATROPIUM 0.02% 0.5 MG/2.5 ML NEBU INH PRN ×2 (10:43→16:18)
--- NOTE | 2019-11-11 11:26 | NUR ---
MIDLINE DRESSING CHANGED AT THIS TIME. PT TOLERATED WELL. SITE PATENT AND ASYMPTOMATIC.
[2019-11-11 12:00] VITALS: BP 110/64
--- NOTE | 2019-11-11 12:14 | NUR ---
MEDICATIONS ADMINISTERED PER ORDER. PT IN BED, NO DISTRESS NOTED, DENIES PAIN. SAFETY MEASURES IN PLACE. CALL LIGHT WITHIN REACH, WILL CONTINUE TO MONITOR.
--- NOTE | 2019-11-11 14:42 | NUR ---
PT IN BED ASLEEP, NO DISTRESS NOTED, FLACC 0. RESPIRATIONS EVEN AND UNLABORED ON O2 4L NC. SAFETY MEASURES IN PLACE, BED IN LOW POSITION. WILL CONTINUE TO MONITOR.
[2019-11-11 16:00] VITALS: BP 87/49
--- NOTE | 2019-11-11 17:01 | NUR ---
PT IN BED ASLEEP. NO DISTRESS NOTED, FLACC 0. SAFETY MEASURES IN PLACE, CALL LIGHT WITHIN REACH. WILL CONTINUE TO MONITOR.
--- NOTE | 2019-11-11 19:15 | NUR ---
REPORT GIVEN TO NIGHT NURSE FOR CONTINUITY OF CARE.
--- NOTE | 2019-11-11 19:20 | NUR ---
RECEIVED PT SLEEPING, EASILY AROUSABLE, VERBALLY RESPONSIVE, HX OF CEREBRAL PALSY, ABLE TO MAKE NEEDS KNOWN AND CAN FOLLOW COMMANDS, VITAL SIGNS TAKEN, BP ON THE LOW SIDE BUT STABLE, ON O2 AT 3L NC, DENIES ANY PAIN, NO SOB NOTED, IVF INFUSING WELL VIA RT UA MIDLINE, DRESSING DRY AND INTACT, WALLS CATH TO GRAVITY WITH YELLOW OUTPUT, MAINTAINED ON DROPLET PRECAUTION, SAFETY MEASURES IN PLACE, FREQUENT ROUNDS WILL BE MADE, CALL LIGHT WITHIN REACH.
[2019-11-11 20:00] VITALS: BP 91/50
--- NOTE | 2019-11-11 20:40 | NUR ---
DUE PO MED CRUSHED AND GIVEN WITH APPLE SAUCE, TOLERATED WELL, REPOSITIONED Q2H AND OFFLOAD PRESSURE AREAS, ALL NEEDS ATTENDED.
[2019-11-12] VITALS: BP 103/64
--- NOTE | 2019-11-12 | NUR ---
PT SLEEPING, EASILY AROUSABLE, VERBALLY RESPONSIVE, VITAL SIGNS STABLE, DENIES ANY PAIN, NO SOB NOTED, OFFERED APPLE JUICE, TOLERATED WELL, IVF INFUSING WELL, CONTINUE TO MONITOR CLOSELY.
[2019-11-12] MEDS: FLUCONAZOLE 200 MG/NS PREMIX 100 ML IV SCH (00:26)
[2019-11-12 02:39] LABS: APPEARANCE,URINE CLEAR (CLEAR); BILIRUBIN,URINE NEGATIVE (NEGATIVE); BLOOD, URINE 1+ (NEGATIVE); COLOR,URINE YELLOW (YELLOW); LEUKOCYTE ESTERASE ,URINE NEGATIVE (NEGATIVE); NITRITE, URINE NEGATIVE (NEGATIVE); UGLUCOSE NEGATIVE (NEGATIVE)
--- NOTE | 2019-11-12 03:50 | NUR ---
PT SLEEPING, EASILY AROUSABLE, VITAL SIGNS STABLE, NO SIGNS OF PAIN OR SOB, IVF INFUSING WELL, MONITORED CLOSELY
[2019-11-12 04:00] VITALS: BP 113/66
[2019-11-12] MEDS: MEROPENEM 1,000 MG in NACL 0.9% 100 ML IV SCH ×3 (04:14→21:24)
[2019-11-12 04:34] LABS: WBC,URINE 0-5 /HPF (0-5)
--- NOTE | 2019-11-12 07:07 | NUR ---
PT SLEEPING, NO SIGNS OF DISTRESS, REPORT GIVEN TO TIRSO RAINEY FOR CONTINUITY OF CARE.
[2019-11-12 07:09] LABS: BASOPHILS # (AUTO) 0.1 K/uL (0.00-0.22); BASOPHILS % (AUTO) 0.6 % (0.0-2.0); EOSINOPHILS # (AUTO) 0.9 K/uL (0-0.4); EOSINOPHILS % (AUTO) 8.1 % (0.0-4.0); HEMATOCRIT 30.7 % (36-52); HEMOGLOBIN 9.9 g/dL (12.0-18.0); LYMPHOCYTES # (AUTO) 1.7 K/uL (2.0-11.5); LYMPHOCYTES % (AUTO) 15.5 % (20.5-51.1); MEAN CORPUSCULAR HEMOGLOBIN 27 pg (27-31); MEAN CORPUSCULAR HGB CONC 32 g/dL (33-37); MEAN CORPUSCULAR VOLUME 84.3 fL (80-94); MONOCYTES # (AUTO) 1.2 K/uL (0.8-1.0); MONOCYTES % (AUTO) 11.4 % (1.7-9.3); NEUTROPHILS % (AUTO) 64.4 % (42.2-75.2); PLATELET COUNT (AUTO) 509 K/uL (140-450); RED BLOOD CELL COUNT(AUTO) 3.64 MIL/uL (4.20-6.10); WHITE BLOOD COUNT (AUTO) 10.9 K/uL (4.8-10.8)
--- NOTE | 2019-11-12 07:12 | NUR ---
RECEIVED BEDSIDE REPORT FROM NIGHTSHIFT NURSE. PT RESTING IN BED. ABLE TO MAKE NEEDS KNOWN. RESPIRATIONS EVEN AND UNLABORED WITH NO SOB OR RESPIRATORY DISTRESS. SKIN WARM AND DRY TO TOUCH. WALLS CATHETER IN PLACE AND DRAINING CLEAR, YELLOW URINE. MIDLINE DOUBLE LUMEN IS CLEAN, DRY, AND INTACT. SAFETY MEASURES IN PLACE. WILL CONTINUE TO MONITOR.
[2019-11-12 07:22] LABS: ANION GAP 11.5 (8-16); CARBON DIOXIDE 26.3 mmol/L (21-32); CREATININE 2.8 mg/dL (0.6-1.3); POTASSIUM 3.8 mmol/L (3.5-5.1)
[2019-11-12 08:00] VITALS: BP 83/44
[2019-11-12 08:04] LABS: MAGNESIUM 2.1 mg/dL (1.8-2.4)
[2019-11-12] MEDS: CARVEDILOL 6.25 MG TAB PO SCH ×2 (09:00→21:26)
[2019-11-12] MEDS: FAMOTIDINE 20 MG TAB PO SCH ×2 (09:13→21:24)
--- NOTE | 2019-11-12 09:13 | NUR ---
ADMINISTERED SCHED MED PRESCRIBED PER MD ORDER. PT TOLERATED WELL. MEDICATION EDUCATION PERFORMED. PT VERBALIZED UNDERSTANDING. SAFETY MEASURES IN PLACE. WILL CONTINUE TO MONITOR.
[2019-11-12] MEDS: LACTOBACILLUS RHAMNOSUS GG 1 EACH CAP PO SCH (09:14)
[2019-11-12] MEDS: MULTIVITAMIN/MINERALS 1 TAB PO SCH (09:15)
[2019-11-12] MEDS: ZINC SULF 220 MG CAP PO SCH (09:15)
[2019-11-12] MEDS: METOCLOPRAMIDE 10 MG TAB PO SCH (09:16)
[2019-11-12] MEDS: SENNA 8.6 MG TAB PO PRN ×2 (09:17→21:24)
[2019-11-12] MEDS: PSYLLIUM 12.2 GM/PKT PO SCH (09:23)
[2019-11-12] MEDS: CARBAMIDE PEROXIDE 6.5% OT 15 ML BTL OT SCH ×2 (09:32→21:25)
[2019-11-12] MEDS: ATORVASTATIN 20 MG TAB PO SCH (09:47)
--- NOTE | 2019-11-12 11:32 | NUR ---
PT RESTING IN BED. ABLE TO MAKE NEEDS KNOWN. RESPIRATIONS EVEN AND UNLABORED WITH NO SOB OR RESPIRATORY DISTRESS. SKIN WARM AND DRY TO TOUCH. SAFETY MEASURES IN PLACE. WILL CONTINUE TO MONITOR.
[2019-11-12 12:00] VITALS: BP 106/65
[2019-11-12] MEDS ORDERED: VANCOMYCIN 1,000 MG in DEXTROSE 5% 250 ML IV SCH (12:00)
--- NOTE | 2019-11-12 12:59 | NUR ---
ADMINISTERED SCHED MED PRESCRIBED PER MD ORDER. PT TOLERATED WELL. MEDICATION EDUCATION PERFORMED. PT VERBALIZED UNDERSTANDING. SAFETY MEASURES IN PLACE. WILL CONTINUE TO MONITOR.
--- NOTE | 2019-11-12 13:00 | NUR ---
ADMINISTERED SCHED MED PRESCRIBED PER MD ORDER. PT TOLERATED WELL. MEDICATION EDUCATION PERFORMED. PT VERBALIZED UNDERSTANDING. SAFETY MEASURES IN PLACE. WILL CONTINUE TO MONITOR.
[2019-11-12] MEDS: ALBUTEROL 0.083% 2.5 MG/3 ML NEBU INH PRN (15:39)
[2019-11-12] MEDS: IPRATROPIUM 0.02% 0.5 MG/2.5 ML NEBU INH PRN (15:39)
[2019-11-12 16:00] VITALS: BP 109/71
[2019-11-12] MEDS: DEXT 5% / NACL 0.45% 1,000 ML IV SCH (18:37)
--- NOTE | 2019-11-12 18:37 | NUR ---
ADMINISTERED SCHED IVF PRESCRIBED PER MD ORDER. PT TOLERATED WELL. MEDICATION EDUCATION PERFORMED. PT VERBALIZED UNDERSTANDING. SAFETY MEASURES IN PLACE. WILL CONTINUE TO MONITOR.
--- NOTE | 2019-11-12 19:02 | NUR ---
ENDORSED AT BEDSIDE TO NIGHTSHIFT NURSE. PT RESTING IN BED. ABLE TO MAKE NEEDS KNOWN. RESPIRATIONS EVEN AND UNLABORED WITH NO SOB OR RESPIRATORY DISTRESS. SKIN WARM AND DRY TO TOUCH. SAFETY MEASURES IN PLACE. PT IS STABLE.
--- NOTE | 2019-11-12 19:10 | NUR ---
RECEIVED PT SLEEPING, EASILY AROUSABLE, VERBALLY RESPONSIVE, HX OF CEREBRAL PALSY, ABLE TO MAKE NEEDS KNOWN AND CAN FOLLOW COMMANDS, VITAL SIGNS TAKEN, ON O2 AT 3L NC, DENIES ANY PAIN, NO SOB NOTED, IVF INFUSING WELL VIA RT UA MIDLINE, DRESSING DRY AND INTACT, WALLS CATH TO GRAVITY WITH YELLOW OUTPUT, MAINTAINED ON DROPLET PRECAUTION, SAFETY MEASURES IN PLACE, FREQUENT ROUNDS WILL BE MADE, CALL LIGHT WITHIN REACH.
--- NOTE | 2019-11-12 21:07 | NUR ---
PT SEEN AND ASSESS AT THIS TIME. PT IN NO RESPIRATORY DISTRESS AT THIS TIME; COARSE BREATH SOUNDS; HR 84, RR 18, SP02 98% ON 3L NC. NO INDICATION FOR HHN PRN TX AT THIS TIME. WILL CONTINUE TO MONITOR PT.
--- NOTE | 2019-11-12 21:30 | NUR ---
DUE PO MEDS CRUSHED AND GIVEN WITH APPLE SAUCE, TOLERATED WELL, DUE MERREM ADMINISTERED, REPOSITIONED Q2H AND OFFLOAD PRESSURE AREAS, ALL NEEDS ATTENDED.
[2019-11-12] MEDS: ACETAMINOPHEN 325 MG TAB PO PRN (23:30)
--- NOTE | 2019-11-12 23:30 | NUR ---
PT SLEEPING, EASILY AROUSABLE, VITAL SIGNS TAKEN, ORAL TEMP-101.3, NO C/O PAIN, MEDICATED WITH TYLENOL PO, IVF INFUSING WELL, CONTINUE TO MONITOR CLOSELY.
[2019-11-13] VITALS: BP 130/78
--- NOTE | 2019-11-13 01:24 | NUR ---
PT SEEN SLEEPING, EASILY AROUSABLE, ORAL TEMP RECHECKED-99.1, MONITORED CLOSELY.
--- NOTE | 2019-11-13 03:30 | NUR ---
PT WITH SOFT PASTY BROWN STOOL, PERINEAL CARE DONE, CONTINUE TO REPOSITION Q2H AND OFFLOAD PRESSURE AREAS.
[2019-11-13] MEDS: MEROPENEM 1,000 MG in NACL 0.9% 100 ML IV SCH ×3 (04:16→20:37)
--- NOTE | 2019-11-13 06:00 | NUR ---
PT SLEEPING, NO SIGNS OF DISTRESS, CONTINUE ON O2 3L NC, IVF INFUSING WELL, MONITORED CLOSELY.
--- NOTE | 2019-11-13 07:27 | NUR ---
PT SLEEPING, NO SIGNS OF DISTRESS, REPORT GIVEN TO TIRSO SOLOMON FOR CONTINUITY OF CARE.
--- NOTE | 2019-11-13 07:30 | NUR ---
SHIFT REPORT RECEIVED FROM ASSISTANT BRAND MANAGER NURSE. PT IS RESTING IN BED AT THIS TIME. NO COMPLAINS OF PAIN. CALL LIGHT IN REACH.
[2019-11-13 07:54] LABS: BASOPHILS % (AUTO) 0.4 % (0.0-2.0); EOSINOPHILS # (AUTO) 0.7 K/uL (0-0.4); EOSINOPHILS % (AUTO) 8.1 % (0.0-4.0); HEMATOCRIT 30.8 % (36-52); HEMOGLOBIN 10.1 g/dL (12.0-18.0); LYMPHOCYTES # (AUTO) 1.3 K/uL (2.0-11.5); LYMPHOCYTES % (AUTO) 14.7 % (20.5-51.1); MEAN CORPUSCULAR HEMOGLOBIN 27 pg (27-31); MEAN CORPUSCULAR HGB CONC 33 g/dL (33-37); MEAN CORPUSCULAR VOLUME 83.2 fL (80-94); MONOCYTES # (AUTO) 1.1 K/uL (0.8-1.0); MONOCYTES % (AUTO) 12.2 % (1.7-9.3); NEUTROPHILS # (AUTO) 5.9 K/uL (1.8-7.7); NEUTROPHILS % (AUTO) 64.6 % (42.2-75.2); PLATELET COUNT (AUTO) 486 K/uL (140-450); RED BLOOD CELL COUNT(AUTO) 3.71 MIL/uL (4.20-6.10); RED CELL DISTRIBUTION WIDTH 15.1 % (11.6-13.7); WHITE BLOOD COUNT (AUTO) 9.2 K/uL (4.8-10.8)
[2019-11-13 08:00] VITALS: BP 103/69
[2019-11-13 08:08] LABS: ALBUMIN 1.7 g/dL (3.4-5.0); ANION GAP 10.4 (8-16); CARBON DIOXIDE 26.2 mmol/L (21-32); CREATININE 2.4 mg/dL (0.6-1.3); MAGNESIUM 1.9 mg/dL (1.8-2.4); PHOSPHORUS 2.4 mg/dL (2.5-4.9); POTASSIUM 3.6 mmol/L (3.5-5.1); TOTAL BILIRUBIN 0.3 mg/dL (0.0-1.0)
[2019-11-13] MEDS ORDERED: VANCOMYCIN PER PHARMACY MC PRN (09:20)
[2019-11-13] MEDS: ZINC SULF 220 MG CAP PO SCH (09:25)
[2019-11-13] MEDS: POLYETHYLENE GLYCOL 17 GM/PKT PO PRN (09:25)
[2019-11-13] MEDS: LACTOBACILLUS RHAMNOSUS GG 1 EACH CAP PO SCH (09:25)
[2019-11-13] MEDS: ATORVASTATIN 20 MG TAB PO SCH (09:25)
[2019-11-13] MEDS: SENNA 8.6 MG TAB PO PRN ×2 (09:26→20:38)
[2019-11-13] MEDS: FAMOTIDINE 20 MG TAB PO SCH ×2 (09:26→20:38)
[2019-11-13] MEDS: MULTIVITAMIN/MINERALS 1 TAB PO SCH (09:26)
[2019-11-13] MEDS: METOCLOPRAMIDE 10 MG TAB PO SCH (09:26)
[2019-11-13] MEDS: CARVEDILOL 6.25 MG TAB PO SCH ×2 (09:27→20:38)
--- NOTE | 2019-11-13 09:30 | NUR ---
PT IS IN BED ALERT AND RESPONSIVE. NO DISTRESS NOTED. NO COMPLAINS OF PAIN. CALL LIGHT IN REACH.
[2019-11-13] MEDS: PSYLLIUM 12.2 GM/PKT PO SCH (09:45)
[2019-11-13] MEDS: CARBAMIDE PEROXIDE 6.5% OT 15 ML BTL OT SCH ×2 (09:45→22:41)
[2019-11-13] MEDS ORDERED: SODIUM PHOSPHATE 15 MMOLE in NACL 0.9% 250 ML IV SCH (11:00)
--- NOTE | 2019-11-13 12:35 | NUR ---
PT IS IN BED ALERT AND AWAKE AND RESPONSIVE. NO DISTRESS NOTED. NO COMPLAINS OF PAIN. CALL LIGHT IN REACH.
--- NOTE | 2019-11-13 14:06 | NUR ---
11/13/19 RD INITIAL ASSESSMENT COMPLETED PLEASE REFER TO NUTRITION ASSESSMENT UNDER CARE ACTIVITY FOR ESTIMATED NUTRITIONAL NEEDS. 1. CONTINUE CARDIAC MECHANICAL SOFT DIET WITH NECTAR THICK LIQUIDS TOLERATED 2. ENCOURAGE INCREASING PO INTAKE AND CONTINUE PROVIDING ASSISTANCE WITH MEALS 3. RD TO FOLLOW-UP 2-3 DAYS, HIGH RISK JAYDA GUEVARA, DANIELA
--- NOTE | 2019-11-13 14:24 | NUR ---
*S.T. TREATMENT NOTE* S: Pt seen at bedside w/ MICROSOFT SYSTEMS ENGINEER Julianna feeding pt lunch tray. Per MICROSOFT SYSTEMS ENGINEER, pt is drowsy and she suspected pt is falling asleep in between bites. It was advised to her that if pt is lethargic, to discontinue feeding and hold tray for later time. Pt was also not fully upright and MICROSOFT SYSTEMS ENGINEER was educated towards positioning HOB as close to 90 degrees as possible. O: Pt observed chewing mechanical soft chopped food. Delayed pharyngeal swallow response observed. No cough or throat clear or other overt s/s aspiration observed. A: Pt continues to demonstrate mild oropharyngeal dysphagia, but appears to be tolerating recommended diet textures at this time. P: Continue current diet textures w/ 1:1 feeding aid and aspiration precautions. DC to [facility] at this time. Time [id number]
[2019-11-13] MEDS: DEXT 5% / NACL 0.45% 1,000 ML IV SCH (14:36)
--- NOTE | 2019-11-13 15:30 | NUR ---
PT IS RESTING IN BED. NO DISTRESS NOTED. NO COMPLAINS OF PAIN. WILL CONTINUE TO MONITOR. CALL LIGHT IN REACH.
[2019-11-13 16:00] VITALS: BP 92/53
[2019-11-13] MEDS: ALBUTEROL 0.083% 2.5 MG/3 ML NEBU INH PRN (16:28)
[2019-11-13] MEDS: IPRATROPIUM 0.02% 0.5 MG/2.5 ML NEBU INH PRN (16:28)
--- NOTE | 2019-11-13 16:28 | NUR ---
SATURATION 97% ON SUPPLEMENTAL OXYGEN AT 3 LPM VIA NC POST HHN THERAPY TITRATED FIO2 TO 2 LPM JUANITO/TIRSO NOTIFIED
--- NOTE | 2019-11-13 17:55 | NUR ---
PT IS RESTING IN BED. NO DISTRESS NOTED. NO COMPLAINS OF PAIN. BLOOD PRESSURE AT 92/53. WILL CONTINUE TO MONITOR. CALL LIGHT IN REACH.
--- NOTE | 2019-11-13 19:25 | NUR ---
SHIFT REPORT GIVEN TO BLOCKER AND CUTTER CONTACT LENS NURSE. PT IS RESTING IN BED IN STABLE CONDITION.. CALL LIGHT IN REACH.
--- NOTE | 2019-11-13 19:25 | NUR ---
RECEIVED PATIENT FROM AM SHIFT NURSE IN STABLE CONDITION FOR CONTINUITY OF CARE. TELE PATIENT, ABLE TO MAKE NEEDS KNOWN. RESPIRATIONS EVEN, UNLABORED. CONTINUES ON O2 3LPM NC. PICC TO RIGHT UPPER ARM CLEAN/DRY/INTACT, INFUSING FLUIDS WELL. NO C/O PAIN. NO S/SX ACUTE DISTRESS. ISOLATION PRECAUTIONS OBSERVED. CALL LIGHT WITHIN REACH. WILL CONTINUE TO MONITOR.
--- NOTE | 2019-11-13 20:57 | NUR ---
PT SEEN AT THIS TIME. PT IN NO APPARENT RESPIRATORY DISTRESS NOTED AT THIS TIME; RALES BREATH SOUNDS; HR 75, RR 16, SP02 97% ON 2L NC. NO INDICATION FOR HHN PRN TX AT THIS TIME. WILL CONTINUE TO MONITOR PT.
--- NOTE | 2019-11-13 21:00 | NUR ---
MADE ROUNDS. PATIENT CONTINUES IN STABLE CONDITION. NO C/O PAIN. NO S/SX ACUTE DISTRESS NOTED. CALL LIGHT WITHIN REACH. WILL CONTINUE TO MONITOR.
--- NOTE | 2019-11-13 23:00 | NUR ---
MADE ROUNDS. PATIENT CONTINUES IN STABLE CONDITION. NO C/O PAIN. NO S/SX ACUTE DISTRESS NOTED. CALL LIGHT WITHIN REACH. WILL CONTINUE TO MONITOR.
[2019-11-14] VITALS: BP 127/74
--- NOTE | 2019-11-14 01:00 | NUR ---
PATIENT ASLEEP AND IN STABLE CONDITION. NO C/O PAIN. NO S/SX ACUTE DISTRESS. CALL LIGHT WITHIN REACH. WILL CONTINUE TO MONITOR.
--- NOTE | 2019-11-14 03:03 | NUR ---
PATIENT IS ASLEEP AND IN STABLE CONDITION. NO C/O PAIN. NO S/SX ACUTE DISTRESS. CALL LIGHT WITHIN REACH. WILL CONTINUE TO MONITOR.
--- NOTE | 2019-11-14 07:30 | NUR ---
RECEIVED REPORT FROM CUSTOMER EXPERIENCE STRATEGIST NURSE AT BEDSIDE FOR CONTINUITY OF CARE. PATIENT SLEEPING COMFORTABLY IN BED, RESPIRATIONS EVEN AND UNLABORED ON O2 VIA NC, FLACC-0. UPDATED BOARD. IV SITE INTACT, PATENT, ASYMPTOMATIC, INFUSING IVF WELL. SAFETY PRECAUTIONS IN PLACE, BED IN LOWEST POSITION WITH ALARM AND BRAKES ON, CALL LIGHT WITHIN REACH, WILL CONTINUE TO MONITOR PATIENT.
[2019-11-14 08:00] VITALS: BP 101/65
--- NOTE | 2019-11-14 08:20 | NUR ---
PATIENT ASSISTED WITH EATING BREAKFAST. NO S/S OF SOB OR DISTRESS AT THIS TIME. WILL CONTINUE TO MONITOR PATIENT.
[2019-11-14] MEDS: CARBAMIDE PEROXIDE 6.5% OT 15 ML BTL OT SCH ×2 (10:30→21:19)
[2019-11-14] MEDS: PSYLLIUM 12.2 GM/PKT PO SCH (10:30)
[2019-11-14] MEDS: DEXT 5% / NACL 0.45% 1,000 ML IV SCH ×2 (10:36→14:50)
[2019-11-14] MEDS: FAMOTIDINE 20 MG TAB PO SCH ×2 (10:44→21:18)
[2019-11-14] MEDS: METOCLOPRAMIDE 10 MG TAB PO SCH (10:44)
[2019-11-14] MEDS: ZINC SULF 220 MG CAP PO SCH (10:44)
[2019-11-14] MEDS: MULTIVITAMIN/MINERALS 1 TAB PO SCH (10:44)
[2019-11-14] MEDS: LACTOBACILLUS RHAMNOSUS GG 1 EACH CAP PO SCH (10:44)
[2019-11-14] MEDS: ATORVASTATIN 20 MG TAB PO SCH (10:45)
[2019-11-14] MEDS: CARVEDILOL 6.25 MG TAB PO SCH ×2 (10:45→21:18)
--- NOTE | 2019-11-14 10:45 | NUR ---
MEDICATIONS CRUSHED AND GIVEN TO PATIENT WITH APPLESAUCE AND NECTAR THICK LIQUID. PATIENT TOLERATED THEM WELL. PATIENT HAS NO COMPLAINTS AT THIS TIME. WILL CONTINUE TO MONITOR PATIENT.
[2019-11-14 10:53] LABS: ANION GAP 10.2 (8-16); BASOPHILS % (AUTO) 0.3 % (0.0-2.0); CARBON DIOXIDE 27.3 mmol/L (21-32); EOSINOPHILS # (AUTO) 0.7 K/uL (0-0.4); EOSINOPHILS % (AUTO) 8.3 % (0.0-4.0); HEMATOCRIT 31.4 % (36-52); HEMOGLOBIN 10.2 g/dL (12.0-18.0); LYMPHOCYTES # (AUTO) 2.2 K/uL (2.0-11.5); LYMPHOCYTES % (AUTO) 24.4 % (20.5-51.1); MAGNESIUM 1.9 mg/dL (1.8-2.4); MEAN CORPUSCULAR HEMOGLOBIN 27 pg (27-31); MEAN CORPUSCULAR HGB CONC 33 g/dL (33-37); MONOCYTES # (AUTO) 1.4 K/uL (0.8-1.0); MONOCYTES % (AUTO) 15.8 % (1.7-9.3); NEUTROPHILS # (AUTO) 4.6 K/uL (1.8-7.7); NEUTROPHILS % (AUTO) 51.2 % (42.2-75.2); PHOSPHORUS 2.4 mg/dL (2.5-4.9); PLATELET COUNT (AUTO) 496 K/uL (140-450); POTASSIUM 3.5 mmol/L (3.5-5.1); RED BLOOD CELL COUNT(AUTO) 3.78 MIL/uL (4.20-6.10); RED CELL DISTRIBUTION WIDTH 14.9 % (11.6-13.7); WHITE BLOOD COUNT (AUTO) 8.9 K/uL (4.8-10.8)
[2019-11-14 16:00] VITALS: BP 119/70
--- NOTE | 2019-11-14 17:05 | NUR ---
PATIENT HAD BM, PATIENT CLEANED CHANGED AND REPOSITIONED FOR COMFORT AND TO OFFSET PRESSURE AREAS.WILL CONTINUE TO MONITOR PATIENT.
[2019-11-14] MEDS ORDERED: ATOR20TA40 PO (17:46)
[2019-11-14] MEDS ORDERED: CARV6.252 PO (17:46)
[2019-11-14] MEDS ORDERED: SODIUM PHOSPHATE 15 MMOLE in NACL 0.9% 250 ML IV SCH (18:00)
--- NOTE | 2019-11-14 18:00 | NUR ---
IV MEDICATION DUE AT 1800 NOT GIVEN AT THIS TIME. NO MEDICATION IN BIN. WILL FOLLOW UP WITH PHARMACY.
--- NOTE | 2019-11-14 19:30 | NUR ---
RECEIVED BEDSIDE REPORT FROM DAY SHIFT NURSE. PATIENT IS ASLEEP AROUSABLE BY TOUCH. RESPIRATION EVEN UNLABORED ON 2L NC O2. NO DISTRESS NOTED. SKIN IS WARM AND DRY. RIGHT UPPER PICC LINE NOTED. WALLS CATHETER DRAINING YELLOW URINE NOTED. PLAN OF CARE UP TO DATE. ALL SAFETY MEASURES IN PLACE. BED IS AT LOW POSITION. CALL LIGHT WITHIN REACH.
--- NOTE | 2019-11-14 20:10 | NUR ---
INITIAL ASSESSMENT DONE. VITALS WERE TAKEN. PATIENT IN STABLE CONDITION. NO DISTRESS NOTED. WILL CONTINUE TO MONITOR.
[2019-11-14] MEDS: SENNA 8.6 MG TAB PO PRN (21:19)
--- NOTE | 2019-11-14 21:20 | NUR ---
ALL SCHEDULED MEDS WERE GIVEN PER ORDER. NO ASE NOTED. WILL CONTINUE TO MONITOR.
--- NOTE | 2019-11-14 22:19 | NUR ---
CHECKED ON PATIENT. PATIENT SLEEPING RESPIRATION EVEN UNLABORED ON 2L NC O2. NO DISTRESS NOTED. WILL CONTINUE TO MONITOR.
[2019-11-15] VITALS: BP 121/68
--- NOTE | 2019-11-15 00:34 | NUR ---
VITALS WERE TAKEN. PATIENT IN STABLE CONDITION. NO DISTRESS NOTED. WILL CONTINUE TO MONITOR.
--- NOTE | 2019-11-15 02:19 | NUR ---
CHECKED PATIENT. PATIENT SLEEPING RESPIRATION EVEN UNLABORED ON 2L NC O2. NO DISTRESS NOTED. WILL CONTINUE TO MONITOR.
--- NOTE | 2019-11-15 04:56 | NUR ---
PROVIDED PATIENT PERICARE AND WALLS CARE. PATIENT TOLERATED IT WELL.
--- NOTE | 2019-11-15 04:57 | NUR ---
PATIENT SLEEPING RESPIRATION EVEN UNLABORED ON ROOM AIR. NO DISTRESS NOTED. WILL CONTINUE TO MONITOR. Addendum: 11/15/19 at 0458 by Tim West RN WRONG PATIENT
[2019-11-15 07:06] LABS: BASOPHILS % (AUTO) 0.3 % (0.0-2.0); EOSINOPHILS # (AUTO) 0.5 K/uL (0-0.4); EOSINOPHILS % (AUTO) 6.2 % (0.0-4.0); HEMOGLOBIN 10.3 g/dL (12.0-18.0); LYMPHOCYTES # (AUTO) 2.1 K/uL (2.0-11.5); LYMPHOCYTES % (AUTO) 24.7 % (20.5-51.1); MEAN CORPUSCULAR HEMOGLOBIN 27 pg (27-31); MEAN CORPUSCULAR HGB CONC 32 g/dL (33-37); MONOCYTES # (AUTO) 1.2 K/uL (0.8-1.0); MONOCYTES % (AUTO) 14.5 % (1.7-9.3); NEUTROPHILS # (AUTO) 4.5 K/uL (1.8-7.7); NEUTROPHILS % (AUTO) 54.3 % (42.2-75.2); PLATELET COUNT (AUTO) 502 K/uL (140-450); RED BLOOD CELL COUNT(AUTO) 3.85 MIL/uL (4.20-6.10); RED CELL DISTRIBUTION WIDTH 14.8 % (11.6-13.7); WHITE BLOOD COUNT (AUTO) 8.3 K/uL (4.8-10.8)
--- NOTE | 2019-11-15 07:21 | NUR ---
ENDORSED PATIENT TO DAY SHIFT NURSE. PATIENT IS IN STABLE CONDITION.
[2019-11-15 07:36] LABS: ANION GAP 10.5 (8-16); CARBON DIOXIDE 28.1 mmol/L (21-32); CREATININE 1.7 mg/dL (0.6-1.3); POTASSIUM 3.6 mmol/L (3.5-5.1)
--- NOTE | 2019-11-15 07:36 | NUR ---
RECEIVED REPORT FROM THERMODYNAMICS TEACHER NURSE AT BEDSIDE FOR CONTINUITY OF CARE. PATIENT SLEEPING COMFORTABLY IN BED, RESPIRATIONS EVEN AND UNLABORED ON O2 VIA NC, FLACC-0. UPDATED BOARD. IV SITE INTACT, PATENT, ASYMPTOMATIC, INFUSING IVF WELL. SAFETY PRECAUTIONS IN PLACE, BED IN LOWEST POSITION WITH ALARM AND BRAKES ON, CALL LIGHT WITHIN REACH, WILL MONITOR PATIENT CLOSELY.
[2019-11-15 08:05] VITALS: BP 135/78
--- NOTE | 2019-11-15 08:42 | NUR ---
ADMIN PT MEDS. PT TOLERATED WELL. ALL NEEDS MET. WILL CONTINUE TO ROUND ON PT.
[2019-11-15] MEDS: ZINC SULF 220 MG CAP PO SCH (09:00)
[2019-11-15 09:45] LABS: MAGNESIUM 1.9 mg/dL (1.8-2.4); PHOSPHORUS 3.4 mg/dL (2.5-4.9)
[2019-11-15] MEDS: LACTOBACILLUS RHAMNOSUS GG 1 EACH CAP PO SCH (09:58)
[2019-11-15] MEDS: CARVEDILOL 6.25 MG TAB PO SCH ×2 (09:58→20:32)
[2019-11-15] MEDS: CARBAMIDE PEROXIDE 6.5% OT 15 ML BTL OT SCH ×2 (09:58→20:32)
[2019-11-15] MEDS: PSYLLIUM 12.2 GM/PKT PO SCH (09:59)
[2019-11-15] MEDS: METOCLOPRAMIDE 10 MG TAB PO SCH (09:59)
[2019-11-15] MEDS: ATORVASTATIN 20 MG TAB PO SCH (09:59)
[2019-11-15] MEDS: MULTIVITAMIN/MINERALS 1 TAB PO SCH (09:59)
[2019-11-15] MEDS: FAMOTIDINE 20 MG TAB PO SCH ×2 (09:59→20:32)
--- NOTE | 2019-11-15 11:41 | NUR ---
PT [id number] IN BED. ALL NEEDS MET. WILL CONTINUE TO ROUND ON PT. BED IN LOW POSITION, CALL LIGHT WITHIN REACH.
--- NOTE | 2019-11-15 13:59 | NUR ---
PT RESTING IN BED. ALL NEEDS MET. WILL CONTINUE TO ROUND ON PT.
--- NOTE | 2019-11-15 15:42 | NUR ---
PT ASLEEP. ALL NEEDS MET. WILL CONTINUE TO ROUND ON PT.
[2019-11-15 16:00] VITALS: BP 118/73
--- NOTE | 2019-11-15 17:36 | NUR ---
PT RESTING IN BED. ALL NEEDS MET.
--- NOTE | 2019-11-15 19:20 | NUR ---
ENDORSED PT TO HUMAN RESOURCE MANAGEMENT INSTRUCTOR FOR CONTINUITY OF CARE. PT IN STABLE CONDITION AT THIS TIME.
--- NOTE | 2019-11-15 19:21 | NUR ---
RECEIVED BEDSIDE REPORT FROM DAY SHIFT NURSE. PATIENT IS ASLEEP AROUSABLE BY TOUCH. RESPIRATION EVEN UNLABORED ON RA O2 94% RR 18. NO DISTRESS NOTED. SKIN IS WARM AND DRY. RIGHT UPPER PICC LINE NOTED. WALLS CATHETER DRAINING YELLOW URINE NOTED. PLAN OF CARE UP TO DATE. ALL SAFETY MEASURES IN PLACE. BED IS AT LOW POSITION. CALL LIGHT WITHIN REACH.
[2019-11-15] MEDS ORDERED: CRUSHER, PILL MC ONE (20:28)
--- NOTE | 2019-11-15 20:32 | NUR ---
VSS. PT IS VERY LETHARGY. EASILY AROUSABLE BY NAME BUT DROWSY. SAT 94%-95% ON RA. TINO MEDICATIONS CRUSHED AND GIVEN WITH APPLESAUCE. ASPIRATION PRECAUTIONS IN PLACE. PT TOLERATED WELL. SAFETY MEASURES ARE IN PLACE. CALL LIGHT IS WITHIN REACH.
--- NOTE | 2019-11-15 22:01 | NUR ---
PT IS SLEEPING COMFORTABLY IN BED WITH EYES CLOSED. PT REMAINS ON ROOM AIR SAT WELL 94%. RESPIRATIONS ARE EQUAL AND UNLABORED. ALL NEEDS MET AT THIS TIME. CALL LIGHT IS WITHIN REACH.
[2019-11-16] VITALS: BP 122/76
--- NOTE | 2019-11-16 00:15 | NUR ---
VITAL SIGNS ARE WITHIN NORMAL LIMITS. ALL NEEDS MET AT THIS TIME. CALL LIGHT IS WITHIN REACH. WILL CONTINUE TO MONITOR.
--- NOTE | 2019-11-16 02:30 | NUR ---
PATIENT IS SLEEPING COMFORTABLY IN BED WITH EYES CLOSED. CHEST RISE AND FALL NOTED. NO S/S OF DISTRESS. WILL CONTINUE TO MONITOR.
[2019-11-16] MEDS: DEXT 5% / NACL 0.45% 1,000 ML IV SCH (02:36)
--- NOTE | 2019-11-16 04:16 | NUR ---
PT IS SLEEPING COMFORTABLY IN BED. NO S/S OF DISTRESS. CALL LIGHT IS WITHIN REACH. WILL CONTINUE TO MONITOR.
[2019-11-16 07:02] LABS: BASOPHILS % (AUTO) 0.5 % (0.0-2.0); EOSINOPHILS # (AUTO) 0.4 K/uL (0-0.4); EOSINOPHILS % (AUTO) 4.6 % (0.0-4.0); HEMOGLOBIN 9.7 g/dL (12.0-18.0); LYMPHOCYTES # (AUTO) 2.1 K/uL (2.0-11.5); LYMPHOCYTES % (AUTO) 24.2 % (20.5-51.1); MEAN CORPUSCULAR HEMOGLOBIN 27 pg (27-31); MEAN CORPUSCULAR HGB CONC 32 g/dL (33-37); MEAN CORPUSCULAR VOLUME 82.5 fL (80-94); MONOCYTES # (AUTO) 1.3 K/uL (0.8-1.0); MONOCYTES % (AUTO) 14.4 % (1.7-9.3); NEUTROPHILS % (AUTO) 56.3 % (42.2-75.2); PLATELET COUNT (AUTO) 465 K/uL (140-450); RED BLOOD CELL COUNT(AUTO) 3.63 MIL/uL (4.20-6.10); RED CELL DISTRIBUTION WIDTH 14.6 % (11.6-13.7); WHITE BLOOD COUNT (AUTO) 8.9 K/uL (4.8-10.8)
--- NOTE | 2019-11-16 07:25 | NUR ---
GAVE BEDSIDE REPORT TO DAY RN. PT ENDORSED IN STABLE CONDITION.
[2019-11-16 07:26] LABS: ANION GAP 8.4 (8-16); CARBON DIOXIDE 28.2 mmol/L (21-32); CREATININE 1.6 mg/dL (0.6-1.3); POTASSIUM 3.6 mmol/L (3.5-5.1)
--- NOTE | 2019-11-16 07:41 | NUR ---
RECEIVED REPORT FROM MERCHANDISER FOR CONTINUITY OF CARE FROM YESTERDAY. PT IN STABLE CONDITION AT THIS TIME. ALL NEEDS CURRENTLY MET.
[2019-11-16 08:00] VITALS: BP 123/87
--- NOTE | 2019-11-16 09:24 | NUR ---
PT RESTING IN BED. ALL NEEDS MET. WILL CONTINUE TO ROUND FREQUENTLY ON PT.
[2019-11-16] MEDS: MULTIVITAMIN/MINERALS 1 TAB PO SCH (09:44)
[2019-11-16] MEDS: ATORVASTATIN 20 MG TAB PO SCH (09:44)
[2019-11-16] MEDS: ZINC SULF 220 MG CAP PO SCH (09:44)
[2019-11-16] MEDS: LACTOBACILLUS RHAMNOSUS GG 1 EACH CAP PO SCH (09:44)
[2019-11-16] MEDS: PSYLLIUM 12.2 GM/PKT PO SCH (09:45)
[2019-11-16] MEDS: FAMOTIDINE 20 MG TAB PO SCH (09:45)
[2019-11-16] MEDS: CARVEDILOL 6.25 MG TAB PO SCH (09:45)
[2019-11-16] MEDS: METOCLOPRAMIDE 10 MG TAB PO SCH (09:45)
[2019-11-16] MEDS: CARBAMIDE PEROXIDE 6.5% OT 15 ML BTL OT SCH (09:45)
--- NOTE | 2019-11-16 11:24 | NUR ---
T SLEEPING. ALL NEEDS MET. WILL CONTINUE TO ROUND ON PT.
--- NOTE | 2019-11-16 13:40 | NUR ---
PT DISCHARGED BACK TO [facility]. PT PICKED UP BY [employer] SUPERINTEND[employer]. ALL DISCHARGE TEACHING EXPLAINED TO CAREGIVER. CAREGIVER VERBALIZED UNDERSTANDING. PER MD ORDERS, PICC LINE AND WALLS CATHETER REMOVED. PT TOLERATED REMOVAL WELL. PT BELONGINGS TAKEN HOME WITH PT. PT VITALS STABLE. PT WRIST BAND REMOVED AND PLACED IN SHRED BIN. PER PT SISTER JERALD, PT RECEIVED FLU AND PNA VACCINES IN 09/2019. PT LEFT IN STABLE CONDITION WITH CAREGIVER FROM [facility].
== END 2019-11-16 13:40 | disposition home or self-care (01) | DRG 871 ==
LOC: MED 10:56 → MTU 12:47
PROVIDERS: ADMIT Preventive Medicine Preventive Medicine/Occupational Environmental Medicine; ATTEND Preventive Medicine Preventive Medicine/Occupational Environmental Medicine
DX: A41.9 Sepsis, unspecified organism (principal); J18.9 Pneumonia, unspecified organism; G80.0 Spastic quadriplegic cerebral palsy; E43 Unspecified severe protein-calorie malnutrition; J96.01 Acute respiratory failure with hypoxia; I13.0 Hypertensive heart and chronic kidney disease with heart failure and stage 1 through stage 4 chronic kidney disease, or unspecified chronic kidney disease; N17.9 Acute kidney failure, unspecified; F79 Unspecified intellectual disabilities; D64.9 Anemia, unspecified; E83.39 Other disorders of phosphorus metabolism; E83.52 Hypercalcemia; I25.10 Atherosclerotic heart disease of native coronary artery without angina pectoris; I50.9 Heart failure, unspecified; K59.00 Constipation, unspecified; M81.0 Age-related osteoporosis without current pathological fracture; N18.9 Chronic kidney disease, unspecified; Y95 Nosocomial condition; R31.9 Hematuria, unspecified; E83.42 Hypomagnesemia; E78.5 Hyperlipidemia, unspecified; R73.9 Hyperglycemia, unspecified; T36.8X5A Adverse effect of other systemic antibiotics, initial encounter; Z90.49 Acquired absence of other specified parts of digestive tract; Z96.642 Presence of left artificial hip joint; D47.3 Essential (hemorrhagic) thrombocythemia; Z74.01 Bed confinement status; Z88.8 Allergy status to other drugs, medicaments and biological substances; Z91.018 Allergy to other foods; Z79.899 Other long term (current) drug therapy; Y92.89 Other specified places as the place of occurrence of the external cause; Z68.26 Body mass index [BMI] 26.0-26.9, adult
CPT/HCPCS: 36415; 36600; 71045; 76770; 80048; 80053; 80202; 81001; 82550; 82553; 82803; 83605; 83735; 83880; 84100; 84484; 85025; 85651; 86140; 87040; 87070; 87081; 87086; 87205; 87804; 89220; 92526; 92610; 93005; 94640; 96365; 99285; J1450; J1940; J1956; J2185; J2543; J3370; J3475; J7030; J7060; J7613; J7644; J8597; Q0092

== ENCOUNTER 2020-03-08 22:28 | Inpatient (IN) | payer OTHER, MEDICAID, SELFPAY ==
[~2020-03-08] VITALS: Ht 170.2 cm; Wt 81.2 kg
[~2020-03-08 22:28] MED LIST changes: +ATOR20TA40 PO; +CARV6.252 PO; -TAM75 PO; -VANC1PDS13 IV; -ZOS3.375I IV
[2020-03-08 22:30] VITALS: BP 111/81
--- NOTE | 2020-03-08 22:30 | NUR ---
PT 55 Y/O MALE ERYN FROM [facility] FOR C/O GENERALIZED WEAKNESS AND DECREASED APPITTITE X 3 DAYS. PER FACILITY PT TESTED POSITVE FOR COVID X 1 WEEK AGO. PT WEARING MASK. PT AAO X3 TO PERSON, PLACE, AND SITUATION. PT ABLE TO MAKE NEEDS KNOWN. PT CONTRACTED IN BUE. PT NON AMBUALTORY AND USES W/C AT FACILTY. DENIES N/V/D. NO COUGH NOTED. PT NOTED WITH CRACKELS IN BILAT LL. O2SAT @ 95% ON RA. PT AFEBRILE. VSS. SEIZURE PRECAUTIONS IN PLACE. PADDED SIDERAIL PLACED. SUCTION SET UP AND AT BEDSIDE. PT ON FURNACE COOLER. BED LOCKED AND IN LOWEST POSTION. MEDHX: MILD INTELLECTUAL DIABILITY, SEIZURES, HTN, BLINDNESS ALLERGIES: NKA
--- NOTE | 2020-03-08 22:30 | NUR ---
PT TAKEN TO BED 10 VIA JEN. EMILIA R/O. PT WEARING MASK. NURSE WEARING PROPER PPE.
--- NOTE | 2020-03-08 22:40 | NUR ---
PT IV PLACED IN L FA 22 G. IV SITE IS PATENT. NO SWELLING, REDNESS, OR C/O PAIN AT THIS TIME.
--- NOTE | 2020-03-08 22:45 | NUR ---
PT LABS, AND BLOOD CULTURE COLLECTED AT BEDSIDE. LABS GIVEN TO CATTLE KILLER.
--- NOTE | 2020-03-08 22:45 | NUR ---
UA COLLECTED VIA F/C AND GIVEN TO CORN HUSKER.
[2020-03-08] MEDS ORDERED: cefTRIAXone 1,000 MG VIAL ONE (22:46)
--- NOTE | 2020-03-08 23:00 | NUR ---
COVID SWAB COLLECTED VIA NARES AND GIVEN TO WILDLIFE ECOLOGIST.
--- NOTE | 2020-03-08 23:30 | NUR ---
EKG PERFORMED AT BEDSIDE.
--- NOTE | 2020-03-08 23:40 | NUR ---
ROCHEPHIN 1000MG IN D5% 50 ML GIVEN IV IN L FA. PT IV SITE PATENT AND ASYMPTOMATIC. IVPB RUNNING AT 100ML/HR.
[2020-03-08 23:41] LABS: BASOPHILS # (AUTO) 0.1 K/uL (0.00-0.22); BASOPHILS % (AUTO) 1.2 % (0.0-2.0); EOSINOPHILS # (AUTO) 0.3 K/uL (0-0.4); EOSINOPHILS % (AUTO) 4.7 % (0.0-4.0); HEMATOCRIT 44.2 % (36-52); HEMOGLOBIN 14.3 g/dL (12.0-18.0); LYMPHOCYTES # (AUTO) 2.2 K/uL (2.0-11.5); MEAN CORPUSCULAR HEMOGLOBIN 26 pg (27-31); MEAN CORPUSCULAR HGB CONC 32 g/dL (33-37); MEAN CORPUSCULAR VOLUME 78.9 fL (80-94); MONOCYTES # (AUTO) 0.7 K/uL (0.8-1.0); MONOCYTES % (AUTO) 9.9 % (1.7-9.3); NEUTROPHILS # (AUTO) 3.7 K/uL (1.8-7.7); NEUTROPHILS % (AUTO) 52.2 % (42.2-75.2); PLATELET COUNT (AUTO) 243 K/uL (140-450); RED CELL DISTRIBUTION WIDTH 14.5 % (11.6-13.7)
[2020-03-08 23:44] LABS: APPEARANCE,URINE CLEAR (CLEAR); BILIRUBIN,URINE NEGATIVE (NEGATIVE); BLOOD, URINE 1+ (NEGATIVE); COLOR,URINE YELLOW (YELLOW); LEUKOCYTE ESTERASE ,URINE NEGATIVE (NEGATIVE); NITRITE, URINE NEGATIVE (NEGATIVE); UGLUCOSE NEGATIVE (NEGATIVE)
[2020-03-08 23:56] LABS: PROTHROMBIN TIME 9.3 secs (10.8-13.4)
[2020-03-08 23:59] LABS: CARBON DIOXIDE 27.1 mmol/L (21-32); CREATININE 0.8 mg/dL (0.6-1.3); POTASSIUM 4.1 mmol/L (3.5-5.1)
[2020-03-09] LABS: RBC,URINE 20-50 /HPF (0-5)
[2020-03-09 00:01] LABS: WBC,URINE 0-5 /HPF (0-5)
--- NOTE | 2020-03-09 00:10 | NUR ---
PT IVPB COMPLETED. PT IV SITE IS PATENT. NO REDNESS, SWELLING, C/O PAIN NOTED AT SITE. PT CONTINUES ON CLOTH FOLDER HAND. SEIZURE PRECAUTION IN PLACE. BED LOCKED AND IN LOWEST POSTION AT THIS TIME.
[2020-03-09 00:11] LABS: ALBUMIN 3.3 g/dL (3.4-5.0); TOTAL BILIRUBIN 0.3 mg/dL (0.0-1.0)
[2020-03-09 00:19] LABS: C-REACTIVE PROTEIN QUANT 1.9 mg/dL (0.0-0.9)
[2020-03-09 00:20] LABS: LACTATE DEHYDROGENASE 160 U/L (85-227)
[2020-03-09] MEDS ORDERED: CALC-784 PO (00:23)
--- NOTE | 2020-03-09 01:00 | NUR ---
PT RESTING IN BED EYES OPEN AND RESPONSIVE TO VERBAL STIMULI. PT CONTINUES ON GRADES 9 THRU 12 VISITING TEACHER. VSS. PT DENIES PAIN AT THIS TIME. IV SITE IS PATENT. SEIZURE PRECAUTIONS IN PLACE.
[2020-03-09 01:20] VITALS: BP 128/74
--- NOTE | 2020-03-09 01:20 | NUR ---
RECEIVED PATIENT FROM ED VIA GURNEY. PATIENT WAS ESCORTED BY ED NURSE. HE WAS AWAKE AND ALERT NO SIGNS OF DISTRESS NOTED. TELE MONITOR ATTACHED INITIAL VS OBTAINED. PATIENT TELE MONITOR ATTACHED AND MRSA SWAB OBTAINED. WILL CONTINUE TO MONITOR
--- NOTE | 2020-03-09 01:20 | NUR ---
Patient will be admitted to care of DR. MAX. Admited to TELE. Will go to room 117A. Belongings list completed. Report to CHAYITO CHAHAL.
--- NOTE | 2020-03-09 02:00 | NUR ---
IV SITE DC DUE TO NOT BEING PATENT. PATIENT TOLERATED DC WELL. CANNULA INTACT. INSERTED NEW IV TO LEFT HAND 24 GAUGE. PATENT.
--- NOTE | 2020-03-09 03:02 | NUR ---
RECEIVED CALL BACK FROM MD WITH ORDERS FOR PATIENT. ORDERS PLACED PER MD REQUEST
[2020-03-09] MEDS ORDERED: DEXT 5% / NACL 0.45% 1,000 ML IV SCH (03:40)
[2020-03-09 04:00] VITALS: BP 128/76
[2020-03-09] MEDS ORDERED: ACETAMINOPHEN 325 MG TAB PO PRN ×2 (04:00→08:10)
[2020-03-09] MEDS ORDERED: MAGNESIUM HYDROXIDE 2400 MG/30 ML UDC PO PRN (04:00)
--- NOTE | 2020-03-09 04:40 | NUR ---
OBTAINED AM VITALS PATIENT AWAKE AND ALERT NO SIGNS OF DISTRESS NOTED. ALL MONITORS ATTACHED WILL CONTINUE TO MONITOR
--- NOTE | 2020-03-09 06:02 | NUR ---
ROUNDING PATIENT RESTING IN BAD. NO SIGNS OF DISTRESS NOTED. RESPIRATIONS EVEN AND UNLABORED. ALL MONITORS ATTACHED WILL CONTINUE TO CLOSELY MONITOR
--- NOTE | 2020-03-09 07:04 | NUR ---
ENDORSED PATIENT TO DAYSHIFT NURSE FOR CONTINUITY OF CARE. PATIENT IN STABLE CONDITION
--- NOTE | 2020-03-09 07:05 | NUR ---
RECEIVED PATIENT FROM CHILD CARE CENTRE MANAGER NURSE FOR CONTINUITY OF CARE. PATIENT IS CURRENTLY SLEEPING AT THIS TIME. NO SIGNS OF DISTRESS NOTED. RESPIRATIONS EVEN AND UNLABORED, ROOM AIR. VISIBLE CHEST RISE AND FALL NOTED. ABDOMEN SOFT AND NONTENDER. REGULAR DIET. INCONTINENT TO BOTH VOIDING AND BM. SKIN WARM, DRY, AND INTACT. IV IN THE LEFT HAND G24 RUNNING D51/2NS AT 100 ML/HR. NO SIGNS OF IV INFILTRATION. IVF RUNNING WELL. BED BOUND. CONTRACTED. DROPLET PRECAUTION FOR COVID-19. FALL PRECAUTION IN PLACE. CALL LIGHT IS WITHIN REACH. WILL CONTINUE TO MONITOR.
[2020-03-09 08:00] VITALS: BP 108/69
[2020-03-09] MEDS ORDERED: LORazepam 2 MG/ML VIAL IVP PRN (08:10)
[2020-03-09] MEDS ORDERED: BISACODYL 10 MG SUPP RC PRN (08:10)
[2020-03-09] MEDS ORDERED: ONDANSETRON 4 MG/2 ML VIAL IVP PRN (08:10)
[2020-03-09] MEDS ORDERED: HYDROcodone/APAP 5/325 MG 1 TAB TAB PO PRN (08:10)
[2020-03-09] MEDS: METOCLOPRAMIDE 10 MG TAB PO SCH ×3 (08:52→16:33)
[2020-03-09] MEDS: LOSARTAN 50 MG TAB PO SCH (08:52)
[2020-03-09] MEDS: CALCIUM CARB/VIT-D 500 MG/200 IU 1 TAB PO SCH ×2 (08:52→21:40)
[2020-03-09] MEDS: MULTIVITAMIN 1 TAB PO SCH (08:52)
[2020-03-09] MEDS: PSYLLIUM 12.2 GM/PKT PO SCH (08:53)
--- NOTE | 2020-03-09 08:53 | NUR ---
GIVEN MORNING MEDICATIONS PO, CRUSHED AND MIXED WITH VANILLA PUDDING. EXPLAINED MEDICATIONS. PATIENT VERBALIZED UNDERSTANDING. PATIENT TOLERATED WELL. WILL CONTINUE TO MONITOR.
--- NOTE | 2020-03-09 09:00 | NUR ---
DISCONTINUED IVF PER MD ORDER. PATIENT IS SALINE LOCK.
[2020-03-09 12:00] VITALS: BP 96/73
--- NOTE | 2020-03-09 12:18 | NUR ---
VITAL SIGNS CHECKED. DENIES PAIN. DENIES SOB. AFEBRILE, 97.6 TEMPORAL. ASHWINI JHAVERI, IS HELPING FEED THE PATIENT. BED IN LOW POSITION. CALL LIGHT IS WITHIN REACH. WILL CONTINUE TO MONITOR.
--- NOTE | 2020-03-09 13:03 | NUR ---
GIVEN REGLAN PO CRUSHED AND MIXED WITH APPLE SAUCE. PATIENT TOLERATED WELL. WILL CONTINUE TO MONITOR
--- NOTE | 2020-03-09 14:15 | NUR ---
PATIENT IS SLEEPING AT THIS TIME. NO SIGNS OF DISTRESS NOTED. BED IN LOW POSITION. CALL LIGHT IS WITHIN REACH. WILL CONTINUE TO MONITOR.
--- NOTE | 2020-03-09 15:11 | NUR ---
DC PLANNIN YRS OLD MALE PATIENT WS ADMITTED FROM [facility] WITH A DX OF PNEUMONIA. PT HAS A HX OF CAD, HTN, SEIZURE INJURY DRY EYES AND DYSPHAGIA AND G-TUBE . CXRAY SHOWED BIBASILAR ATELECTASIS .COVID TEST,BLOOD AND URINE CULTURE PENDING. ADMINISTERED IVF, IV ABX ROCEPHIN , CONTINUE HOME MEDS. CONSULTED WITH ID DR SHUKLA AND DR JIMENES. DC PLAN PER COVID RESULT. CM TO FOLLOW. Addendum: 03/11/20 at 1412 by Estrella Adler CM DC PLANNING: PT HAS ORDER TO GO TO SNF TO CONTINUE WITH IV RAMDESIVER . PER OUR PHARMACIST JENNIFER [facility] CAN GIVE FOR 5 DAYS AND THE SNF CAN CONTINUE WITH THE NEXT 5 DAYS .CONTACTED [facility] SPOKE WITH NATALYA STATED WILL CHECK THE [facility] FOR THE RAMDISIVER AND CALL BACK . CALLED JOAQUIN [facility] UPDATED HER WITH CLINICALS AND DC PLAN . PER JOAQUIN WILL AGREE WITH THE DECISION . Addendum: 03/12/20 at 1246 by Estrella Adler CM DC PLANNING RECEIVED A CALL FROM NATALAY GILL STATED NO SNF IS ALLOWED TO GIVE REMDISIVIR IV . NOTIFIED DR MAX THAT PT CAN NOT GO TO SNF FOR TREATMENT.PER DR MAX PT HAS TO FINISH HIS COVID TREATMENT AT THE [facility] TO FOLLOW. Addendum: 03/14/20 at 1130 by Estrella Adler DC PLANNING RECEIVED A CALL FROM [facility] REQUESTING A HOSPITAL BED FOR PATIENT TO PREVENT FREQUENT PNEUMONIA AND PT HAS GENERALIZED WEAKNESS AND BED BOUND. DISCUSSED WITH DR MANSOOR Blanco FOR THE REQUEST FORM TO BE SIGNED AND DC PLAN TO DAY. PER DR SHUKLA PT IS STABLE .CM TO FOLLOW. Addendum: 03/14/20 at 1420 by Estrella Adler DC PANNING: SPOKE WITH DR MAX REGARDING DC PATIENT BACK TO THE FACILITY WITH HOSPITAL BED. THE REQUEST PAPERWORK SIGNED BY DR MANSOOR Blanco AND FAXED TO [facility]. CALLED [facility] NOTIFIED HER MD DC PATIENT. PER JOAQUIN WILL SUBMIT THE PAPERWORK AND WILL FAX THE RELEASE PAPER TO THE FACILITY [facility]. CALLED [facility]) [phone] SPOKE WITH SHANNON NOTIFIED HER THAT PT IS STABLE FOR DISCHARGE. PER SHANNON PT HAS THE ISOLATION ROOM FOR COVID AND SOON SHE GETS SHANNON FROM [facility] WILL SEND THE DRY BOX TENDER TO [facility] PATIENT. AND ALSO INFORMED HER WE ORDERED HOSPITAL BED AND WILL BE DELIVERED TODAY OR TOMORROW. CM TO FOLLOW.
[2020-03-09 16:00] VITALS: BP 92/59
--- NOTE | 2020-03-09 16:31 | NUR ---
DR. SHUKLA MADE ROUNDS
--- NOTE | 2020-03-09 16:33 | NUR ---
GIVEN REGLAN PO CRUSHED AND MIXED WITH APPLESAUCE. PATIENT TOLERATED WELL. VS CHECKED. WILL CONTINUE TO MONITOR.
--- NOTE | 2020-03-09 18:00 | NUR ---
PER LAB, PATIENT IS COVID-19 POSITIVE. CHARGE NURSE AWARE
--- NOTE | 2020-03-09 18:38 | NUR ---
DR. KENDELL MAX MADE AWARE FOR COVID-19 POSITIVE RESULT OF THE PATIENT.
--- NOTE | 2020-03-09 19:17 | NUR ---
ENDORSED PATIENT TO THE [employer] [facility]IC[facility] SPECIALIST NURSE FOR CONTINUITY OF CARE. PATIENT IS IN STABLE CONDITION
--- NOTE | 2020-03-09 19:18 | NUR ---
RECEIVED BEDSIDE REPORT FROM AM SHIFT NURSE. PATIENT IS LYING IN BED, RESTING WITH EYES CLOSED. NO SOB OR DISTRESS NOTED ON ROOM AIR. IV ACCESS NOTED ON LEFT HAND 24 GAUGE, SALINE LOCK. PATENT AND INTACT. INITIAL ASSESSMENT DONE. SKIN IS INTACT. BED LOW, BED LOCKED. SAFETY MEASURES IN PLACE. CALL LIGHT PLACED WITHIN PATIENT REACH. WILL CONTINUE TO MONITOR PATIENT.
[2020-03-09 20:20] VITALS: BP 116/66
[2020-03-09] MEDS: FAMOTIDINE 20 MG TAB PO SCH (21:40)
--- NOTE | 2020-03-09 21:50 | NUR ---
ROUNDS DONE. NO SOB OR DISTRESS NOTED. PATIENT CLEANED AND REPOSITIONED WITH SENIOR DATA DEVELOPER. WILL CONTINUE TO MONITOR PATIENT.
--- NOTE | 2020-03-09 23:00 | NUR ---
ROUNDS DONE. VISIBLE CHEST RISE AND FALL NOTED. WILL CONTINUE TO MONITOR PATIENT.
[2020-03-10 00:20] VITALS: BP 115/71
--- NOTE | 2020-03-10 00:20 | NUR ---
VITALS TAKEN. PATIENT RESTING WITH EYES CLOSED. VISIBLE CHEST RISE AND FALL NOTED. WILL CONTINUE TO MONITOR PATIENT.
--- NOTE | 2020-03-10 02:26 | NUR ---
ROUNDS DONE. VISIBLE CHEST RISE AND FALL NOTED. NO DISTRESS NOTED.WILL CONTINUE TO MONITOR PATIENT.
[2020-03-10 04:20] VITALS: BP 105/69
--- NOTE | 2020-03-10 04:45 | NUR ---
VITALS DONE. INFLUENZA SWAB DONE. AM CARE RENDERED. WILL CONTINUE TO MONITOR PATIENT.
--- NOTE | 2020-03-10 06:43 | NUR ---
PATIENT IN STABLE CONDITION. VISIBLE CHEST RISE AND FALL NOTED. WILL ENDORSE TO AM SHIFT NURSE FOR CONTINUITY OF CARE.
[2020-03-10 06:52] LABS: HEMATOCRIT 44.1 % (36-52); HEMOGLOBIN 14.3 g/dL (12.0-18.0); MEAN CORPUSCULAR HEMOGLOBIN 26 pg (27-31); MEAN CORPUSCULAR HGB CONC 33 g/dL (33-37); MONOCYTES # (AUTO) 0.6 K/uL (0.8-1.0); PLATELET COUNT (AUTO) 231 K/uL (140-450); RED BLOOD CELL COUNT(AUTO) 5.58 MIL/uL (4.20-6.10); RED CELL DISTRIBUTION WIDTH 14.2 % (11.6-13.7); WHITE BLOOD COUNT (AUTO) 6.9 K/uL (4.8-10.8)
[2020-03-10 06:54] LABS: ANION GAP 12.2 (8-16); CARBON DIOXIDE 28.2 mmol/L (21-32); CREATININE 0.8 mg/dL (0.6-1.3); POTASSIUM 4.4 mmol/L (3.5-5.1)
--- NOTE | 2020-03-10 07:30 | NUR ---
RECEIVED BEDSIDE REPORT FROM GEM EXPERT NURSE. PATIENT IS LYING IN BED, RESTING WITH EYES CLOSED. NO SOB OR DISTRESS NOTED ON ROOM AIR. IV ACCESS NOTED ON LEFT HAND 24 GAUGE, SALINE LOCK. PATENT AND INTACT. INITIAL ASSESSMENT DONE. SKIN IS INTACT. PT + COVID. SAFETY AND DROPLET PRECAUTIONS IN PLACE, BED ON LOWEST SETTING WITH ALARM AND BRAKES ON, CALL LIGHT WITHIN REACH, WILL CONTINUE TO MONITOR PATIENT.
--- NOTE | 2020-03-10 07:57 | NUR ---
PATIENT HAS BEEN SCREENED AND CATEGORIZED LOW NUTRITION RISK. PATIENT WILL BE SEEN WITHIN 7 DAYS OF ADMISSION. 03/15/20 RIRI HOYT MS, RDN
[2020-03-10 08:00] VITALS: BP 98/67
[2020-03-10 08:05] LABS: BASOPHILS % (AUTO) 1.9 % (0.0-2.0); EOSINOPHILS % (AUTO) 5.3 % (0.0-4.0); MONOCYTES % (AUTO) 8.1 % (1.7-9.3)
[2020-03-10 08:06] LABS: BASOPHILS # (AUTO) 0.1 K/uL (0.00-0.22); EOSINOPHILS # (AUTO) 0.4 K/uL (0-0.4); LYMPHOCYTES # (AUTO) 2.1 K/uL (2.0-11.5); NEUTROPHILS # (AUTO) 3.8 K/uL (1.8-7.7); NEUTROPHILS % (AUTO) 54.7 % (42.2-75.2)
[2020-03-10] MEDS: FAMOTIDINE 20 MG TAB PO SCH ×2 (08:09→21:42)
[2020-03-10] MEDS: LOSARTAN 50 MG TAB PO SCH (08:09)
[2020-03-10] MEDS: MULTIVITAMIN 1 TAB PO SCH (08:09)
[2020-03-10] MEDS: CALCIUM CARB/VIT-D 500 MG/200 IU 1 TAB PO SCH ×2 (08:10→21:42)
[2020-03-10] MEDS: METOCLOPRAMIDE 10 MG TAB PO SCH ×3 (08:10→17:51)
[2020-03-10] MEDS: PSYLLIUM 12.2 GM/PKT PO SCH (08:10)
--- NOTE | 2020-03-10 08:10 | NUR ---
ORDERED MEDICATIONS GIVEN WITH APPLESAUCE. PATIENT TOLERATED THEM. PATIENT HAS NO COMPLAINTS AT THIS TIME. SAFETY AND DROPLET PRECAUTIONS IN PLACE, CALL LIGHT WITHIN REACH. BED IN LOWEST POSITION WITH BRAKES ON, WILL CONTINUE TO MONITOR PATIENT.
--- NOTE | 2020-03-10 10:15 | NUR ---
RECEIVED PT FROM CYNTHIA CHAHAL PT IS AAOX2 CONTRACTED HX CEREBRAL PALSY, ON TELEMETRY SR , HL; ON LEFT HAND # 24 PATENT, NOT SOB NOTED INITIAL ASSESSMENT DONE Addendum: 03/11/20 at 0234 by Shilpa Beltre RN THE TIME WAS AT 1915 ON 03/10/2020
--- NOTE | 2020-03-10 11:50 | NUR ---
ROUNDS DONE. PATIENT RESTING IN BED COMFORTABLY. RESPIRATIONS EVEN AND UNLABORED. NO S/S OF SOB OR DISTRESS NOTED. WILL CONTINUE TO MONITOR PATIENT.
[2020-03-10 12:00] VITALS: BP 133/88
--- NOTE | 2020-03-10 12:45 | NUR ---
ORDERED MEDICATION GIVEN. PATIENT TOLERATED IT WELL. PATIENT NOW SITTING UP IN BED BEING FED LUNCH. PATIENT HAS NO COMPLAINTS AT THIS TIME. VS WNL. SAFETY AND DROPLET PRECAUTIONS IN PLACE, CALL LIGHT WITHIN REACH. WILL CONTINUE TO MONITOR PATIENT.
[2020-03-10 16:00] VITALS: BP 108/63
--- NOTE | 2020-03-10 16:45 | NUR ---
TEMPORAL TEMP 100.1, RECHECKED AXILLARY, 98.2. PATIENT HAS NO COMPLAINTS AT THIS TIME. WILL CONTINUE TO MONITOR PATIENT.
[2020-03-10] MEDS ORDERED: ENOXAPARIN 40 MG/0.4 ML SYR SUBQ SCH (17:05)
--- NOTE | 2020-03-10 18:25 | NUR ---
ORDERED MEDICATION GIVEN. PATIENT FED DINNER. PATIENT TOLERATED IT WELL. PATIENT HAS NO COMPLAINTS AT THIS TIME. DROPLET AND SAFETY PRECAUTIONS IN PLACE, CALL LIGHT WITHIN REACH, WILL CONTINUE TO MONITOR PATIENT AND ENDORSE TO SUSTAINMENT LOGISTICS ANALYST NURSE.
[2020-03-10 20:00] VITALS: BP 106/63
--- NOTE | 2020-03-10 20:00 | NUR ---
PT REPOSITIONED NOT DISTRESS NOTED AT RA HL ON LEFT HAND ON TELEMETRY SR
[2020-03-10] MEDS: ENOXAPARIN 40 MG/0.4 ML SYR SUBQ SCH (21:41)
--- NOTE | 2020-03-10 22:00 | NUR ---
PT IS MRSA NARES POSITIVE ;PROTOCOL WILL BE APPLY
[2020-03-11] VITALS: BP 108/73
--- NOTE | 2020-03-11 01:30 | NUR ---
PT SLEEPING WELL NOT DISTRESS NOTED REPOSITIONED Q2H ON TELEMETRY SR NOT SOB NOTED
[2020-03-11 04:00] VITALS: BP 127/85
--- NOTE | 2020-03-11 04:00 | NUR ---
SPONGE BATH GIVEN LINEN CHANGED ON TELEMETRY SR, PT REPOSITIONED NOT SOB NOTED
[2020-03-11 06:58] LABS: BASOPHILS # (AUTO) 0.1 K/uL (0.00-0.22); BASOPHILS % (AUTO) 1.3 % (0.0-2.0); EOSINOPHILS # (AUTO) 0.4 K/uL (0-0.4); EOSINOPHILS % (AUTO) 6.1 % (0.0-4.0); HEMATOCRIT 43.2 % (36-52); HEMOGLOBIN 13.9 g/dL (12.0-18.0); LYMPHOCYTES # (AUTO) 1.8 K/uL (2.0-11.5); LYMPHOCYTES % (AUTO) 30.2 % (20.5-51.1); MEAN CORPUSCULAR HEMOGLOBIN 25 pg (27-31); MEAN CORPUSCULAR HGB CONC 32 g/dL (33-37); MEAN CORPUSCULAR VOLUME 78.8 fL (80-94); MONOCYTES # (AUTO) 0.5 K/uL (0.8-1.0); MONOCYTES % (AUTO) 8.9 % (1.7-9.3); NEUTROPHILS # (AUTO) 3.2 K/uL (1.8-7.7); NEUTROPHILS % (AUTO) 53.5 % (42.2-75.2); PLATELET COUNT (AUTO) 248 K/uL (140-450); RED BLOOD CELL COUNT(AUTO) 5.48 MIL/uL (4.20-6.10); RED CELL DISTRIBUTION WIDTH 14.1 % (11.6-13.7)
--- NOTE | 2020-03-11 07:00 | NUR ---
PT COOPERATIVE TO TAKE HIS MEDICATION , HL ON LEFT HAND PATENT ON TEL SR NOT SOB NOTED , PT WILL BE ENDORSED TODAY SHIFT NURSE FOR CONTINUE OF CARE
--- NOTE | 2020-03-11 07:15 | NUR ---
RECEIVED BEDSIDE REPORT FROM NIGHTSHIFT NURSE. PT RESTING IN BED. ABLE TO MAKE NEEDS KNOWN. RESPIRATIONS EVEN AND UNLABORED WITH NO SOB OR RESPIRATORY DISTRESS. SKIN WARM AND DRY TO TOUCH. IV SITE IN L HAND 24G IS CLEAN, DRY, AND INTACT. SAFETY MEASURES IN PLACE. WILL CONTINUE TO MONITOR
[2020-03-11 07:16] LABS: D-DIMER 1180 ng/ml (0-400)
[2020-03-11 07:19] LABS: ALBUMIN 3.3 g/dL (3.4-5.0); ANION GAP 9.1 (8-16); CARBON DIOXIDE 30.1 mmol/L (21-32); CREATININE 0.7 mg/dL (0.6-1.3); POTASSIUM 4.2 mmol/L (3.5-5.1); TOTAL BILIRUBIN 0.4 mg/dL (0.0-1.0)
[2020-03-11 08:00] VITALS: BP 106/62
[2020-03-11 08:57] LABS: FIBRINOGEN 475 mg/dL (200-400)
[2020-03-11] MEDS: CALCIUM CARB/VIT-D 500 MG/200 IU 1 TAB PO SCH ×2 (09:50→21:19)
[2020-03-11] MEDS: MUPIROCIN CA NASAL 2% 1GM TUBE NS SCH (09:50)
[2020-03-11] MEDS: FAMOTIDINE 20 MG TAB PO SCH ×2 (09:50→21:19)
[2020-03-11] MEDS: LOSARTAN 50 MG TAB PO SCH (09:50)
[2020-03-11] MEDS: CHLORHEXADINE GLUC 2% CLOTH TP SCH (09:51)
[2020-03-11] MEDS: MULTIVITAMIN 1 TAB PO SCH (09:51)
[2020-03-11] MEDS: METOCLOPRAMIDE 10 MG TAB PO SCH ×3 (09:51→17:23)
[2020-03-11] MEDS: PSYLLIUM 12.2 GM/PKT PO SCH (09:57)
--- NOTE | 2020-03-11 09:57 | NUR ---
ADMINISTERED SCHED MED PRESCRIBED PER MD ORDER. PT TOLERATED WELL. MEDICATION EDUCATION PERFORMED. PT RETURN DEMONSTRATION. SAFETY MEASURES IN PLACE. WILL CONTINUE TO MONITOR
--- NOTE | 2020-03-11 10:23 | NUR ---
WORM FARMER NOTE: Basic Screen: Yes High Risk DC Screen [place]: BOUBACAR RODRIGUEZ Home Relationship: SISTER Pre-Admission Living Arrangements: Board and Care Other: [facility] - BOARD AND CARE Prior ADL Total/Dependent Current Home Health Name/Tel: N/A Current DME/02 Name/Tel: WHEELCHAIR, CPAP Current Hospice Name/Tel: N/A Current Dialysis Name/Tel: N/A Healthcare Decision Maker: Next of Kin Other: BOUBACAR RODRIGUEZ Advance Directive No Physician Orders for Life Sustaining Treatment Form No Patient/Family Have Educational Needs No Discipline: Case Mgt/Social Svcs Tentative Discharge Plan/Destination: Board and Care Other: [facility] Will require assistance post discharge: No Referred to Vocational Rehab Consultant: No Tentative Discharge Plan Summary: PATIENT IS A 55-YEAR-OLD MALE ADMITTED FOR PNEUMONIA. PATIENT HAS PMHX OF CAD, TRACHEOSTOMY, ELBOW SURGERY, FOOT SURGERY, AND COVID. PATIENT WAS ADMITTED FROM [facility]. SW CONTACTED SISTER BOUBACAR RODRIGUEZ. PER BOUBACAR, PATIENT REQUIRES TOTAL ASSISTANCE WITH ADLS. BOUBACAR STATED THAT SHE IS THE HEALTHCARE DECISION MAKER FOR PATIENT, BUT HAS NO CONSERVATORSHIP OVER PATIENT. BOUBACAR STATED THAT JOAQUIN GORDY IS PATIENT'S [facility] WORKER [phone]. BOUBACAR REPORTED THAT ALL OF PATIENT'S NEEDS ARE BEING MET. TENTATIVE DISCHARGE PLAN IS FOR PATIENT TO RETURN TO [facility]. NO FURTHER NEEDS IDENTIFIED. Signature: MIGUEL ANGEL CLARKE Date: Mar 11, 2020 Time: 10:22
--- NOTE | 2020-03-11 11:20 | NUR ---
HOURLY ROUNDING. PT RESTING IN BED. ABLE TO MAKE NEEDS KNOWN. RESPIRATIONS EVEN AND UNLABORED WITH NO SOB OR RESPIRATORY DISTRESS. SKIN WARM AND DRY TO TOUCH. SAFETY MEASURES IN PLACE. WILL CONTINUE TO MONITOR
[2020-03-11 12:00] VITALS: BP 110/70
[2020-03-11] MEDS ORDERED: COMMUNICATION ORDER MC SCH (12:00)
--- NOTE | 2020-03-11 13:49 | NUR ---
ADMINISTERED SCHED MED PRESCRIBED PER MD ORDER. PT TOLERATED WELL. MEDICATION EDUCATION PERFORMED. PT RETURN DEMONSTRATION. SAFETY MEASURES IN PLACE. WILL CONTINUE TO MONITOR
[2020-03-11] MEDS ORDERED: REMDESIVIR 200 MG SCH (14:00)
--- NOTE | 2020-03-11 15:42 | NUR ---
HOURLY ROUNDING. PT RESTING IN BED. ABLE TO MAKE SOME NEEDS KNOWN. RESPIRATIONS EVEN AND UNLABORED WITH NO SOB OR RESPIRATORY DISTRESS. SKIN WARM AND DRY TO TOUCH. SAFETY MEASURES IN PLACE. WILL CONTINUE TO MONITOR
[2020-03-11 16:00] VITALS: BP 109/57
--- NOTE | 2020-03-11 17:25 | NUR ---
ADMINISTERED SCHED MED PRESCRIBED PER MD ORDER. PT TOLERATED WELL. MEDICATION EDUCATION PERFORMED. PT RETURN DEMONSTRATION. SAFETY MEASURES IN PLACE. WILL CONTINUE TO MONITOR
--- NOTE | 2020-03-11 19:30 | NUR ---
ENDORSED AT BEDSIDE TO NIGHTSHIFT NURSE FOR CONTINUITY OF CARE. PT IS STABLE
--- NOTE | 2020-03-11 19:31 | NUR ---
RECEIVED BEDSIDE REPORT FROM NIGHTSHIFT NURSE. PT RESTING IN BED. ENHANCED DROPLET AND CONTACT PREC; AND WELL MRSA POSITIVE CONTACT PREC. ABLE TO MAKE NEEDS KNOWN. RESPIRATIONS EVEN AND UNLABORED WITH NO SOB OR RESPIRATORY DISTRESS. SKIN WARM AND DRY TO TOUCH. IV SITE IN L HAND 24G CLEAN, DRY, AND INTACT. SAFETY MEASURES IN PLACE. WILL CONTINUE TO MONITOR
[2020-03-11 20:00] VITALS: BP 135/82
--- NOTE | 2020-03-11 21:00 | NUR ---
PATIENT CLEANED AND TURNED , PLACED PILLOWS ON ONE SIDE. PT ALSO FED, NO SIGNS OF RESPIRATORY DISTRESS; NO COMPLAINTS OF PAIN.
[2020-03-11] MEDS: ENOXAPARIN 40 MG/0.4 ML SYR SUBQ SCH (21:21)
--- NOTE | 2020-03-11 22:30 | NUR ---
PATIENT CHECKED TELEMONITOR PATIENTS RATE 115 BPM; PT COLD, PLACED BLANKETS ON PATIENT
[2020-03-12] VITALS: BP 136/72
--- NOTE | 2020-03-12 02:00 | NUR ---
PATIENT CLEANED AND TURNED , PLACED PILLOWS ON ONE SIDE TO OFFLOAD PRESSURE AREAS
[2020-03-12 04:00] VITALS: BP 128/83
--- NOTE | 2020-03-12 04:15 | NUR ---
PATIENT TURNED WITH THE HELP OF TRAINING GENERALIST; CLEANED PATIENT, OFFLOADED PRESSURE AREAS WITH PILLOWS.
--- NOTE | 2020-03-12 06:47 | NUR ---
PATIENT IN STABLE CONDITION, NO SIGNS OF PAIN WILL ENDORSE TO NEXT SHIFT
[2020-03-12 07:25] LABS: ANION GAP 16.4 (8-16); CARBON DIOXIDE 25.7 mmol/L (21-32); CREATININE 0.9 mg/dL (0.6-1.3); POTASSIUM 4.1 mmol/L (3.5-5.1)
--- NOTE | 2020-03-12 07:25 | NUR ---
RECEIVED BEDSIDE REPORT FROM CASINO RUNNER RNJOAQUIN, FOR CONTINUITY OF CARE. PT RESTING IN BED. ENHANCED DROPLET AND CONTACT PREC FOR POSITIVE COVID-19; AND WELL MRSA POSITIVE CONTACT PREC. PT. IS ON RA, RESPIRATIONS EVEN AND UNLABORED WITH NO SOB OR RESPIRATORY DISTRESS, SAO2 OF 95%. SKIN WARM AND DRY TO TOUCH. IV SITE IN L HAND 24G CLEAN, DRY, AND INTACT. DISCUSSED POC. SAFETY MEASURES IN PLACE. CALL LIGHT WITHIN REACH. WILL CONTINUE TO MONITOR
[2020-03-12 07:26] LABS: BASOPHILS # (AUTO) 0.2 K/uL (0.00-0.22); BASOPHILS % (AUTO) 2.8 % (0.0-2.0); EOSINOPHILS # (AUTO) 0.3 K/uL (0-0.4); EOSINOPHILS % (AUTO) 4.7 % (0.0-4.0); HEMATOCRIT 41.2 % (36-52); HEMOGLOBIN 13.5 g/dL (12.0-18.0); LYMPHOCYTES # (AUTO) 1.8 K/uL (2.0-11.5); LYMPHOCYTES % (AUTO) 27.3 % (20.5-51.1); MEAN CORPUSCULAR HEMOGLOBIN 26 pg (27-31); MEAN CORPUSCULAR HGB CONC 33 g/dL (33-37); MEAN CORPUSCULAR VOLUME 77.9 fL (80-94); MONOCYTES # (AUTO) 0.7 K/uL (0.8-1.0); MONOCYTES % (AUTO) 10.4 % (1.7-9.3); NEUTROPHILS # (AUTO) 3.7 K/uL (1.8-7.7); NEUTROPHILS % (AUTO) 54.8 % (42.2-75.2); PLATELET COUNT (AUTO) 252 K/uL (140-450); RED BLOOD CELL COUNT(AUTO) 5.29 MIL/uL (4.20-6.10); RED CELL DISTRIBUTION WIDTH 14.4 % (11.6-13.7); WHITE BLOOD COUNT (AUTO) 6.8 K/uL (4.8-10.8)
[2020-03-12 08:00] VITALS: BP 119/87
--- NOTE | 2020-03-12 08:40 | NUR ---
PT. ASSESSED. RESPIRATIONS EVEN AND UNLABORED, ON RA WITH SAO2 OF 96%, NO SIGNS OF DISTRESS. LUNG SOUNDS CLEAR. AAOX3 ABLE TO STATE NAME, DATE, AND LOCATION. IV SITE INTACT WITH NS RUNNING AT TKO. HEART SOUNDS REGULAR, WITH S1&S2. NO EDEMA PRESENT, CAP REFILL < 3 SEC. PT. VERBALIZES NO PAIN OR DISCOMFORT, STATES FEELING MUCH BETTER. WILL CONTINUE TO MONITOR.
[2020-03-12] MEDS: CALCIUM CARB/VIT-D 500 MG/200 IU 1 TAB PO SCH ×2 (08:45→21:38)
[2020-03-12] MEDS: MUPIROCIN CA NASAL 2% 1GM TUBE NS SCH (08:45)
--- NOTE | 2020-03-12 08:45 | NUR ---
MORNING MEDICATIONS GIVEN. NO SIGNS OF DISTRESS NOTED. PT. VERBALIZES NO PAIN. ABLE TO MAKE NEEDS KNOWN. WILL CONTINUE TO MONITOR.
[2020-03-12] MEDS: MULTIVITAMIN 1 TAB PO SCH (08:46)
[2020-03-12] MEDS: LOSARTAN 50 MG TAB PO SCH (08:46)
[2020-03-12] MEDS: FAMOTIDINE 20 MG TAB PO SCH ×2 (08:46→21:38)
[2020-03-12] MEDS: METOCLOPRAMIDE 10 MG TAB PO SCH ×3 (08:46→17:07)
[2020-03-12] MEDS: PSYLLIUM 12.2 GM/PKT PO SCH (08:47)
[2020-03-12] MEDS: CHLORHEXADINE GLUC 2% CLOTH TP SCH (08:48)
[2020-03-12] MEDS ORDERED: CRUSHER, PILL MC ONE (08:53)
[2020-03-12] MEDS: CLINICAL MONITORING MC SCH (09:21)
[2020-03-12 12:00] VITALS: BP 124/78
--- NOTE | 2020-03-12 12:55 | NUR ---
AFTERNOON MEDICATIONS GIVEN. NO SIGNS OF DISTRESS NOTED. V/S TAKEN AND IS WNL, PT. VERBALIZES NO PAIN. WILL CONTINUE TO MONITOR.
[2020-03-12] MEDS: REMDESIVIR 100MG IV IV SCH (14:14)
--- NOTE | 2020-03-12 14:20 | NUR ---
REMDESEVIR IVPB GIVEN. NO SIGNS OF DISTRESS NOTED. PT. IS ASLEEP AND IN BED. REMDESEVIR HANDOUT AND TEACHING GIVEN. REINFORCEMENT NEEDED BUT PT. VERBALIZING UNDERSTANDING TEACHING JUST A LITTLE AND WILL ASK MORE TOWARDS MD IF THERE IS MORE QUESTION. WILL CONTINUE TO MONITOR.
--- NOTE | 2020-03-12 14:55 | NUR ---
03/12/20 RD INITIAL ASSESSMENT COMPLETED PLEASE REFER TO NUTRITION ASSESSMENT UNDER CARE ACTIVITY FOR ESTIMATED NUTRITIONAL NEEDS. 1. RECOMMEND MECHANICAL SOFT NA2GM DIET TOLERATED 2. CONTINUE TO PROVIDE ASSISTANCE WITH MEALS 3. CONSIDER ENSURE BID IF PO INTAKE IS <75% 4. RD TO FOLLOW-UP 2-3 DAYS, HIGH RISK JAYDA GUEVARA, DANIELA
[2020-03-12 16:00] VITALS: BP 118/64
--- NOTE | 2020-03-12 16:40 | NUR ---
PT. IS ASLEEP AND IN BED. V/S TAKEN AND IS WNL. NO SIGNS OF DISTRESS NOTED. WILL CONTINUE TO MONITOR.
--- NOTE | 2020-03-12 19:15 | NUR ---
ENDORSED TO PM SHIFT RN, MELISSA, FOR CONTINUITY OF CARE.
--- NOTE | 2020-03-12 19:16 | NUR ---
RECEIVED REPORT FROM AM NURSE. PATIENT LYING DOWN IN BED, NO DISTRESS NOTED. DENIES ANY PAIN, FLACC 0. AAOX2, CALM, COOPERATIVE, SKIN COLOR APPROPRIATE TO ETHNICITY, WARM TO TOUCH. SKIN INTACT. BUE/BLE CONTRACTURES. RESPIRATIONS EVEN, UNLABORED, ON ROOM AIR. IV SITE INTACT, PATENT, AND INFUSING IVF PER MD ORDERS. REVIEWED PLAN OF CARE WITH PATIENT. REINFORCEMENT NEEDED. SAFETY MEASURES IN PLACE, CALL LIGHT WITHIN REACH. WILL CONTINUE TO MONITOR.
[2020-03-12 20:00] VITALS: BP_SYST 122; BP_SYST 125; BP_DIAS 80; BP_DIAS 82
[2020-03-12] MEDS: ENOXAPARIN 40 MG/0.4 ML SYR SUBQ SCH (21:39)
--- NOTE | 2020-03-12 21:41 | NUR ---
SCHEDULED MEDICATIONS DUE GIVEN. WILL CONTINUE TO MONITOR.
[2020-03-13] VITALS: BP 116/64
--- NOTE | 2020-03-13 02:10 | NUR ---
PATIENT LYING DOWN IN BED SLEEPING, AROUSABLE BY VOICE. NO DISTRESS NOTED. CONDITION UNCHANGED. WILL CONTINUE TO MONITOR.
[2020-03-13 04:00] VITALS: BP 114/66
--- NOTE | 2020-03-13 04:30 | NUR ---
ASSISTED MUSEUM DIRECTOR IN CLEANING AND REPOSITIONING PATIENT. WILL CONTINUE TO MONITOR.
--- NOTE | 2020-03-13 06:13 | NUR ---
PATIENT LYING DOWN IN BED SLEEPING, AROUSABLE BY VOICE. NO DISTRESS NOTED. WILL CONTINUE TO MONITOR.
[2020-03-13 07:06] LABS: BASOPHILS # (AUTO) 0.1 K/uL (0.00-0.22); BASOPHILS % (AUTO) 1.1 % (0.0-2.0); EOSINOPHILS # (AUTO) 0.3 K/uL (0-0.4); EOSINOPHILS % (AUTO) 4.5 % (0.0-4.0); HEMATOCRIT 40.3 % (36-52); HEMOGLOBIN 13.2 g/dL (12.0-18.0); LYMPHOCYTES % (AUTO) 28.5 % (20.5-51.1); MEAN CORPUSCULAR HEMOGLOBIN 26 pg (27-31); MEAN CORPUSCULAR HGB CONC 33 g/dL (33-37); MEAN CORPUSCULAR VOLUME 78.2 fL (80-94); MONOCYTES # (AUTO) 0.7 K/uL (0.8-1.0); MONOCYTES % (AUTO) 9.5 % (1.7-9.3); NEUTROPHILS # (AUTO) 3.9 K/uL (1.8-7.7); NEUTROPHILS % (AUTO) 56.4 % (42.2-75.2); PLATELET COUNT (AUTO) 254 K/uL (140-450); RED BLOOD CELL COUNT(AUTO) 5.16 MIL/uL (4.20-6.10); RED CELL DISTRIBUTION WIDTH 14.3 % (11.6-13.7); WHITE BLOOD COUNT (AUTO) 6.9 K/uL (4.8-10.8)
--- NOTE | 2020-03-13 07:11 | NUR ---
GAVE REPORT TO AM SHIFT NURSE FOR CONTINUITY OF CARE. PATIENT IN STABLE CONDITION.
--- NOTE | 2020-03-13 07:21 | NUR ---
RECEIVED REPORT FROM LOAN PROCESSOR NURSE FOR CONTINUITY OF CARE. PT IS AAOX2, COOPERATIVE AND ABLE TO MAKE NEEDS KNOWN BUT HAS SLOW RESPONSE TO SOME QUESTIONS. PATIENT LYING DOWN IN BED, NO DISTRESS NOTED. DENIES ANY PAIN, FLACC 0. PT SKIN COLOR APPROPRIATE TO ETHNICITY, WARM TO TOUCH. SKIN INTACT. BUE/BLE CONTRACTURES. RESPIRATIONS EVEN, UNLABORED, ON ROOM AIR. IV SITE INTACT, PATENT, AND INFUSING IVF PER MD ORDERS. REVIEWED PLAN OF CARE WITH PATIENT. REINFORCEMENT NEEDED. SAFETY MEASURES IN PLACE, CALL LIGHT WITHIN REACH. WILL MONITOR FREQUENTLY ON PT THROUGHOUT THE SHIFT.
[2020-03-13 07:31] LABS: D-DIMER 717 ng/ml (0-400)
[2020-03-13 07:44] LABS: FIBRINOGEN 389 mg/dL (200-400)
[2020-03-13 08:00] VITALS: BP 109/73
[2020-03-13 08:28] LABS: ANION GAP 12.8 (8-16); CARBON DIOXIDE 26.2 mmol/L (21-32); CREATININE 0.7 mg/dL (0.6-1.3)
[2020-03-13 08:46] LABS: ALBUMIN 3.2 g/dL (3.4-5.0); TOTAL BILIRUBIN 0.4 mg/dL (0.0-1.0)
[2020-03-13] MEDS: MULTIVITAMIN 1 TAB PO SCH (09:00)
[2020-03-13] MEDS: CALCIUM CARB/VIT-D 500 MG/200 IU 1 TAB PO SCH ×2 (09:00→21:26)
[2020-03-13] MEDS: MUPIROCIN CA NASAL 2% 1GM TUBE NS SCH (09:00)
[2020-03-13] MEDS: CHLORHEXADINE GLUC 2% CLOTH TP SCH (09:00)
[2020-03-13] MEDS: METOCLOPRAMIDE 10 MG TAB PO SCH ×3 (09:00→16:36)
[2020-03-13] MEDS: PSYLLIUM 12.2 GM/PKT PO SCH (09:00)
[2020-03-13] MEDS: FAMOTIDINE 20 MG TAB PO SCH ×2 (09:00→21:25)
[2020-03-13] MEDS: LOSARTAN 50 MG TAB PO SCH (09:00)
[2020-03-13] MEDS: CLINICAL MONITORING MC SCH (09:07)
--- NOTE | 2020-03-13 09:27 | NUR ---
ADMINISTERED MORNING MEDS TO PT. PT TOLERATED WELL. ALL NEEDS MET. WILL CONTINUE TO ROUND FREQUENTLY ON PT.
--- NOTE | 2020-03-13 11:30 | NUR ---
PT SLEEPING IN BED. ALL NEEDS MET. WILL CONTINUE TO ROUND ON PT.
[2020-03-13 12:00] VITALS: BP 111/76
--- NOTE | 2020-03-13 13:08 | NUR ---
PT EATING LUNCH WITH ASSIST OF TELEVISION PRODUCTION CLERK. ALL NEEDS MET. WILL CONTINUE TO ROUND FREQUENTLY ON PT.
[2020-03-13] MEDS: REMDESIVIR 100MG IV IV SCH (14:06)
--- NOTE | 2020-03-13 15:31 | NUR ---
PT RESTING IN BED. ALL NEEDS MET. WILL CONTINUE TO ROUND FREQUENTLY ON PT.
[2020-03-13 17:00] VITALS: BP 103/70
--- NOTE | 2020-03-13 19:25 | NUR ---
ENDORSED PT TO NET DEVELOPER ARCHITECT FOR CONTINUITY OF CARE. PT IN STABLE CONDITION AT THIS TIME.
--- NOTE | 2020-03-13 19:26 | NUR ---
RECEIVED REPORT FROM AM NURSE FOR CONTINUITY OF CARE. PATIENT AWAKE AND ALERT NO SIGNS OF DISTRESS NOTED. SPO2 AT 96% ON RA, IV INTACT AND PATENT WITH NS TKO, TELE MONITOR ATTACHED WILL CONTINUE TO MONITOR
[2020-03-13 20:00] VITALS: BP 112/74
[2020-03-13] MEDS: ENOXAPARIN 40 MG/0.4 ML SYR SUBQ SCH (21:25)
--- NOTE | 2020-03-13 21:25 | NUR ---
ADMINISTERED 2100 MEDICATION TO PATIENT. PATIENT TOLERATED WELL. NO SIGNS OF DISTRESS NOTED. WILL CONTINUE TO MONITOR
[2020-03-14] VITALS: BP 123/82
--- NOTE | 2020-03-14 00:10 | NUR ---
ROUNDING. ASKED BY BIT SHAVER TO ADJUST LEADS ON PATIENT. PATIENT TOLERATED WELL NO SIGNS OF DISTRESS NOTED. WILL CONTINUE TO MONITOR
--- NOTE | 2020-03-14 02:45 | NUR ---
ROUNDING, PATIENT RESTING NO SIGNS OF DISTRESS NOTED. ALL MONITORS ATTACHED AND SAFETY MEASURES IN PLACE WILL CONTINUE TO MONITOR
[2020-03-14 04:00] VITALS: BP 121/81
--- NOTE | 2020-03-14 04:15 | NUR ---
OBTAINED AM VITALS AND ASSISTED JUVENILE COUNSELOR WITH AM CARE. PATIENT TOLERATED WELL NO SIGNS OF DISTRESS NOTED. WILL CONTINUE TO MONITOR
--- NOTE | 2020-03-14 06:18 | NUR ---
ROUNDING, PATIENT RESTING IN BED NO SIGNS OF DISTRESS NOTED. WILL CONTINUE TO MONITOR
--- NOTE | 2020-03-14 07:05 | NUR ---
RECEIVED REPORT FROM NIGHT NURSE, PT IS ON ROOM AIR, BED BOUND, AAOX3, IV SITES INTACT AND PATENT ON LEFT HAND G 24, SKIN INTACT. SAFETY MEASURES IN PLACE AND CALL LIGHT WITHIN REACH. WILL CONTINUE TO MONITOR.
[2020-03-14 07:06] LABS: ALBUMIN 3.3 g/dL (3.4-5.0); CARBON DIOXIDE 26.8 mmol/L (21-32); CREATININE 0.7 mg/dL (0.6-1.3); POTASSIUM 3.8 mmol/L (3.5-5.1); TOTAL BILIRUBIN 0.5 mg/dL (0.0-1.0)
--- NOTE | 2020-03-14 07:10 | NUR ---
ENDORSED PATIENT TO DAYSHIFT NURSE AT BEDSIDE FOR CONTINUITY OF CARE. PATIENT IN STABLE CONDITION
[2020-03-14 08:00] VITALS: BP 127/81
--- NOTE | 2020-03-14 08:50 | NUR ---
RESIDENTIAL NURSE [facility] CALLED AT THIS TIME TO GET UPDATES ON PT CONDITION. GAVE REPORT AND WILL CONTINUE TO MONITOR.
[2020-03-14] MEDS: CLINICAL MONITORING MC SCH (09:00)
[2020-03-14 09:24] LABS: BASOPHILS # (AUTO) 0.1 K/uL (0.00-0.22); BASOPHILS % (AUTO) 1.2 % (0.0-2.0); EOSINOPHILS # (AUTO) 0.3 K/uL (0-0.4); EOSINOPHILS % (AUTO) 4.2 % (0.0-4.0); HEMATOCRIT 40.8 % (36-52); HEMOGLOBIN 13.2 g/dL (12.0-18.0); LYMPHOCYTES # (AUTO) 1.9 K/uL (2.0-11.5); LYMPHOCYTES % (AUTO) 29.4 % (20.5-51.1); MEAN CORPUSCULAR HEMOGLOBIN 25 pg (27-31); MEAN CORPUSCULAR HGB CONC 32 g/dL (33-37); MEAN CORPUSCULAR VOLUME 78.4 fL (80-94); MONOCYTES # (AUTO) 0.5 K/uL (0.8-1.0); MONOCYTES % (AUTO) 8.1 % (1.7-9.3); NEUTROPHILS # (AUTO) 3.7 K/uL (1.8-7.7); NEUTROPHILS % (AUTO) 57.1 % (42.2-75.2); PLATELET COUNT (AUTO) 267 K/uL (140-450); RED CELL DISTRIBUTION WIDTH 14.3 % (11.6-13.7); WHITE BLOOD COUNT (AUTO) 6.4 K/uL (4.8-10.8)
[2020-03-14] MEDS: MUPIROCIN CA NASAL 2% 1GM TUBE NS SCH (09:30)
[2020-03-14] MEDS: MULTIVITAMIN 1 TAB PO SCH (09:30)
--- NOTE | 2020-03-14 09:30 | NUR ---
MEDICATIONS DUE GIVEN PT IS ALERT AND ORIENTED. CHECK VITAL SIGNS PRIOR TO MEDICATIONS BP 127/81 WY 83. PT IS STABLE AND ATE ALL HIS FOOD. SAFETY MEASURES IN PLACE, CALL LIGHT WITHIN REACH. WILL CONTINUE TO MONITOR.
[2020-03-14] MEDS: FAMOTIDINE 20 MG TAB PO SCH (09:31)
[2020-03-14] MEDS: LOSARTAN 50 MG TAB PO SCH (09:31)
[2020-03-14] MEDS: CALCIUM CARB/VIT-D 500 MG/200 IU 1 TAB PO SCH (09:31)
[2020-03-14] MEDS: CHLORHEXADINE GLUC 2% CLOTH TP SCH (09:32)
[2020-03-14] MEDS: METOCLOPRAMIDE 10 MG TAB PO SCH ×2 (09:32→12:27)
[2020-03-14] MEDS: PSYLLIUM 12.2 GM/PKT PO SCH (09:32)
[2020-03-14 12:00] VITALS: BP 110/67
--- NOTE | 2020-03-14 12:00 | NUR ---
MADE ROUNDS AND MEDICATIONS DUE GIVEN, PT TOLERATED WELL, CHECK VITAL SIGNS AND PT IS STABLE. WILL CONTIN UE TO MONITOR.
[2020-03-14] MEDS: REMDESIVIR 100MG IV IV SCH (13:41)
--- NOTE | 2020-03-14 17:35 | NUR ---
DISCHARGED INSTRUCTIONS GIVEN TO PT CAREGIVER DEE BOWENS, PT IS TRANSFERRED TO [facility] VIA WHEELCHAIR, ENCOURAGED PT TO CONTINUE MEDICATIONS, SIDE EFFECT AND TO SEEK HELP IN CASE OF EMERGENCIES. REMOVED TELE MONITOR AND RETURNED TO NETBACKUP ADMIN.IV SITES INTACT AND COMPLETE, NO BLEEDING NOTED, CHANGED PT TO GOWN, REMOVED IV BANDS AND RETURNED PT BELONGINGS. PTS CAREGIVER VERBALIZES UNDERSTANDING. PT TRANSFERRED TO [facility]. ESCORTED TO FRONT LOBBY. PT IS STABLE.
== END 2020-03-14 17:35 | disposition home or self-care (01) | DRG 177 ==
LOC: MED 22:28 → EEVIPCON 03-09 00:29 → MTU 03-09 00:29
PROVIDERS: ADMIT Preventive Medicine Preventive Medicine/Occupational Environmental Medicine; ATTEND Preventive Medicine Preventive Medicine/Occupational Environmental Medicine
DX: U07.1 COVID-19 (principal); J12.89 Other viral pneumonia; E88.09 Other disorders of plasma-protein metabolism, not elsewhere classified; G40.909 Epilepsy, unspecified, not intractable, without status epilepticus; I10 Essential (primary) hypertension; I25.10 Atherosclerotic heart disease of native coronary artery without angina pectoris; K59.00 Constipation, unspecified; R13.10 Dysphagia, unspecified; Z22.322 Carrier or suspected carrier of Methicillin resistant Staphylococcus aureus; Z87.828 Personal history of other (healed) physical injury and trauma; Z93.1 Gastrostomy status; R31.9 Hematuria, unspecified; R79.89 Other specified abnormal findings of blood chemistry; R10.13 Epigastric pain; Z88.1 Allergy status to other antibiotic agents; Z88.8 Allergy status to other drugs, medicaments and biological substances
CPT/HCPCS: 36415; 71045; 80048; 80053; 81001; 82550; 82728; 83605; 83615; 83880; 84484; 85025; 85379; 85384; 85610; 85651; 85730; 86140; 87040; 87081; 87086; 87804; 93005; 97110; 97161-GP; 99285; J0696; J1650; J7030; J7060; J8597; Q0092; U0003-CS

== ENCOUNTER 2020-11-22 16:15 | Emergency (ER) | payer OTHER, MEDICAID ==
[~2020-11-22] VITALS: Ht 165.1 cm; Wt 74.8 kg
[~2020-11-22 16:15] MED LIST changes: -ASCO1CAP75 PO; -ATOR20TA40 PO; +CALC-1141 PO; -CARV6.252 PO; -MAGN1.753 PO; -POLY17PD46 PO; -SENN-74 PO; -ZINC220C28 PO
[2020-11-22 16:20] VITALS: BP 161/96
--- NOTE | 2020-11-22 16:25 | NUR ---
55 YO M ERYN FROM [facility] BY AMBULANCE FOR C/C OF GENERALIZED WEAKNESS, FATIGUE, AND FEELING UNWELL. DENIES COVID SYMPTOMS, DENIES CP, DENIES N/V/D, LBM WAS TODAY SOFT AND FORMED, BOWEL SOUNDS NORMOACTIVE THROUGHOUT. PER REPORT PT IS NOT ACTING LIKE HIS NORMAL SELF. PT PLACED IN PT GOWN. IN SERVICE COORDINATOR/PULSE OX IN PLACE. BED LOCKED AND IN LOWEST POSITION, SIDE RAILS X2. MED HX: QUADRIPLEGIC, MILD ID, SEIZURES, BLINDNESS, HEAD TRAUMA
--- NOTE | 2020-11-22 16:42 | NUR ---
ILDEFONSO DOYLE AT BEDSIDE EXAMINING PT
--- NOTE | 2020-11-22 17:04 | NUR ---
roof technician at bedside.
--- NOTE | 2020-11-22 17:08 | NUR ---
LAB AT BEDSIDE
[2020-11-22 17:30] LABS: BASOPHILS # (AUTO) 0.1 K/uL (0.00-0.22); BASOPHILS % (AUTO) 1.5 % (0.0-2.0); EOSINOPHILS # (AUTO) 0.4 K/uL (0-0.4); EOSINOPHILS % (AUTO) 4.8 % (0.0-4.0); HEMATOCRIT 44.2 % (36-52); HEMOGLOBIN 14.4 g/dL (12.0-18.0); LYMPHOCYTES # (AUTO) 1.8 K/uL (2.0-11.5); LYMPHOCYTES % (AUTO) 21.9 % (20.5-51.1); MEAN CORPUSCULAR HEMOGLOBIN 27 pg (27-31); MEAN CORPUSCULAR HGB CONC 33 g/dL (33-37); MEAN CORPUSCULAR VOLUME 81.9 fL (80-94); MONOCYTES # (AUTO) 0.6 K/uL (0.8-1.0); MONOCYTES % (AUTO) 7.3 % (1.7-9.3); NEUTROPHILS # (AUTO) 5.4 K/uL (1.8-7.7); NEUTROPHILS % (AUTO) 64.5 % (42.2-75.2); PLATELET COUNT (AUTO) 252 K/uL (140-450); RED CELL DISTRIBUTION WIDTH 14.7 % (11.6-13.7); WHITE BLOOD COUNT (AUTO) 8.4 K/uL (4.8-10.8)
--- NOTE | 2020-11-22 17:35 | NUR ---
RAD AT BEDSIDE
[2020-11-22 17:38] LABS: APPEARANCE,URINE CLEAR (CLEAR); BILIRUBIN,URINE NEGATIVE (NEGATIVE); BLOOD, URINE NEGATIVE (NEGATIVE); COLOR,URINE YELLOW (YELLOW); LEUKOCYTE ESTERASE ,URINE NEGATIVE (NEGATIVE); NITRITE, URINE NEGATIVE (NEGATIVE); PH,URINE 7.5 (5.0-9.0); UGLUCOSE NEGATIVE (NEGATIVE)
[2020-11-22 17:58] LABS: ALBUMIN 3.6 g/dL (3.4-5.0); ANION GAP 14.2 (8-16); CARBON DIOXIDE 26.8 mmol/L (21-32); CREATININE 0.8 mg/dL (0.6-1.3); TOTAL BILIRUBIN 0.3 mg/dL (0.0-1.0)
--- NOTE | 2020-11-22 18:24 | NUR ---
NOVEL COVID SWAB COLLECTED AND TAKEN TO LAB
--- NOTE | 2020-11-22 19:20 | NUR ---
report given to TIRSO Brewster. Transfer of care at this time.
--- NOTE | 2020-11-22 19:28 | NUR ---
Report received from TIRSO Nava. Transfer of care at this time.
[2020-11-22 21:30] VITALS: BP 103/73
--- NOTE | 2020-11-22 21:30 | NUR ---
Patient discharged with v/s stable. Written and verbal after care instructions given and explained. Patient verbalized understanding. Wheel Chair Assisted with to jail. All questions addressed prior to discharge. Advised to follow up with PMD.
== END 2020-11-22 21:30 | disposition home or self-care (01) ==
LOC: MED 16:15
DX: R53.1 Weakness (principal); R42 Dizziness and giddiness; I51.9 Heart disease, unspecified; Z20.822 Contact with and (suspected) exposure to COVID-19
CPT/HCPCS: 36415; 71045; 80053; 81003; 85025; 93005; 99285; U0003; 81002

== ENCOUNTER 2021-07-20 21:29 | Emergency (ER) | payer OTHER, MEDICAID ==
[~2021-07-20] VITALS: Ht 167.6 cm; Wt 70.3 kg
[~2021-07-20 21:29] MED LIST changes: +CARB15DR30 OT; -CARB15DR5 OT
--- NOTE | 2021-07-20 21:39 | NUR ---
YEN LOGAN. TAKEN TO BED 1
[2021-07-20] MEDS ORDERED: NACL 0.9% 1,000 ML IV ONE (21:40)
[2021-07-20] MEDS ORDERED: ONDANSETRON 4 MG/2 ML VIAL IVP ONE (21:40)
[2021-07-20 21:46] VITALS: BP 165/99
--- NOTE | 2021-07-20 21:47 | NUR ---
56 YO/M ERYN FROM [facility] W C/O OF N/V XTODAY W APPROXIMATELY 7 EPISODES OF VOMITING CLEAR LIQUID. PATIENT PRESENTS AOX3, GCS14 CONFUSED ON DATE, LOCATION, AND REASON HE IS AT HOSPITAL AT TIMES. PATIENT DENIES ANY FEVER, CHILLS, DIARRHEA, CONSTIPATION OR URINARY PROBLEMS. PATIENT DENIES ANY PAIN. BOWEL SOUNDS PRESENT THROUGHOUT, ABDOMEN SOFT, NON-TENDER. PATIENT LAYING IN BED LOCKED IN LOWEST POSITION W X2 SIDERAILS UP, HOB SLIGHTLY ELEVATED. CONNECTED TO MONITOR PT IS TACHYCARDIC AT 108, BP AT 165/99, OTHER VITALS STABLE. BREATHING EVEN AND UNLABORED. NAD NOTED, WILL CONTINUE TO MONITOR. PMH:BLIND, SEIZURES, HTN, CEREBRAL PALSY, TBI ALLERGIES: TETRACYCLINE, MACROLIDES, KETOLIDES, ERYTHROMYCIN, AMINOGLYCOSIDES, GENTAMYCIN
--- NOTE | 2021-07-20 22:17 | NUR ---
PATIENT VOMITED X2 EPISODES OF CLEAR LIQUID.
[2021-07-20 22:24] LABS: BASOPHILS % (AUTO) 0.3 % (0.0-2.0); EOSINOPHILS # (AUTO) 0.1 K/uL (0-0.4); EOSINOPHILS % (AUTO) 0.7 % (0.0-4.0); HEMATOCRIT 44.8 % (36-52); HEMOGLOBIN 14.6 g/dL (12.0-18.0); LYMPHOCYTES % (AUTO) 9.2 % (20.5-51.1); MEAN CORPUSCULAR HEMOGLOBIN 28 pg (27-31); MEAN CORPUSCULAR HGB CONC 33 g/dL (33-37); MEAN CORPUSCULAR VOLUME 84.8 fL (80-94); MONOCYTES # (AUTO) 0.5 K/uL (0.8-1.0); MONOCYTES % (AUTO) 4.8 % (1.7-9.3); NEUTROPHILS # (AUTO) 9.2 K/uL (1.8-7.7); PLATELET COUNT (AUTO) 262 K/uL (140-450); RED BLOOD CELL COUNT(AUTO) 5.28 MIL/uL (4.20-6.10); WHITE BLOOD COUNT (AUTO) 10.8 K/uL (4.8-10.8)
[2021-07-20 22:41] LABS: ALBUMIN 3.6 g/dL (3.4-5.0); CARBON DIOXIDE 25.8 mmol/L (21-32); CREATININE 0.9 mg/dL (0.6-1.3); POTASSIUM 3.8 mmol/L (3.5-5.1); TOTAL BILIRUBIN 0.3 mg/dL (0.0-1.0)
--- NOTE | 2021-07-20 23:58 | NUR ---
RECEIVED VERBAL CONSENT FROM PT SISTER LISTED ON PT CHART BOUBACAR KAPADIAERETE FOR PT CT VALADEZ OF ABDOMEN AND PELVIS WITH IV CONTRAST. .
--- NOTE | 2021-07-21 00:26 | NUR ---
PT LAYING IN BED LOCKED INLOWEST POSITION W X2 SIDERAILS UP FOR PT SAFETY. VSS ON MONITOR. DENIES N OR PAIN. PATIENT PLACED IN GOWN AND REPORSITIONED.
--- NOTE | 2021-07-21 01:52 | NUR ---
PT RETURN FROM CT
--- NOTE | 2021-07-21 02:08 | NUR ---
PT APPEAR TO BE RESTING W EYES CLOSED. BED LOCKED IN LOWEST POSITION W X2 SIDERAILS UP FOR PATIENT SAFETY. PT CONNECTED TOMONITOR W VSS. BREATHING EVEN AND UNLABORED. NAD NOTED, WILL CONTINUE TO MONITOR.
--- NOTE | 2021-07-21 03:42 | NUR ---
Dr. Roy examining patient.
[2021-07-21] MEDS ORDERED: SODIUM PHOSPHATE 118 ML ENEM RC STA (03:53)
--- NOTE | 2021-07-21 05:15 | NUR ---
PROVIDED PATIENT W PERINEAL CARE. PLACED IN CLEAN FRESH DIAPER, GOWN AND PLANKETS. REPOSITIONED FOR COMFORT. DENIES ANY PAIN.
--- NOTE | 2021-07-21 05:15 | NUR ---
PER ERMD PT OK FOR DISCHARGE AFTER PASSING "ONE GOOD BOWEL MOVEMENT." ENEMA ADMINISTERED.
--- NOTE | 2021-07-21 07:10 | NUR ---
Pt report given to TIRSO BENAVIDES. Transfer of PT care at this time.
[2021-07-21 07:15] VITALS: BP 160/71
--- NOTE | 2021-07-21 07:15 | NUR ---
pt aox4, gcs15. hx cerebral palsy. chest rise fall equal. skin pwd. no distress.denies pain. pt able to turn self. no wounds note. breathing even unlabored. pt denies complaints. updated regarding plan care.
--- NOTE | 2021-07-21 08:00 | NUR ---
pt has small bm. no blood, pt cleaned.
--- NOTE | 2021-07-21 08:35 | NUR ---
iv removed cath intact. tx to facility here at bedside.
--- NOTE | 2021-07-21 08:35 | NUR ---
Patient discharged with v/s stable. Written and verbal after care instructions given and explained. Patient verbalized understanding. Wheel Chair Assisted with to car. All questions addressed prior to discharge. Advised to follow up with PMD.
== END 2021-07-21 08:35 | disposition home or self-care (01) ==
LOC: MED 21:29
DX: K59.00 Constipation, unspecified (principal); R11.2 Nausea with vomiting, unspecified; I10 Essential (primary) hypertension; Z79.899 Other long term (current) drug therapy; Z88.1 Allergy status to other antibiotic agents; Z88.8 Allergy status to other drugs, medicaments and biological substances; Z91.018 Allergy to other foods
CPT/HCPCS: 36415; 74177; 80053; 83690; 85025; 96361; 96374; 99285; J2405; J7030; Q9967

== ENCOUNTER 2021-12-09 11:25 | Inpatient (IN) | payer OTHER, MEDICAID, SELFPAY ==
[~2021-12-09] VITALS: Ht 175.3 cm; Wt 75.3 kg
--- NOTE | 2021-12-09 11:30 | NUR ---
PT BIB BLS RUN FROM BOARD AND CARE C/O COFFEE GROUND EMESIS. ON ARRIVAL PT ALTERED, PALE COOL DIAPHORETIC, BREATHING TACHYPNEIC, ABDOMEN FIRM AND DISTENDED WITH COFFEE GROUND EMESIS NOTED ON CHEST AND AROUND MOUTH. OG TUBE INSERTED 1200 ML OF COFFEE GROUND NOTED. IV INSERTED TO RIGHT FOOT #[id number].
--- NOTE | 2021-12-09 11:35 | NUR ---
pt placed in bed 10 at this time
--- NOTE | 2021-12-09 11:35 | NUR ---
arianna swabbed at this time
--- NOTE | 2021-12-09 11:40 | NUR ---
UNABLE TO INSERTED NGTUBE, MD ALSO WITHOUT SUCCESS. ER MD INSERTED OG TUBE PLACED TO SUCTION WITH LARGE AMOUNT OF GASTRIC CONTENT
[2021-12-09] MEDS ORDERED: PANTOPRAZOLE 40 MG INJ VIAL ONE ×2 (11:49→23:55)
--- NOTE | 2021-12-09 11:50 | NUR ---
INSERTED RIGHT FEMORAL TRIPLE LUMEN, BLOOD DRAWN AND SENT TO LAB.
[2021-12-09 12:03] VITALS: BP 99/55
[2021-12-09] MEDS ORDERED: PANTOPRAZOLE 40 MG INJ VIAL IVP ONE (12:05)
[2021-12-09 12:59] LABS: BASOPHILS % (AUTO) 0.1 % (0.0-2.0); HEMATOCRIT 40.3 % (36-52); HEMOGLOBIN 13.1 g/dL (12.0-18.0); LYMPHOCYTES # (AUTO) 0.8 K/uL (2.0-11.5); LYMPHOCYTES % (AUTO) 5.4 % (20.5-51.1); MEAN CORPUSCULAR HEMOGLOBIN 27 pg (27-31); MEAN CORPUSCULAR HGB CONC 32 g/dL (33-37); MEAN CORPUSCULAR VOLUME 83.6 fL (80-94); MONOCYTES # (AUTO) 1.3 K/uL (0.8-1.0); NEUTROPHILS # (AUTO) 12.2 K/uL (1.8-7.7); NEUTROPHILS % (AUTO) 85.5 % (42.2-75.2); PLATELET COUNT (AUTO) 135 K/uL (140-450); RED BLOOD CELL COUNT(AUTO) 4.83 MIL/uL (4.20-6.10); RED CELL DISTRIBUTION WIDTH 15.1 % (11.6-13.7); WHITE BLOOD COUNT (AUTO) 14.2 K/uL (4.8-10.8)
--- NOTE | 2021-12-09 12:59 | NUR ---
PT INCONTINENT OF STOOL, LARGE AMOUNT OF STOOL WITH BRIGHT RED BLOOD NOTED. ER MADE AWARE. OGTUBE TO LIS. SAFETY MAINTAINED.
[2021-12-09 13:29] LABS: ALBUMIN 3.2 g/dL (3.4-5.0); ANION GAP 16.5 (8-16); CARBON DIOXIDE 23.4 mmol/L (21-32); CREATININE 1.4 mg/dL (0.6-1.3); POTASSIUM 3.9 mmol/L (3.5-5.1); TOTAL BILIRUBIN 0.5 mg/dL (0.0-1.0)
--- NOTE | 2021-12-09 13:47 | NUR ---
EKG READS SINUS TACH AT 117 HR
[2021-12-09] MEDS ORDERED: NACL 0.9% 1,000 ML IV ONE ×2 (14:10)
[2021-12-09] MEDS ORDERED: CEFEPIME 1,000 MG in DEXTROSE 5% 50 ML IV ONE (14:10)
[2021-12-09] MEDS: PANTOPRAZOLE 80 MG in NACL 0.9% 100 ML IVP SCH ×2 (14:27→23:59)
[2021-12-09] MEDS ORDERED: CEFEPIME 1,000 MG VIAL ONE (14:28)
--- NOTE | 2021-12-09 15:40 | NUR ---
OGTUBE ACCIDENTALLY PULLED OUT IN CT REINSERTED
--- NOTE | 2021-12-09 15:48 | NUR ---
PT BACK FROM CT, INCONTINENT OF STOOL AND URINE, CLEANED AND REPOSITIONED.
[2021-12-09] MEDS ORDERED: NACL 0.9% 1,000 ML IV SCH (18:35)
--- NOTE | 2021-12-09 18:38 | NUR ---
PT INCONTINENT OF LARGE AMOUNT OF STOOL, CLEANED AND REPOSITIONED. PT HYPOTENSIVE, 1L BOLUS INFUSING PER ORDER
--- NOTE | 2021-12-09 18:40 | NUR ---
OG TUBE PULLED OUT WHILE TURNING PT.
--- NOTE | 2021-12-09 18:41 | NUR ---
DR SILVA AT BEDSIDE FOR ASSESSMENT.
[2021-12-09] MEDS ORDERED: NOREPINEPHRINE 4 MG/4 ML VIAL IV ONE ×2 (18:51→20:46)
--- NOTE | 2021-12-09 19:00 | NUR ---
PT REMAINS HYPOTENSIVE, SPOKE TO DR MAX UPFGRADED TO ICU, LEVOPHED STARTED PER ORDER
--- NOTE | 2021-12-09 19:24 | NUR ---
TRANSFER OF CARE REPORT RECIEVED BY CHAYITO CHAHAL
--- NOTE | 2021-12-09 20:02 | NUR ---
Patient will be admitted to care of DR MAX. Admited to ICU. Will go to room 3. Belongings list completed. Report to FLORENCE CHAHAL.
--- NOTE | 2021-12-09 20:05 | NUR ---
REPORT RECEIVED FROM TY, ER NURSE. PATIENT ICU TRANSFER ETA 10 MINUTES.
[2021-12-09] MEDS: NOREPINEPHRINE 8 MG in DEXTROSE 5% 250 ML IV PRN (20:10)
[2021-12-09] MEDS ORDERED: VANCOMYCIN PER PHARMACY MC PRN (20:15)
--- NOTE | 2021-12-09 20:20 | NUR ---
RECEIVED PATIENT FROM SOLUTION STRATEGIST, SAL, VIA KIRILL. UPON ARRIVAL, PATIENT WAS SLEEPING SUPINE IN SEMI-FOWLERS POSITION. PATIENT AWAKES TO VOICE AND ABLE TO PROVIDE SOME INFORMATION BUT SPEECH IS GARBLED AND INAPPROPRIATE AT TIMES. PATIENT ON ROOM AIR WITH O2 SATURATION AT 97%. ACCESS SITES INCLUDE: RIGHT FOOT, LEFT HAND AND RIGHT FEMORAL TRIPLE LUMEN INFUSING LEVOPHED 10MCG AND D5 1/2 NS AT 100ML/HR. PATIENT CONNECTED TO CARDIAC AND SPO2 MONTIORING. PATIENT DOES NOT APPEAR TO BE IN ANY DISTRESS OR PAIN AT THIS TIME. WILL CONTINUE TO MONITOR.
[2021-12-09] MEDS: DEXT 5% / NACL 0.45% 1,000 ML IV SCH (20:47)
[2021-12-09 21:59] LABS: APPEARANCE,URINE CLEAR (CLEAR); BILIRUBIN,URINE NEGATIVE (NEGATIVE); BLOOD, URINE 2+ (NEGATIVE); COLOR,URINE YELLOW (YELLOW); LEUKOCYTE ESTERASE ,URINE NEGATIVE (NEGATIVE); NITRITE, URINE NEGATIVE (NEGATIVE); PH,URINE 6.5 (5.0-9.0); UGLUCOSE NEGATIVE (NEGATIVE)
[2021-12-09 22:00] VITALS: BP 114/56
[2021-12-09] MEDS ORDERED: VANCOMYCIN 1GM/DEXT 5% PREMIX 200 ML IV SCH (22:00)
[2021-12-09] MEDS ORDERED: VANCOMYCIN 1,000 MG VIAL ONE (22:09)
[2021-12-09] MEDS ORDERED: VANCOMYCIN 500 MG VIAL ONE (22:10)
--- NOTE | 2021-12-09 22:15 | NUR ---
STRAIGHT CATHERIZATION PERFORMED FOR URINE CULTURE. EMPTIED 200ML OF CLEAR, YELLOW URINE. SPECIMEN SENT TO LAB.
[2021-12-09 22:23] LABS: RBC,URINE 20-50 /HPF (0-5); WBC,URINE 0-5 /HPF (0-5)
--- NOTE | 2021-12-09 22:45 | NUR ---
PATIENT HAD LARGE, BROWN, AND SOFT/WATERY BOWEL MOVEMENT W/ PAD FULL OF URINE. JOSÉ ANTONIO-CARE AND PM CARE PERFORMED AND CHG BATH GIVEN.
--- NOTE | 2021-12-09 22:45 | NUR ---
REMOVED PERIPHERAL IV LINES IN LEFT HAND AND RIGHT FOOT.
[2021-12-09 23:00] VITALS: BP 95/49
[2021-12-09] MEDS ORDERED: VANCOMYCIN 500 MG in DEXTROSE 5% 100 ML IV SCH (23:30)
[2021-12-10] VITALS (24 sets, daily range): BP systolic 91–129; BP diastolic 43–75
[2021-12-10] MEDS: PANTOPRAZOLE 80 MG in NACL 0.9% 100 ML IVP SCH ×2 (00:03→08:45)
[2021-12-10] MEDS ORDERED: CEFEPIME 1,000 MG VIAL ONE (01:58)
[2021-12-10] MEDS: CEFEPIME 1,000 MG in DEXTROSE 5% 50 ML IV SCH ×2 (02:16→14:12)
[2021-12-10] MEDS: DEXT 5% / NACL 0.45% 1,000 ML IV SCH ×3 (03:22→19:30)
[2021-12-10] MEDS ORDERED: NOREPINEPHRINE 4 MG/4 ML VIAL IV ONE (05:56)
--- NOTE | 2021-12-10 07:25 | NUR ---
REPORT GIVEN TO RADHA CHAHAL FOR CONTINUITY OF CARE.
--- NOTE | 2021-12-10 07:30 | NUR ---
REPORT RECEIVED FROM TIRSO HENRIQUEZ.
--- NOTE | 2021-12-10 08:00 | NUR ---
PATIENT RESPONDS TO QUESTIONS APPROPRIATELY. DENIES PAIN. DENIES NAUSEA. RIGHT FEMORAL TLC IN PLACE. LEVOPHED AT 14MCG/MIN, PROTONIX AT 8MG/HR, D5.45NS AT 100ML/HR. PATIENT IS LEGALLY BLIND. RIGHT PUPIL 3MM SLOW TO REACT. LEFT PUPIL 4MM NO REACTION TO LIGHT NOTED. PATIENTS BILATERAL ARMS ARE CONTRACTED. RIGHT FOOT DROP. NO EDEMA NOTED. DP PULSES PALPABLE BUT WEAK. SKIN INTACT WITHOUT BREAKDOWN. HEART SOUNDS REGULAR. MONITOR SHOWS ST. ANTERIOR/LATERAL BREATH SOUNDS WITH RHONCHI BILATERALLY. PATIENT ON RA WITH SAO2 97%. NONPRODUCTIVE COUGH. ABDOMEN SOFT, ROUND, HYPOACTIVE BOWEL SOUNDS. PATIENT VERBALIZES SOME ABDOMINAL TENDERNESS WITH PALPATION. PATIENT INCONTINENT OF URINE. PATIENT INCONTINENT OF STOOL. BM BLACK, TARRY.
--- NOTE | 2021-12-10 08:30 | NUR ---
LEVOPHED DECREASED TO 12MCG/MIN. BP103/69(86).
[2021-12-10] MEDS ORDERED: LORazepam 2 MG/ML VIAL IVP PRN (09:05)
[2021-12-10] MEDS ORDERED: MAGNESIUM HYDROXIDE 2400 MG/30 ML UDC PO PRN (09:05)
[2021-12-10] MEDS ORDERED: ACETAMINOPHEN 325 MG TAB PO PRN (09:05)
[2021-12-10] MEDS ORDERED: ONDANSETRON 4 MG/2 ML VIAL IVP PRN (09:05)
--- NOTE | 2021-12-10 09:23 | NUR ---
PATIENT HAS BEEN SCREENED AND CATEGORIZED HIGH NUTRITION RISK. PATIENT WILL BE SEEN WITHIN 1-2 DAYS OF ADMISSION. REFERRAL RECEIVED FOR VOMITING OVER THREE DAYS [address]
--- NOTE | 2021-12-10 09:49 | NUR ---
PT. WITH LOW TIMOTHY SCALE AT MODERATE RISK, CONTINUE TO FOLLOW PRESSURE INJURY PREVENTION INTERVENTIONS. -POSITIONING: TURN AND REPOSITION PATIENT Q 2H OR SOONER USE PILLOWS TO KEEP BONY PROMINENCES FROM DIRECT CONTACT WITH SURFACES USE REPOSITIONING WEDGES TO PROVIDE 30-DEGREE ANGLE FOR SIDE LYING POSITIONS OFFLOADING OR FOAM DRESSING TO ALL TUBING TO PREVENT MEDICAL DEVICES RELATED PRESSURE INJURY -RE-EVALUATING AND MANAGING INCONTINENCE MONITOR SKIN CONDITION DURING POSITION CHANGE DO NOT MASSAGE REDNESS, BONY PROMINENCES, DO NOT USE DONUT-TYPE DEVICES FREQUENT JOSÉ ANTONIO-CARE AND PROVIDE BARRIER CREAMS PRN IF SOILING MOISTURE CONTROL BY OFFER BED HATFIELD/URINAL /ABSORBENT PAD TO WICK AND HOLD MOISTURE. MAY OBTAIN ORDER FOR FLEX SEAL, RECTAL BAG OR WALLS CATHETER UNLESS OTHERWISE CONTRAINDICATED KEEP SKIN DRY AND PROTECT FROM FRICTION -MANAGE FRICTION/SHEAR/MOBILITY KEEP HOB AT THE LOWEST LEVEL OF ELEVATION NO MORE THAN 30 DEGREE UNLESS OTHERWISE CONTRAINDICATED USE LIFT SHEET OR TRANSFER DEVICE TO MOVE PATIENT AND PREVENT LATERAL SHEER. CONSIDER TRAPEZE IF APPROPRIATE PROTECT HEELS, ELBOWS BONY PROMINENCES WITH SKIN BERRIES OR FOAM DRESSING IF EXPOSED TO FRICTION OFFLOAD BILATERAL HEELS BY PLACING PILLOWS UNDER CALVES AT ALL TIMES, UNLESS OTHERWISE CONTRAINDICATED -PRESSURE REDISTRIBUTION SURFACE THERAPY -NUTRITION: PLEASE FOLLOW RD RECOMMENDATIONS AND OFFER NUTRITION SUPPLEMENTS IF ORDERED. PLEASE CONTACT WOUND CARE NURSE FOR ANY QUESTION AND CHANGE OF WOUND CONDITION.
--- NOTE | 2021-12-10 10:00 | NUR ---
LEVOPHED DECREASED TO 10MCG/MIN. BP STABLE 127/65(77).
--- NOTE | 2021-12-10 10:00 | NUR ---
CONDOM CATHER PLACED FOR I&0. PATIENT TOLERATED.
--- NOTE | 2021-12-10 11:01 | NUR ---
DC PLANN[age] YRS OLD MALE PATIENT WS ADMITTED FROM [facility] WITH A DX OF LEUKOCYTOSIS POSSIBLE GI BLEED. PT HAS A HX OF CAD, HTN, SEIZURE, HEAD INJURY, DYSPHAGIA AND G-TUBE . CXR SHOWED RIGHT UPPER LOBE BIBASILAR ATELECTASIS. RAPID COVID TEST NEGATIVE. BP IS LOW 80/47 ADMITTED TO ICU FOR LEVOPHED DRIP. BLOOD AND URINE CULTURE PENDING. LACTIC ACID 4.3 -3.7 ADMINISTERED IVF, IV ABX ROCEPHIN ,CONTINUE HOME MEDS. CONSULTED WITH ID,GI, CARDIO,PULMO AND NEPHRO. DC PLAN PER CONSULTANTS RECOMMENDATIONS. PATIENT IS WITH [facility] VIDEO GAME ENGINEER JOAQUIN STEVENS [phone] AND DECISION MAKER IS HIS BROTHER KAIT BRADFORD. CM TO FOLLOW. Addendum: 12/12/21 at 1258 by Estrella Adler RN DC PLANNING: PATIENT HAS A DC ORDER TO GO TO SNF TO COMPLETE IV ABX FOR 4 DAYS. CALLED [facility] SPOKE WITH KEREN AND [facility] VIDEO GAME ENGINEER JOAQUIN [phone] AND PT'S BROTHER CARBALLO ED. PROVIDE THE LIS OF [facility] . PER [facility] VIDEO GAME ENGINEER AND BROTHER SUZETTE CHOSE [facility]. FAXED ALL PAPERWORK TO [facility] [phone] CM TO FOLLOW Addendum: 12/12/21 at 1436 by Estrella Adler RN DC PLANNING: PATIENT GOT ACCEPTED AT [facility] [address] [facility] [facility] [place] [id number] # TO GIVE REPORT [phone] KARTHIK ARRANGED TRANSPORT NEWSPAPER COPY EDITOR TIME 4 PM NOTIFIED PRIMO ROBLES RN
[2021-12-10 12:22] LABS: BASOPHILS # (AUTO) 0.1 K/uL (0.00-0.22); BASOPHILS % (AUTO) 0.4 % (0.0-2.0); EOSINOPHILS # (AUTO) 0.3 K/uL (0-0.4); EOSINOPHILS % (AUTO) 1.8 % (0.0-4.0); HEMATOCRIT 38.2 % (36-52); HEMOGLOBIN 12.4 g/dL (12.0-18.0); LYMPHOCYTES # (AUTO) 1.9 K/uL (2.0-11.5); LYMPHOCYTES % (AUTO) 10.9 % (20.5-51.1); MEAN CORPUSCULAR HEMOGLOBIN 27 pg (27-31); MEAN CORPUSCULAR HGB CONC 32 g/dL (33-37); MEAN CORPUSCULAR VOLUME 83.9 fL (80-94); MONOCYTES # (AUTO) 2.5 K/uL (0.8-1.0); NEUTROPHILS # (AUTO) 12.2 K/uL (1.8-7.7); NEUTROPHILS % (AUTO) 71.9 % (42.2-75.2); PLATELET COUNT (AUTO) 193 K/uL (140-450); RED BLOOD CELL COUNT(AUTO) 4.55 MIL/uL (4.20-6.10); RED CELL DISTRIBUTION WIDTH 15.3 % (11.6-13.7); WHITE BLOOD COUNT (AUTO) 16.9 K/uL (4.8-10.8)
[2021-12-10] MEDS: METOCLOPRAMIDE 10 MG TAB PO SCH ×2 (12:35→16:46)
[2021-12-10 12:57] LABS: ANION GAP 16.4 (8-16); CARBON DIOXIDE 19.2 mmol/L (21-32); POTASSIUM 3.6 mmol/L (3.5-5.1)
--- NOTE | 2021-12-10 14:19 | NUR ---
Attempted to see pt. for swallow evaluation, however per nsg pt. with scheduled EGD. Pt. unable to eat at this time. Will follow up tomorrow if appropriate. RN aware.
[2021-12-10] MEDS ORDERED: fentaNYL citrate 0.05 MG/ML VIAL ONE (14:30)
[2021-12-10] MEDS ORDERED: diphenhydrAMINE 50 MG/ML VIAL ONE (14:31)
[2021-12-10] MEDS ORDERED: MIDAZOLAM 5 MG/5 ML VIAL ONE (14:31)
--- NOTE | 2021-12-10 16:00 | NUR ---
EGD COMPLETE BY DR. RIVERA. PATIENT RECEIVED VERSED 2MG AND FENTANYL 50MG FOR PROCEDURE. PATIENT TOLERATED WELL AND RESTING COMFORTABLY. ORDER RECEIVED TO DC PROTONIX INFUSION AND START PROTONIX 40MG IV Q 12HR. WILL COMPLETE SWALLOW EVALUATION IN AM.
[2021-12-10] MEDS ORDERED: fentaNYL citrate 0.05 MG/ML VIAL IVP ONE ×2 (16:10→16:15)
[2021-12-10] MEDS ORDERED: MIDAZOLAM 2 MG/2 ML VIAL IVP ONE (16:10)
--- NOTE | 2021-12-10 17:45 | NUR ---
LEVOPHED WEANED DOWN TO 7 MCG/MIN. PATIENT STABLE WITH BP 105/55(72).
--- NOTE | 2021-12-10 19:37 | NUR ---
RECEIVED REPORT FROM TIRSO GARCIA FOR CONTINUATION OF CARE.
--- NOTE | 2021-12-10 19:40 | NUR ---
REPORT GIVEN TO TIRSO CARDONA. PATIENT STAABLE.
--- NOTE | 2021-12-10 19:46 | NUR ---
PATIENT GCS15. LAYING SUPINE- SEMI FOWLERS. LEVO RUNNING AT 7MCG THROUGH R FEMORAL CENTRAL LINE AND 150ML/HR OF 5% DEXTROSE AND 0.45% NS RUNNING. 10CC FLUSHED THROUGH THE TRIPLE LUMEN- PATENT, NO REDNESS NOTED, NO SWELLING, NO DISCHARGE, AND PATIENT HAS THE CONDOM CATHETER ON PATIENT. SAFETY MEASURES ARE IN PLACE, ATTACHED TO MONITORS, AND WILL CONTINUE TO MONITOR PATIENT.
[2021-12-10] MEDS: PANTOPRAZOLE 40 MG INJ VIAL IVP SCH (20:59)
[2021-12-10] MEDS ORDERED: VITAMIN D3 PO SCH (21:00)
[2021-12-10] MEDS ORDERED: [UNRECOGNIZED DRUG - OTHER] PO SCH (21:00)
[2021-12-10] MEDS ORDERED: CALCIUM CARBONATE PO SCH (21:00)
[2021-12-10] MEDS: FAMOTIDINE 20 MG TAB PO SCH (21:00)
[2021-12-10] MEDS ORDERED: CALCIUM CARB/VIT-D 500 MG/200 IU 1 TAB PO SCH (21:00)
[2021-12-10] MEDS ORDERED: NON-FORMULARY ITEM (Ranitidine HCl (Ranitidine Hcl) 1 CAP) PO SCH (21:00)
[2021-12-10] MEDS: NOREPINEPHRINE 8 MG in DEXTROSE 5% 250 ML IV PRN (21:58)
[2021-12-11] VITALS (21 sets, daily range): BP systolic 90–121; BP diastolic 45–78
[2021-12-11] MEDS: CEFEPIME 1,000 MG in DEXTROSE 5% 50 ML IV SCH ×2 (02:36→14:17)
[2021-12-11] MEDS: DEXT 5% / NACL 0.45% 1,000 ML IV SCH (05:58)
[2021-12-11 06:01] LABS: BASOPHILS # (AUTO) 0.1 K/uL (0.00-0.22); BASOPHILS % (AUTO) 0.5 % (0.0-2.0); EOSINOPHILS # (AUTO) 0.5 K/uL (0-0.4); HEMATOCRIT 32.5 % (36-52); HEMOGLOBIN 10.7 g/dL (12.0-18.0); LYMPHOCYTES % (AUTO) 19.3 % (20.5-51.1); MEAN CORPUSCULAR HEMOGLOBIN 27 pg (27-31); MEAN CORPUSCULAR HGB CONC 33 g/dL (33-37); MEAN CORPUSCULAR VOLUME 83.5 fL (80-94); MONOCYTES # (AUTO) 1.1 K/uL (0.8-1.0); MONOCYTES % (AUTO) 10.4 % (1.7-9.3); NEUTROPHILS # (AUTO) 6.8 K/uL (1.8-7.7); NEUTROPHILS % (AUTO) 64.8 % (42.2-75.2); PLATELET COUNT (AUTO) 183 K/uL (140-450); RED BLOOD CELL COUNT(AUTO) 3.89 MIL/uL (4.20-6.10); RED CELL DISTRIBUTION WIDTH 15.2 % (11.6-13.7); WHITE BLOOD COUNT (AUTO) 10.4 K/uL (4.8-10.8)
[2021-12-11 06:11] LABS: PROTHROMBIN TIME 10.4 secs (10.8-13.4)
[2021-12-11 06:17] LABS: ANION GAP 9.3 (8-16); CARBON DIOXIDE 27.8 mmol/L (21-32); CREATININE 0.6 mg/dL (0.6-1.3); POTASSIUM 3.1 mmol/L (3.5-5.1)
[2021-12-11] MEDS ORDERED: KCL 20 MEQ/WATER INJ PREMIX 200 ML IV SCH (06:50)
[2021-12-11 07:00] LABS: MAGNESIUM 1.8 mg/dL (1.8-2.4); PHOSPHORUS 1.8 mg/dL (2.5-4.9)
--- NOTE | 2021-12-11 07:06 | NUR ---
report to Jennifer TIRSO for continuation of care.
--- NOTE | 2021-12-11 07:15 | NUR ---
REPORT RECEIVED FROM TIRSO CARDONA.
--- NOTE | 2021-12-11 08:00 | NUR ---
K+ 3.1 ORDER FOR 40MEQ IV ORDERED. STARTED INFUSION OVER 4 HOURS. LEVOPHED AT 6MCG/MIN DECREASED TO 4MCG/MIN. BP 119/84(93).
[2021-12-11] MEDS: VANCOMYCIN 1,000 MG in DEXTROSE 5% 250 ML IV SCH ×3 (08:09→23:07)
[2021-12-11] MEDS: PANTOPRAZOLE 40 MG INJ VIAL IVP SCH ×2 (08:12→20:25)
--- NOTE | 2021-12-11 08:30 | NUR ---
PATIENT AWAKE AND RESPONDS APPROPRIATELY TO QUESTIONS. FOLLOWS COMMANDS. ARMS CONTRACTED BILATERALLY. FOOT DROP NOTED. MOBILITY LIMITED. HEART SOUNDS REGULAR. MONITOR SHOWS SR. PATIENT ON RA WITH SAO2 99%. ANTERIOR/LATERAL BREATH SOUNDS DIMINISHED. NONPRODUCTIVE COUGH NOTED. HYPOACTIVE BOWEL SOUNDS. ABDOMEN SOFT AND NONTENDER. +DP PULSES BILATERALLY. NO EDEMA NOTED. SCD HOSE IN PLACE. RIGHT FEMORAL TLC WITH D5.45NS AT 100ML/HR, LEVOPHED AT 4MCG/MIN, POTASSIUM INFUSING AT 50ML/HR(10MEQ/HR).
[2021-12-11] MEDS: PSYLLIUM 12.2 GM/PKT PO SCH (09:00)
[2021-12-11] MEDS: MULTIVITAMIN/MINERALS 1 TAB PO SCH (09:00)
[2021-12-11] MEDS ORDERED: NON-FORMULARY ITEM (Multivit-Min/Iron Fum/Folic AC (Multi-Vitamin-Minerals Tablet) 1 TAB) PO SCH (09:00)
[2021-12-11] MEDS: FAMOTIDINE 20 MG TAB PO SCH (09:00)
[2021-12-11] MEDS ORDERED: LOSARTAN 50 MG TAB PO SCH (09:00)
[2021-12-11] MEDS: METOCLOPRAMIDE 10 MG TAB PO SCH ×3 (09:00→17:32)
--- NOTE | 2021-12-11 09:00 | NUR ---
WALLS PLACED TO MONITOR STRICT I&O. PATIENT TOLERATED WELL. URINE CLEAR PINK. AM CARE COMPLETE. TLC DRESSING CHANGED DUE TO LOOSE DRESSING. LEVOPHED DECREASED TO 2MCG/MIN BP 121/78(96).
[2021-12-11] MEDS ORDERED: POTASSIUM PHOSPHATE 15 MM in NACL 0.9% 250 ML IV SCH (10:00)
--- NOTE | 2021-12-11 10:15 | NUR ---
CALLED DR. Avril WEISS FOR ORDER CLARIFICATION. PATIENT CURRENTLY RECEIVING POTASSIUM CHLORIDE FOR REPLACEMENT OF K+ 3.1. DR. WEISS ORDERED POTASSIUM PHOSPHATE. RECEIVED ORDER TO STOP POTASSIUM CHLORIDE AND GIVE POTASSIUM PHOSPATE. POTASSIUM CHLORIDE STOPPED AND 60ML WASTED. PATIENT RECEIVED APPROXIMATELY 30 MEQ. POTASSIUM PHOSPHATE INFUSION STARTED.
--- NOTE | 2021-12-11 12:00 | NUR ---
LEVOPHED TURNED OFF. BP 110/57(82). PATIENT STABLE.
--- NOTE | 2021-12-11 12:03 | NUR ---
12/11/21 RD INITIAL ASSESSMENT COMPLETED PLEASE REFER TO NUTRITION ASSESSMENT UNDER CARE ACTIVITY FOR ESTIMATED NUTRITIONAL NEEDS. 1. WHEN/IF MEDICALLY APPROPRIATE, RECOMMEND CARDIAC DIET WITH TEXTURE MODIFICATION PER SPEECH THERAPIST 2. MONITOR GI SYMPTOMS 3. RD TO FOLLOW-UP 3-5 DAYS, MODERATE RISK CRYS BRADSHAW RD
[2021-12-11] MEDS ORDERED: MAG SULF 2000 MG/WATER PREMIX 50 ML IV SCH (15:00)
[2021-12-11] MEDS ORDERED: MUPIROCIN CA NASAL 2% 1GM TUBE NS SCH (17:00)
--- NOTE | 2021-12-11 18:10 | NUR ---
PT EATING W/ 1:1 FEEDER. ATE 50% OF MEAL. TOLERATED WELL. WILL CONTINUE TO MONITOR.
--- NOTE | 2021-12-11 19:08 | NUR ---
REPORT GIVEN TO TIRSO COOK. PATIENT STABLE.
--- NOTE | 2021-12-11 19:20 | NUR ---
RECEIVED REPORT FROM DAY SHIFT NURSE, ASSUMED CARE. PATIENT OBSERVED IN BED RESTING COMFORTABLY, DENIED PAIN, AOX4, BREATHING AT RA O2 SAT 99%, BREATHING EVEN AND UNLABORED IN NO ACUTE DISTRESS. RUNNING D5 1/2 NS AT 50 ML/HR VIA RIGHT CENTRAL FEMORAL TLC, CATHETER SITE DRY AND INTACT WITH NO SIGNS OF INFECTION. WALLS CATHETER IN PLACE DRAINING TO GRAVITY WITH VISIBLE CLEAR YELLOW URINE. PT NOTED TO HAVE RIGHT FOOT DROP AND CONTRACTED IN UPPER EXTREMITIES. ALL SAFETY MEASURES IN PLACE, CALL LIGHT WITHIN REACH, WILL CONTINUE TO CLOSELY MONITOR AND FOLLOW POC.
--- NOTE | 2021-12-11 23:00 | NUR ---
DR. MAX MADE AWARE THAT PT HAS BEEN OFF LEVOPHED SINCE NOON WITH STABLE BP. DR. MAX GAVE ORDER TO DOWNGRADE PT TO TELE UNIT.
--- NOTE | 2021-12-11 23:39 | NUR ---
PT CONTINUES SLEEPING COMFORTABLY WITH EYES CLOSED IN NO APPARENT ACUTE DISTRESS, BREATHING AT RA O2 SAT 98%. VANCOMYCIN RUNNING PER ORDERS THROUGH R FEMORAL CENTRAL TLC LINE. ALL SAFETY MEASURES IN PLACE, WILL CONTINUE TO CLOSELY MONITOR AND FOLLOW POC.
[2021-12-12] VITALS: BP 109/59
[2021-12-12] MEDS: CEFEPIME 1,000 MG in DEXTROSE 5% 50 ML IV SCH ×2 (02:06→15:20)
--- NOTE | 2021-12-12 03:37 | NUR ---
PT SLEEPING WITH EYES CLOSED IN NO ACUTE DISTRESS, BREATHING RA O2 SAT 97%, BREATHING EVEN AND UNLABORED. ALL SAFETY MEASURES IN PLACE, WILL CONTINUE TO CLOSELY MONITOR AND FOLLOW POC.
[2021-12-12 04:00] VITALS: BP 115/76
[2021-12-12 05:50] LABS: BASOPHILS % (AUTO) 0.4 % (0.0-2.0); EOSINOPHILS # (AUTO) 0.4 K/uL (0-0.4); EOSINOPHILS % (AUTO) 5.9 % (0.0-4.0); HEMATOCRIT 29.8 % (36-52); HEMOGLOBIN 10.1 g/dL (12.0-18.0); LYMPHOCYTES # (AUTO) 1.2 K/uL (2.0-11.5); MEAN CORPUSCULAR HEMOGLOBIN 28 pg (27-31); MEAN CORPUSCULAR HGB CONC 34 g/dL (33-37); MEAN CORPUSCULAR VOLUME 81.9 fL (80-94); MONOCYTES # (AUTO) 0.7 K/uL (0.8-1.0); MONOCYTES % (AUTO) 10.1 % (1.7-9.3); NEUTROPHILS % (AUTO) 67.6 % (42.2-75.2); PLATELET COUNT (AUTO) 190 K/uL (140-450); RED BLOOD CELL COUNT(AUTO) 3.64 MIL/uL (4.20-6.10); WHITE BLOOD COUNT (AUTO) 7.3 K/uL (4.8-10.8)
[2021-12-12] MEDS: DEXT 5% / NACL 0.45% 1,000 ML IV SCH (06:00)
--- NOTE | 2021-12-12 06:00 | NUR ---
MORNING CARE PROVIDED, PT REPOSITIONED AND CLEANED AFTER HAVING BM, BROWN FORMED BM NOTED. PT IN NO ACUTE DISTRESS, BREATHING RA 02 SAT 99%. PT CONTINUES AOX4. SKIN CONTINUES INTACT WITH NO WOUNDS. ALL SAFETY MEASURES IN PLACE, WILL CONTINUE TO CLOSELY MONITOR AND FOLLOW POC.
[2021-12-12 06:04] LABS: ALBUMIN 2.2 g/dL (3.4-5.0); ANION GAP 7.8 (8-16); CARBON DIOXIDE 28.6 mmol/L (21-32); CREATININE 0.5 mg/dL (0.6-1.3); MAGNESIUM 2.1 mg/dL (1.8-2.4); PHOSPHORUS 2.3 mg/dL (2.5-4.9); POTASSIUM 3.4 mmol/L (3.5-5.1); TOTAL BILIRUBIN 0.4 mg/dL (0.0-1.0)
--- NOTE | 2021-12-12 06:50 | NUR ---
RECEIVED PT AAOX0 3 TO 4 , FROM ICU , NID - O2 SAT WNL , IV SITE INTACT AND PATENT , NO S/SX OF ACUTE DISTRESS NOTED , V/S STABLE , NO COMPLAIN MADE , LEGALLY BLIND BOTH EYES . WILL ENDORSE . V/S 122/72 , HR 84 , 98.8 , RR 18 , O2 SAT 98 %
--- NOTE | 2021-12-12 06:50 | NUR ---
PT TRANSFERRED TO TELEMETRY UNIT ROOM 115, PT IN STABLE CONDITION IN NO APPARENT ACUTE DISTRESS, BREATHING AT RA. BEDSIDE REPORT PROVIDED TO TANDEM OPERATOR. ALL SAFETY MEASURES IN PLACE IN ROOM 115.
[2021-12-12] MEDS: MULTIVITAMIN/MINERALS 1 TAB PO SCH (09:00)
[2021-12-12] MEDS ORDERED: POTASSIUM PHOSPHATE 30 MM in NACL 0.9% 500 ML IV SCH (09:30)
[2021-12-12] MEDS: METOCLOPRAMIDE 10 MG TAB PO SCH ×2 (10:35→13:35)
[2021-12-12] MEDS: PSYLLIUM 12.2 GM/PKT PO SCH (10:35)
[2021-12-12] MEDS: PANTOPRAZOLE 40 MG INJ VIAL IVP SCH (10:35)
[2021-12-12] MEDS ORDERED: CEFE1SOL IV (11:31)
[2021-12-12] MEDS ORDERED: MUPI2CRE22 NS (11:31)
[2021-12-12] MEDS ORDERED: [UNRECOGNIZED DRUG - CODE] IV (11:31)
[2021-12-12] MEDS ORDERED: PANT40EC PO (11:31)
[2021-12-12 12:00] VITALS: BP 120/72
[2021-12-12] MEDS ORDERED: VANCOMYCIN 750 MG in DEXTROSE 5% 250 ML IV SCH (13:00)
--- NOTE | 2021-12-12 15:39 | NUR ---
RECEIVED PATIENT FROM DEPARTING RN, RESTING COMFORTABLY WITH NO S/SX OF PAIN OR DISCOMFORT OBSERVED
--- NOTE | 2021-12-12 15:42 | NUR ---
PATIENT WILL BE DC'D TO [facility] ROOM 9B, TRANSPORT WILL DIRECTOR VACCINE AT 1700, REPORT GIVEN TO RECEIVING NURSE PHYLLIS
[2021-12-12 15:56] VITALS: BP 120/72
--- NOTE | 2021-12-12 17:10 | NUR ---
PATIENT TRANSFERRED TO [facility] VIA PRIVATE TRANSPORT, INSTRUCTIONS GIVEN TO TRANSPORT TEAM, TRIPLE LUMEN PICC IN PLACE
[2021-12-12] MEDS ORDERED: KCL 20 MEQ/WATER INJ PREMIX 100 ML IV SCH (20:00)
== END 2021-12-12 17:23 | DRG 871 ==
LOC: MED 11:25 → MTU 17:46 → MIC 20:08 → MTU 12-12 06:24
PROVIDERS: ADMIT Preventive Medicine Preventive Medicine/Occupational Environmental Medicine; ATTEND Preventive Medicine Preventive Medicine/Occupational Environmental Medicine
PROC: 06HM33Z Insertion of Infusion Device into Right Femoral Vein, Percutaneous Approach (ICD-10-PCS; principal; 2021-12-09)
PROC: 0D9670Z Drainage of Stomach with Drainage Device, Via Natural or Artificial Opening (ICD-10-PCS; 2021-12-09)
PROC: 0DJ08ZZ Inspection of Upper Intestinal Tract, Via Natural or Artificial Opening Endoscopic (ICD-10-PCS; 2021-12-10)
DX: A41.9 Sepsis, unspecified organism (principal); J15.212 Pneumonia due to Methicillin resistant Staphylococcus aureus; J69.0 Pneumonitis due to inhalation of food and vomit; K29.61 Other gastritis with bleeding; K21.01 Gastro-esophageal reflux disease with esophagitis, with bleeding; N39.0 Urinary tract infection, site not specified; N17.9 Acute kidney failure, unspecified; I13.0 Hypertensive heart and chronic kidney disease with heart failure and stage 1 through stage 4 chronic kidney disease, or unspecified chronic kidney disease; M48.54XA Collapsed vertebra, not elsewhere classified, thoracic region, initial encounter for fracture; E87.2 Acidosis; N18.9 Chronic kidney disease, unspecified; E83.52 Hypercalcemia; G40.909 Epilepsy, unspecified, not intractable, without status epilepticus; E88.09 Other disorders of plasma-protein metabolism, not elsewhere classified; I25.10 Atherosclerotic heart disease of native coronary artery without angina pectoris; E87.6 Hypokalemia; Z96.642 Presence of left artificial hip joint; K59.00 Constipation, unspecified; K76.0 Fatty (change of) liver, not elsewhere classified; K57.90 Diverticulosis of intestine, part unspecified, without perforation or abscess without bleeding; E83.39 Other disorders of phosphorus metabolism; R74.01 Elevation of levels of liver transaminase levels; D50.0 Iron deficiency anemia secondary to blood loss (chronic); Z20.822 Contact with and (suspected) exposure to COVID-19; I50.9 Heart failure, unspecified; Z88.1 Allergy status to other antibiotic agents; Z88.8 Allergy status to other drugs, medicaments and biological substances; Z79.899 Other long term (current) drug therapy; Z90.49 Acquired absence of other specified parts of digestive tract; Z87.828 Personal history of other (healed) physical injury and trauma; Z87.442 Personal history of urinary calculi; Z86.16 Personal history of COVID-19
CPT/HCPCS: 36415; 71045; 71275; 80048; 80053; 80202; 81001; 82330; 83605; 83690; 83735; 84100; 85025; 85610; 85651; 85730; 86140; 86886; 86900; 86901; 87040; 87081; 87086; 92610; 93005; 96361; 96365; 96375; 99285; C9113; J0692; J1200; J2250; J3010; J3370; J3475; J3480; J3490; J7030; J7060; J8597; Q9967